=== PATIENT | male | born 1955 | race Caucasian/White ===

== ENCOUNTER → 2017-01-25 | Day surgery (SDC) | payer OTHER ==
[2017-01-12 10:09] VITALS: Ht 170.2 cm; Wt 113.6 kg
[~2017-01-25] VITALS: Ht 170.2 cm; Wt 113.6 kg
[~2017-01-25] MED LIST: ADVIN25050 INH; ALBUAER INH; ALBUT/IPRATROP 3MG/0.5MG NEB 3 ML VIAL INH ONE; AMLO-114 PO; ASPCH81X PO; ENDOSCOPIC MARKER 5 ML SYR ONE; FRS/40 PO; KETAMINE HCL INJ 50 MG/ML 10 ML VIAL ONE; LIDOCAINE HCL 2% 2 ML VIAL (20MG/ML) ONE; METFTAB PO; METO50TA7 PO; MULT-506 PO; OXGN; POTA10TA PO; PROPOFOL IV EMULSION 10 MG/ML 20 ML VIAL IV ONE; SODIUM CHLORIDE 0.9% 500ML 500 ML IV ONE; SPR25 PO; SPRIN/30 INH; SULF800T23 PO
[2017-01-25 12:32] VITALS: PULSE 68; O2SAT 85
--- NOTE | 2017-01-25 12:39 | Endo History and Physical ---
History & Physical Date of Service: Jan 25, 2017. Chief Complaint: Hx of polyps Referring Physician: Anu Adams History of Present Illness 61 yo CM who presents for colonoscopy secondary to history of colon polyps. Past Medical History Arthritis, Hypertension, COPD, Liver Disease Past Surgical History Hx Cardiac Surgery: No Hx Internal Defibrillator: No Hx Pacemaker: No Hx Abdominal Surgery: No Hx of Implantable Prosthesis: No Hx Post-Op Nausea and Vomiting: No Hx Cancer Surgery: No Hx Thoracic Surgery: Yes (BRONCHOSCOPY) Hx Orthopedic: Yes (LEFT/RT SHANNON) Hx Urinary Tract Surgery: No Family History None Social History Smoking Status: Current Every Day Smoker Hx Substance Use: No Hx Alcohol Use: Yes (6 BEERS WEEKLY) Allergies Coded Allergies: No Known Allergies (Unverified , 01/25/17) Current Medications Reported Home Medications Medications Dose Route/Sig Max Daily Dose Days Date Category Bactrim Ds 800MG/160MG (Trimethoprim/Sulfamethoxazole) Tab 1 Tab PO BID 01/15/17 Reported Toprol-Xl (Metoprolol Succinate) 50 Mg Tabcr 50 Mg PO QAM 01/12/17 Reported Spiriva Handihaler (Tiotropium [place]) 30 Puff/540 Mcg Aerp 1 Cap INH QAM 01/12/17 Reported Proventil Hfa (Albuterol Sulfate) 108 Mcg/Act Aer 2 Puff INH Q4H PRN 01/12/17 Reported Multivitamin (Multivitamins) Tab 1 Tab PO QAM 01/12/17 Reported Oxygen Gas 4 Liters NA CONTINOUS 01/12/17 Reported Glucophage Ext Rel (Metformin HCl) 500 Mg Tab 500 Mg PO QAM 01/12/17 Reported K-Tabs (Potassium Chloride) 10 Meq Tab 1 Tab PO QAM 01/12/17 Reported Lasix (Furosemide) 40 Mg Tab 20 Mg PO QPM 01/12/17 Reported Lasix (Furosemide) 40 Mg Tab 40 Mg PO QAM 01/12/17 Reported Aspirin Chewable (Aspirin) 81 Mg Chew 81 Mg PO QAM 01/12/17 Reported Spironolactone 25 Mg Tab 25 Mg PO QAM 04/08/14 Reported Advair Diskus 250-50 Mcg/Dose (Fluticasone Prop/Salmeterol) 14 Puff/1 Inhaler Aerp 1 Puff INH BID 10/02/13 Reported Norvasc (Amlodipine Besylate) 10 Mg Tab 10 Mg PO QAM 01/31/13 Reported Vital Signs Weight (Kilograms): 113.64 Height (Feet): 5 Height (Inches): 7 Date Time Temp Pulse Resp B/P (MAP) Pulse Ox O2 Delivery O2 Flow Rate FiO2 01/25/17 12:32 68 18 85 Mask 3.0 01/25/17 12:28 36.6 73 18 126/72 (90) 92 Mask 6 Physical Exam General Appearance: WD/WN, no apparent distress Respiratory/Chest: Auscultation: breath sounds normal Cardiovascular: Heart Auscultation: RRR Abdomen: Bowel Sounds: normal Inspection & Palpation: soft, non-distended, no tenderness, guarding & rebound Assessment and Plan Assessment: 61 yo CM who presents for colonoscopy secondary to history of colon polyps. Plan: Proceed with colonoscopy.
--- NOTE | 2017-01-25 13:27 | GI REPORT ---
Procedure Date: 01/25/2017 12:23 PM Procedure: Colonoscopy Indications: High risk colon cancer surveillance: Personal history of colonic polyps Medicines: Monitored Anesthesia Care Complications: No immediate complications. Estimated Blood Loss: Estimated blood loss: none. Procedure: Pre-Anesthesia Assessment: - Prior to the procedure, a History and Physical was performed, and patient medications and allergies were reviewed. The patient's tolerance of previous anesthesia was also reviewed. The risks and benefits of the procedure and the sedation options and risks were discussed with the patient. All questions were answered, and informed consent was obtained. Prior Anticoagulants: The patient has taken aspirin, last dose was 1 day prior to procedure. ASA Grade Assessment: IV - A patient with severe systemic disease that is a constant threat to life. After reviewing the risks and benefits, the patient was deemed in satisfactory condition to undergo the procedure. After I obtained informed consent, the scope was passed under direct vision. Throughout the procedure, the patient's blood pressure, pulse, and oxygen saturations were monitored continuously. The scope was introduced through the anus and advanced to the cecum, identified by appendiceal orifice and ileocecal valve. The colonoscopy was performed without difficulty. The patient tolerated the procedure well. The quality of the bowel preparation was good. The terminal ileum, ileocecal valve, appendiceal orifice, and rectum were photographed. Findings: A 30 mm polypoid lesion was found in the ascending colon. The lesion was multi-lobulated. No bleeding was present. This was biopsied with a cold forceps for histology. Area was tattooed with an injection of 4 mL of Becca ink. A 4 mm polyp was found in the rectum. The polyp was sessile. The polyp was removed with a hot snare. Resection and retrieval were complete. Non-bleeding internal hemorrhoids were found during retroflexion. The hemorrhoids were small. Impression: - Rule out malignancy, polypoid lesion in the ascending colon. Biopsied. Tattooed. - One 4 mm polyp in the rectum, removed with a hot snare. Resected and retrieved. - Non-bleeding internal hemorrhoids. Recommendation: - Resume previous diet. - Continue present medications. - Repeat colonoscopy for surveillance based on pathology results. - Return to primary care physician as previously scheduled. Earnest Andersen DO 01/25/2017 1:27:34 PM This report has been signed electronically. Note Initiated On: 01/25/2017 12:23 PM I attest to the content of the Intraoperative Record and orders documented therein, exceptions below
--- NOTE | 2017-01-25 13:28 | Discharge Instructions ---
Endoscopy Patient Instructions Date / Procedure(s) Performed Jan 25, 2017. Colonoscopy Allergy Information Coded Allergies: No Known Allergies (Unverified , 01/25/17) Discharge Date / Findings Jan 25, 2017. Polypoid mass in Ascending colon s/p biopsies with Becca Ink tattoo Rectal polyp Internal hemorrhoids Medication Instructions Stopped Medication(s): Aspirin last taken on 01/24/17 Metformin last taken on OK to resume all medications today as prescribed Reported Home Medications Medications Dose Route/Sig Max Daily Dose Days Date Category Bactrim Ds 800MG/160MG (Trimethoprim/Sulfamethoxazole) Tab 1 Tab PO BID 01/15/17 Reported Toprol-Xl (Metoprolol Succinate) 50 Mg Tabcr 50 Mg PO QAM 01/12/17 Reported Spiriva Handihaler (Tiotropium [place]) 30 Puff/540 Mcg Aerp 1 Cap INH QAM 01/12/17 Reported Proventil Hfa (Albuterol Sulfate) 108 Mcg/Act Aer 2 Puff INH Q4H PRN 01/12/17 Reported Multivitamin (Multivitamins) Tab 1 Tab PO QAM 01/12/17 Reported Oxygen Gas 4 Liters NA CONTINOUS 01/12/17 Reported Glucophage Ext Rel (Metformin HCl) 500 Mg Tab 500 Mg PO QAM 01/12/17 Reported K-Tabs (Potassium Chloride) 10 Meq Tab 1 Tab PO QAM 01/12/17 Reported Lasix (Furosemide) 40 Mg Tab 20 Mg PO QPM 01/12/17 Reported Lasix (Furosemide) 40 Mg Tab 40 Mg PO QAM 01/12/17 Reported Aspirin Chewable (Aspirin) 81 Mg Chew 81 Mg PO QAM 01/12/17 Reported Spironolactone 25 Mg Tab 25 Mg PO QAM 04/08/14 Reported Advair Diskus 250-50 Mcg/Dose (Fluticasone Prop/Salmeterol) 14 Puff/1 Inhaler Aerp 1 Puff INH BID 10/02/13 Reported Norvasc (Amlodipine Besylate) 10 Mg Tab 10 Mg PO QAM 01/31/13 Reported Provider Instructions Activity Restrictions - No exercising or heavy lifting for 24 hours. - Do not drink alcohol the day of the procedure. - Do not drive a car or operate machinery until the day after the procedure. - Do not make any important decisions or sign important papers in 24 hours after the procedure. Following Day: - Return to full activity which may include returning to work/school. Diet Start your diet with liquids and light foods (jello, soup, juice, toast). Then eat your usual diet if not nauseated. Treatment For Common After Affects For mild abdominal pain, bloating, or excessive gas: - Rest - Eat lightly - Lie on right side Follow-Up Information Follow-up with Anu Adams as scheduled Anesthesia Information What You Should Know You have had a procedure that required some medicine to reduce anxiety and discomfort. This treatment is called moderate sedation. After receiving the treatment, you may be sleepy, but you will be able to breathe on your own. The effects of the treatment may last for several hours. Follow these instructions along with Activity/Diet recommendations noted above: * Do NOT do anything where dizziness or clumsiness would be dangerous. * Rest quietly at home today, then you can be up and about tomorrow. * Have a responsible person stay with you the rest of today. * You may have had an I.V. today. If so, you may take the dressing off later today. Recommendations Call your doctor if: * Trouble breathing * Continuous vomiting for more than 24 hours * Temperature above 101 degrees * Severe abdominal pain or bloating * Pain not relieved by pain medicine ordered * There is increased drainage or redness from any incision * A large amount of rectal bleeding greater than 2-3 tablespoons. (If you had a polyp/s removed or have hemorrhoids, a small amount of blood - from the rectum is to be expected.) * You have any unanswered questions or concerns. IN THE EVENT OF A SERIOUS EMERGENCY, GO TO THE NEAREST EMERGENCY ROOM Your discharge instructions were prepared by provider Earnest Andersen. Patient Instructions Signature Page Michael Berry Patient (or Guardian) Signature/Date: I have read and understand the instructions given to me by my caregivers. Caregiver/RN/Doctor Signature/Date: The above-named patient and/or guardian has received patient instructions on this date. + Original Patient Signature Page (only) stays with chart. Please make copy for patient.
--- NOTE | 2017-01-25 13:42 | Anesthesiology Progress Note ---
Anesthesia Post Op Note Date & Time Jan 25, 2017 at 13:42 Vital Signs Pain Intensity: 0 Vital Signs Past 12 Hours Date Time Temp Pulse Resp B/P (MAP) Pulse Ox O2 Delivery O2 Flow Rate FiO2 01/25/17 13:32 69 18 121/68 (85) 90 Mask 5 01/25/17 13:20 87 5 01/25/17 13:17 74 18 112/71 (85) 83 Mask 5 01/25/17 12:32 68 18 85 Mask 3.0 01/25/17 12:28 36.6 73 18 126/72 (90) 92 Mask 6 Notes Mental Status: alert / awake / arousable, participated in evaluation Pt Amnestic to Procedure: Yes Nausea / Vomiting: adequately controlled Pain: adequately controlled Airway Patency, RR, SpO2: stable & adequate BP & HR: stable & adequate Hydration State: stable & adequate Anesthetic Complications: no major complications apparent
[2017-01-25 13:47] VITALS: BP 134/73; PULSE 68; O2SAT 85
== END | disposition home or self-care (01) ==
LOC: C.GI 11:37
PROVIDERS: ATTEND Internal Medicine
DX: Z12.11 Encounter for screening for malignant neoplasm of colon (principal); D12.2 Benign neoplasm of ascending colon; K62.1 Rectal polyp; K64.8 Other hemorrhoids; Z86.010 Personal history of colon polyps; Z86.19 Personal history of other infectious and parasitic diseases; E11.9 Type 2 diabetes mellitus without complications; J44.9 Chronic obstructive pulmonary disease, unspecified; F17.200 Nicotine dependence, unspecified, uncomplicated; Z96.643 Presence of artificial hip joint, bilateral; Z98.42 Cataract extraction status, left eye

== ENCOUNTER 2017-03-07 17:00 | Inpatient (IN) | payer OTHER ==
[~2017-03-07] VITALS: Ht 170.2 cm; Wt 106.0 kg
[~2017-03-07 17:00] MED LIST changes: -ALBUT/IPRATROP 3MG/0.5MG NEB 3 ML VIAL INH ONE; -AMLO-114 PO; +AMLO10TA3 PO; +CEPH500C2 PO; -ENDOSCOPIC MARKER 5 ML SYR ONE; +FURO-85 PO; -KETAMINE HCL INJ 50 MG/ML 10 ML VIAL ONE; -LIDOCAINE HCL 2% 2 ML VIAL (20MG/ML) ONE; -METO50TA7 PO; +METO50TA8 PO; -PROPOFOL IV EMULSION 10 MG/ML 20 ML VIAL IV ONE; -SODIUM CHLORIDE 0.9% 500ML 500 ML IV ONE; +SPIR25TA6 PO; -SPR25 PO; -SULF800T23 PO
[2017-03-07] MEDS ORDERED: ALBUT/IPRATROP 3MG/0.5MG NEB 3 ML VIAL INH ONE (17:15)
--- NOTE | 2017-03-07 17:21 | EMERGENCY ROOM VISIT NOTE ---
History Report prepared by Marina: Armida Moran Under the Supervision of: Dr. Tiburcio Romo M.D. First contact with patient: 16:59 Stated Complaint: RESP. DISTRESS History of Present Illness The patient is a 61 year old male who presents to the Emergency Room with complaints of persistent SOB starting several days ago. The patient has a history of severe COPD and is normally on 4L of oxygen. 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 He was found to be excessively hypoxic. He has been unable to sleep lying down for the past several days because it worsens his SOB. He also reports increased fluid in the legs and abdomen. His Lasix was doubled 5 days ago. The patient was seen at the wound care clinic 5 days ago. He is currently on Keflex. He is not on any blood thinners besides aspirin. He is not on CPAP or BiPAP at home. Source of History: patient Onset: several days ago Position: other (global) Quality: other (SOB) Timing: other (persistent) Modifying Factors (Worsening): other (lying down) Note: Pt reports increased leg swelling and fluid in abdomen. Review of Systems See HPI for pertinent positives & negatives. A total of 10 systems reviewed and were otherwise negative. Past Medical & Surgical Medical Problems: (1) Chronic respiratory failure (2) COPD (chronic obstructive pulmonary disease) (3) History of hepatitis C (4) Hypertension (5) Rigth Hip DJD Social History Problems: (1) Alcohol use (2) Tobacco use Family History No pertinent family history stated. Social History Smoking Status: Current Every Day Smoker Drug Use: none Marital Status: single Occupation Status: employed, disabled Current/Historical Medications Scheduled Amlodipine (Norvasc), 10 MG PO QAM Aspirin (Aspirin Ec), 81 MG PO DAILY Cephalexin Monohydrate (Keflex), 500 MG PO TID Fluticasone Prop/Salmeterol (Advair Diskus 250-50 Mcg/Dose), 1 PUFF INH BID Furosemide (Lasix), 40 MG PO BID Furosemide (Lasix), 20 MG PO BID Home O2 Therapy (Oxygen), 4 LITERS NA CONTINOUS Metformin Ext Rel (Glucophage Ext Rel), 500 MG PO QAM Metoprolol Succ (Toprol Xl) (Toprol-Xl), 50 MG PO QAM Multivitamin (Multivitamin), 1 TAB PO QAM Potassium Chloride (K-Tabs), 10 MEQ PO QAM Spironolactone (Spironolactone), 25 MG PO QAM Tiotropium [place] (Spiriva Handihaler), 1 CAP INH QAM Scheduled PRN Albuterol Sulfate (Proventil Hfa), 2 PUFF INH Q4H PRN for Shortness of Breath Allergies Coded Allergies: No Known Allergies (Unverified , 03/07/17) Physical Exam Vital Signs Date Time Temp Pulse Resp B/P (MAP) Pulse Ox O2 Delivery O2 Flow Rate FiO2 03/07/17 19:25 77 14 94 03/07/17 19:21 77 17 90 03/07/17 19:16 75 18 92 03/07/17 19:11 78 14 94 03/07/17 19:06 73 17 94 03/07/17 19:01 75 16 125/81 95 03/07/17 18:56 74 15 96 03/07/17 18:51 76 23 93 03/07/17 18:46 73 16 94 03/07/17 18:41 74 19 93 03/07/17 18:36 74 19 93 03/07/17 18:31 67 15 120/71 92 03/07/17 18:26 66 13 93 03/07/17 18:21 67 13 94 03/07/17 18:16 68 15 94 03/07/17 18:11 66 17 92 03/07/17 18:06 67 22 94 03/07/17 18:01 66 127/72 94 BiPAP 03/07/17 18:00 65 14 93 03/07/17 17:46 100 BiPAP 03/07/17 17:34 57 100 60 03/07/17 17:33 53 13 100 BiPAP/CPAP 60 03/07/17 17:31 120/72 03/07/17 17:30 87 Nasal Cannula 7.0 03/07/17 17:30 62 14 97 BiPAP 03/07/17 17:20 36.6 65 20 127/78 86 Nasal Cannula 6.0 03/07/17 17:20 86 Nasal Cannula 03/07/17 17:13 68 03/07/17 17:06 127/79 Physical Exam GENERAL: Patient is a healthy-appearing well-nourished male HEAD: Normocephalic atraumatic EYES: Ocular movements intact pupils equal and react to light OROPHARYNX mucous membranes are moist no exudates present no erythema or edema present NECK: Supple no nuchal rigidity CHEST: Good equal expansion LUNGS: Distant breath sounds. CARDIAC: Normal S1 and S2 ABDOMEN: Soft nontender no guarding BACK: No CVA tenderness EXTREMITIES: Chronic venous stasis changes bilaterally to the legs. NEURO: Patient is following commands and answering questions appropriately. Alert and oriented x3 Cranial Nerves 2-12 grossly intact Medical Decision & Procedures ER Provider Diagnostic Interpretation: X-ray results as stated below per interpretation by me and the radiologist: CHEST ONE VIEW PORTABLE CLINICAL HISTORY: 61 years-old Male presenting with Pt c/o hypoxia. TECHNIQUE: Portable upright AP view of the chest was obtained. COMPARISON: 08/26/2015. FINDINGS: Atherosclerosis of aortic arch. Cardiac silhouette remains enlarged. Prominence of pulmonary vasculature unchanged. Interval increase in patchy diffuse bilateral opacities with a mid to basilar predominance. No large pleural effusion or pneumothorax. Osseous structures normal. Upper abdomen normal. IMPRESSION: 1. Cardiomegaly in the setting of pulmonary vascular prominence and mid to basilar bilateral patchy opacities concerning for pulmonary edema. Differential considerations include multifocal pneumonia or less likely aspiration. Electronically signed by: Milton Johnson M.D. 03/07/2017 6:28 PM Dictated Date/Time: 03/07/2017 6:26 PM Laboratory Results 03/07/17 17:30 Red Blood Count 5.09, Mean Corpuscular Volume 85.1, Mean Corpuscular Hemoglobin 26.3, Mean Corpuscular Hemoglobin Concent 30.9, Mean Platelet Volume 9.2, Neutrophils (%) (Auto) 77.8, Lymphocytes (%) (Auto) 13.6, Monocytes (%) (Auto) 6.4, Eosinophils (%) (Auto) 1.0, Basophils (%) (Auto) 1.0, Neutrophils # (Auto) 6.52, Lymphocytes # (Auto) 1.14, Monocytes # (Auto) 0.54, Eosinophils # (Auto) 0.08, Basophils # (Auto) 0.08 03/07/17 17:30 Test 03/07/17 17:30 03/07/17 17:31 03/07/17 17:36 03/07/17 17:45 White Blood Count 8.38 K/uL (4.8-10.8) Red Blood Count 5.09 M/uL (4.7-6.1) Hemoglobin 13.4 g/dL (14.0-18.0) Hematocrit 43.3 % (42-52) Mean Corpuscular Volume 85.1 fL (80-100) Mean Corpuscular Hemoglobin 26.3 pg (25-34) Mean Corpuscular Hemoglobin Concent 30.9 g/dl (32-36) Platelet Count 218 K/uL (130-400) Mean Platelet Volume 9.2 fL (7.4-10.4) Neutrophils (%) (Auto) 77.8 % Lymphocytes (%) (Auto) 13.6 % Monocytes (%) (Auto) 6.4 % Eosinophils (%) (Auto) 1.0 % Basophils (%) (Auto) 1.0 % Neutrophils # (Auto) 6.52 K/uL (1.4-6.5) Lymphocytes # (Auto) 1.14 K/uL (1.2-3.4) Monocytes # (Auto) 0.54 K/uL (0.11-0.59) Eosinophils # (Auto) 0.08 K/uL (0-0.5) Basophils # (Auto) 0.08 K/uL (0-0.2) RDW Standard Deviation 62.2 fL (36.4-46.3) RDW Coefficient of Variation 20.1 % (11.5-14.5) Immature Granulocyte % (Auto) 0.2 % Immature Granulocyte # (Auto) 0.02 K/uL (0.00-0.02) Polychromasia 1+ Anisocytosis PRESENT Macrocytosis PRESENT Prothrombin Time 11.9 SECONDS (9.0-12.0) Prothromb Time International Ratio 1.1 (0.9-1.1) Estimated GFR () 84.5 Estimated GFR (Non- 72.9 BUN/Creatinine Ratio 10.0 (10-20) Calcium Level 8.6 mg/dl (8.5-10.1) Magnesium Level 2.0 mg/dl (1.8-2.4) Total Bilirubin 1.0 mg/dl (0.2-1) Aspartate Amino Transf (AST/SGOT) 12 U/L (15-37) Alanine Aminotransferase (ALT/SGPT) 15 U/L (12-78) Alkaline Phosphatase 98 U/L (45-117) Total Creatine Kinase 22 U/L (39-308) Creatine Kinase MB 0.7 ng/ml (0.5-3.6) Creatine Kinase MB Ratio 3.2 (0-3.0) Troponin I < 0.015 ng/ml (0-0.045) Pro-B-Type Natriuretic Peptide 4726 pg/ml (0-900) Total Protein 7.8 gm/dl (6.4-8.2) Albumin 3.1 gm/dl (3.4-5.0) Globulin 4.7 gm/dl (2.5-4.0) Albumin/Globulin Ratio 0.7 (0.9-2) Bedside Lactic Acid Venous 1.88 mmol/L (0.90-1.70) Bedside Hemoglobin 15.0 g/dl (14.0-18.0) Bedside Hematocrit 44 % (42-52) Bedside Sodium 138 mEq/L (135-144) Bedside Potassium 3.9 mEq/L (3.3-5.0) Bedside Chloride 98 mEq/L (101-112) Bedside Total CO2 30 mEq/l (24-31) Anion Gap 16.0 mmol/L (16-25) Bedside Blood Urea Nitrogen 10 mg/dl (7-18) Bedside Creatinine 1.1 mg/dl (0.6-1.3) Bedside Glucose (other) 92 mg/dl (70-99) Bedside Ionized Calcium (Edgar) 1.09 mmol/l (1.12-1.32) Influenza Type A (RT-PCR) Neg for Influ A (NEG) Influenza Type A Antigen Neg for Influ A (NEG) Influenza Type B Antigen Neg for Influ B (NEG) Influenza Type B (RT-PCR) Neg for Influ B (NEG) Test 03/07/17 18:07 Arterial Blood pH 7.46 (7.35-7.45) Arterial Blood Partial Pressure CO2 38 mmHg (35-46) Arterial Blood Partial Pressure O2 70 mm/Hg (80-95) Arterial Blood HCO3 27 mmol/L (19-24) Arterial Blood Oxygen Saturation 93.9 % (90-95) Arterial Blood Base Excess 2.9 mEq/L (-9-1.8) Arterial Blood Gas Delivery 40% Brian Test POS (POS) Labs reviewed by ED physician. Medications Administered Medications (Trade) Dose Ordered Sig/González Route Start Time Stop Time Status Last Admin Dose Admin Albuterol/ Ipratropium (Duoneb) 12 ml ONE ONCE INH 03/07/17 17:15 03/07/17 17:18 DC 03/07/17 17:32 12 ML Magnesium Sulfate (Magnesium Sulfate) 1 gm NOW STAT IV 03/07/17 18:15 03/07/17 18:16 DC 03/07/17 18:43 1 GM Furosemide (Lasix Inj) 40 mg NOW STAT IV 03/07/17 18:28 03/07/17 18:29 DC 03/07/17 18:43 40 MG Cefepime HCl 2000 mg/Dextrose 122 ml @ 200 mls/hr NOW STAT IV 03/07/17 18:31 03/07/17 19:07 DC 03/07/17 20:10 200 MLS/HR Levofloxacin (Levaquin / D5W) 750 mg NOW STAT IV 03/07/17 18:31 03/07/17 18:33 DC 03/07/17 20:29 750 MG Vancomycin HCl 1000 mg/Sodium Chloride 270 ml @ 125 mls/hr NOW STAT IV 03/07/17 18:31 03/07/17 20:40 DC 03/07/17 19:34 125 MLS/HR ECG Indication: SOB/dyspnea Rate (beats per minute): 64 Rhythm: normal sinus Findings: T-wave inversion (Anterior), no acute ischemic change, no ectopy ED Course 1711: Past medical records reviewed. The patient was evaluated in room B7. A complete history and physical examination was performed. 1715: Duoneb 12 ml INH. 1806: Upon reexamination the patient is feeling much better. I discussed results and treatment plan with the patient. He verbalizes agreement and understanding. The patient will be evaluated for further management. 1815: Magnesium Sulfate 1 gm IV. 1828: Lasix Inj 40 mg IV. 1831: Vancomycin HCl 1000 mg/Sodium Chloride 270 ml @ 125 mls/hr IV, Levofloxacin 750 mg IV, Cefepime HCl 2000 mg/Dextrose 122 ml @ 200 mls/hr IV. 1840: I discussed the patient's case with Dr. Bojorquez, [facility] hospitalist, she has agreed to evaluate the patient for further management and care. Medical Decision Differential diagnosis: Etiologies such as infections, reactive airway disease, pneumonia, pneumothorax , COPD, CHF, cardiac ischemia, pulmonary embolism, musculoskeletal, gastrointestinal, as well as others were entertained. This is a 61-year-old male who presents emergency department with shortness of breath. The patient was sent to the emergency department because he is hypoxic. He was placed on BiPAP and given an hour-long breathing treatment. He was also given Lasix based on the patient's chest x-ray. In addition the patient was pancultured up and started on antibiotics including cefepime Levaquin and vancomycin. Repeat examination revealed improvement patient's symptoms. The patient was discussed with the hospitalist service who agreed to admit the patient. Patient and family were in agreement with the treatment plan. Medication Reconcilliation Current Medication List: was personally reviewed by me Blood Pressure Screening Patient's blood pressure: Normal blood pressure Blood pressure disposition: Did not require urgent referral Consults Time Called: 1832 Consulting Physician: Dr. Bojorquez [facility] hospitalist Returned Call: 1840 I discussed the patient's case with her, she has agreed to evaluate the patient for further management and care. Impression Primary Impression: Hypoxia Additional Impression: CHF exacerbation Critical Care I have personally spent greater than 30 minutes of critical care time in the direct management of this patient. This includes bedside care, interpretation of diagnostic studies, and testing, discussion with consultants, patient, and family members, and other required patient management activities. This 30 minutes is in excess of all separately billable procedures. Scribe Attestation The scribe's documentation has been prepared under my direction and personally reviewed by me in its entirety. I confirm that the note above accurately reflects all work, treatment, procedures, and medical decision making performed by me. Departure Information Dispostion Being Evaluated By Hospitalist Referrals Anu Adams M.D. (PCP) Problem Qualifiers Additional Impression: CHF exacerbation Congestive heart failure type: systolic Qualified Codes: I50.23 - Acute on chronic systolic (congestive) heart failure
[2017-03-07 17:33] VITALS: PULSE 53; O2SAT 100
[2017-03-07 17:34] VITALS: PULSE 57; O2SAT 100
[2017-03-07 17:47] LABS: BASO ABS # 0.08 K/uL (0-0.2); EOS ABS # 0.08 K/uL (0-0.5); HEMATOCRIT 43.3 % (42-52); HEMOGLOBIN 13.4 g/dL (14.0-18.0); IG# 0.02 K/uL (0.00-0.02); LYMPH % 13.6 %; LYMPH ABS # 1.14 K/uL (1.2-3.4); MEAN CELL VOLUME 85.1 fL (80-100); MEAN CORPUSCULAR HEMOGLOBIN 26.3 pg (25-34); MEAN CORPUSCULAR HGB CONC 30.9 g/dl (32-36); MEAN PLATELET VOLUME 9.2 fL (7.4-10.4); MONO % 6.4 %; MONO ABS # 0.54 K/uL (0.11-0.59); NEUT % 77.8 %; NEUT ABS # 6.52 K/uL (1.4-6.5); PLATELET COUNT 218 K/uL (130-400); RED CELL DISTRIBUTION WIDTH CV 20.1 % (11.5-14.5); RED CELL DISTRIBUTION WIDTH SD 62.2 fL (36.4-46.3); WHITE BLOOD COUNT 8.38 K/uL (4.8-10.8)
[2017-03-07 18:03] LABS: INR 1.1 (0.9-1.1)
[2017-03-07 18:11] LABS: ALBUMIN 3.1 gm/dl (3.4-5.0); ALT/SGPT 15 U/L (12-78); AST/SGOT 12 U/L (15-37); BLOOD UREA NITROGEN 11 mg/dl (7-18); CALCIUM 8.6 mg/dl (8.5-10.1); CARBON DIOXIDE 28 mmol/L (21-32); CREATININE 1.09 mg/dl (0.60-1.40); GLUCOSE 84 mg/dl (70-99); POTASSIUM 3.8 mmol/L (3.5-5.1); SODIUM 134 mmol/L (136-145)
[2017-03-07 18:12] LABS: INFLUENZA B ANTIGEN Neg for Influ B (NEG)
[2017-03-07 18:15] LABS: ALKALINE PHOSPHATASE 98 U/L (45-117); CKMB 0.7 ng/ml (0.5-3.6); TOTAL PROTEIN 7.8 gm/dl (6.4-8.2)
[2017-03-07] MEDS ORDERED: MAGNESIUM SULFATE 1GM / D5W 1 GM BAG IV STA (18:15)
[2017-03-07] MEDS ORDERED: ASPI81TA28 PO (18:23)
[2017-03-07] MEDS ORDERED: FUROSEMIDE 40 MG/4 ML VIAL IV STA (18:28)
--- NOTE | 2017-03-07 18:29 | DIAGNOSTIC IMAGING REPORT ---
CHEST ONE VIEW PORTABLE CLINICAL HISTORY: 61 years-old Male presenting with Pt c/o hypoxia. TECHNIQUE: Portable upright AP view of the chest was obtained. COMPARISON: 08/26/2015. FINDINGS: Atherosclerosis of aortic arch. Cardiac silhouette remains enlarged. Prominence of pulmonary vasculature unchanged. Interval increase in patchy diffuse bilateral opacities with a mid to basilar predominance. No large pleural effusion or pneumothorax. Osseous structures normal. Upper abdomen normal. IMPRESSION: 1. Cardiomegaly in the setting of pulmonary vascular prominence and mid to basilar bilateral patchy opacities concerning for pulmonary edema. Differential considerations include multifocal pneumonia or less likely aspiration. Electronically signed by: Milton Johnson M.D. 03/07/2017 6:28 PM Dictated Date/Time: 03/07/2017 6:26 PM
[2017-03-07] MEDS ORDERED: VANCOMYCIN IV 1,000 MG in SODIUM CHLORIDE 0.9% 250ML 250 ML IV STA (18:31)
[2017-03-07] MEDS ORDERED: CEFEPIME IV 2,000 MG in DEXTROSE 5% 100ML 100 ML IV STA (18:31)
[2017-03-07] MEDS ORDERED: LEVAQUIN 750MG / 150ML D5W IV STA (18:31)
[2017-03-07 18:58] LABS: INFLUENZA A PCR Neg for Influ A (NEG); INFLUENZA B PCR Neg for Influ B (NEG)
[2017-03-07] MEDS ORDERED: ONDANSETRON INJ 2 MG/ML 2 ML VIAL IV PRN (19:30)
[2017-03-07] MEDS ORDERED: POLYETHYLENE (MIRALAX) 17 GM PACK PO PRN (19:30)
[2017-03-07] MEDS ORDERED: ACETAMINOPHEN 325 MG TAB PO PRN (19:30)
[2017-03-07 19:36] LABS: ISTAT CREATININE 1.1 mg/dl (0.6-1.3); ISTAT IONIZED CALCIUM 1.09 mmol/l (1.12-1.32); ISTAT POTASSIUM 3.9 mEq/L (3.3-5.0)
[2017-03-07] MEDS ORDERED: LEVOFLOXACIN / D5W 750 MG in PREMIXED IN D5W 150 ML IV SCH (19:45)
--- NOTE | 2017-03-07 20:08 | History and Physical ---
History & Physical Date & Time of Service: Mar 07, 2017 at 19:01 Chief Complaint: Resp. Distress Primary Care Physician: Anu Adams M.D. History of Present Illness Source: patient, family arrived to the ED after seeing his climate change risk assessor in the office today and he recommended he be evaluated here. He has had increasing lower extremity edema and sob for the past couple of weeks and increased his lasix on Sunday. He has had a mild cough with yellow sputum. No fever, but he has had chills. No decrease in appetite, no nausea or vomiting, no diarrhea. He has had a decrease in urination. No cp or palpitations. He wears 4 liters of oxygen at home. He reports quitting smoking a week ago. He has a history of MSSA in his lower extremity wounds for which he takes Keflex tid and sees wound clinic. ROS Constitutional: no aches, sweats or fever Respiratory: see HPI, no wheezing Cardiac: no chest pain, palpitations, edema, lightheadedness, baseline orthopnea GI: no abdominal pain, nausea, vomiting, diarrhea or constipation : no dysuria or hesitancy Extremities: no joint pain or weakness Skin: no rash, wounds right and left lower extremities Other systems reviewed an negative Past Medical/Surgical History Medical Problems: (1) Chronic respiratory failure Status: Chronic (2) COPD (chronic obstructive pulmonary disease) Status: Chronic (3) History of hepatitis C Permanent Comment: received interferon Status: Chronic (4) Hypertension Status: Chronic (5) Rigth Hip DJD Status: Chronic Social History Problems: (1) Alcohol use Status: Chronic (2) Tobacco use Status: Chronic Family History Mother from CVA, DM Father from lung CA Social History Smoking Status: Former Smoker (quit a week ago) Smokeless Tobacco Use: No Alcohol Use: none (no alcohol in over a month) Drug Use: none Marital Status: single Housing status: lives alone Occupational Status: unemployed (disability), disabled Immunizations History of Influenza Vaccine: Yes Influenza Vaccine Date: Dec 31, 2012 History of Tetanus Vaccine?: unsure History of Pneumococcal: No History of Hepatitis B Vaccine: Yes Hepatitis Immunization Date: Jan 28, 2003 Allergies Coded Allergies: No Known Allergies (Unverified , 03/07/17) Home Medications Scheduled Amlodipine (Norvasc), 10 MG PO QAM Aspirin (Aspirin Ec), 81 MG PO DAILY Cephalexin Monohydrate (Keflex), 500 MG PO TID Fluticasone Prop/Salmeterol (Advair Diskus 250-50 Mcg/Dose), 1 PUFF INH BID Furosemide (Lasix), 40 MG PO BID Furosemide (Lasix), 20 MG PO BID Home O2 Therapy (Oxygen), 4 LITERS NA CONTINOUS Metformin Ext Rel (Glucophage Ext Rel), 500 MG PO QAM Metoprolol Succ (Toprol Xl) (Toprol-Xl), 50 MG PO QAM Multivitamin (Multivitamin), 1 TAB PO QAM Potassium Chloride (K-Tabs), 10 MEQ PO QAM Spironolactone (Spironolactone), 25 MG PO QAM Tiotropium [place] (Spiriva Handihaler), 1 CAP INH QAM Scheduled PRN Albuterol Sulfate (Proventil Hfa), 2 PUFF INH Q4H PRN for Shortness of Breath Physical Exam Vital Signs Date Time Temp Pulse Resp B/P (MAP) Pulse Ox O2 Delivery O2 Flow Rate FiO2 03/07/17 18:01 66 127/72 94 BiPAP 03/07/17 18:00 65 14 93 03/07/17 17:46 100 BiPAP 03/07/17 17:34 57 100 60 03/07/17 17:33 53 13 100 BiPAP/CPAP 60 03/07/17 17:31 120/72 03/07/17 17:30 87 Nasal Cannula 7.0 03/07/17 17:30 62 14 97 BiPAP 03/07/17 17:20 36.6 65 20 127/78 86 Nasal Cannula 6.0 03/07/17 17:20 86 Nasal Cannula 03/07/17 17:13 68 03/07/17 17:06 127/79 General: no distress Eyes: normal inspection, PERLL Respiratory: chest non tender, clear to auscultation, normal breath sounds, no respiratory distress, no accessory muscle use Cardiac: regular rate and rhythm, no rub or gallop, no murmur, +1 pitting edema lower extremities (skin very taught) GI/: active bowel sounds, no abd pain or tenderness, firm, distended Extremities: normal range of motion, normal strength, non tender Neuro/Psych: alert and oriented x 3, normal mood and affect Skin: dusky lower extremities with multiple surface sloughy wounds Diagnostics Laboratory Results Results Past 24 Hours Test 03/07/17 17:30 03/07/17 17:45 03/07/17 18:07 Range/Units White Blood Count 8.38 4.8-10.8 K/uL Red Blood Count 5.09 4.7-6.1 M/uL Hemoglobin 13.4 14.0-18.0 g/dL Hematocrit 43.3 42-52 % Mean Corpuscular Volume 85.1 80-100 fL Mean Corpuscular Hemoglobin 26.3 25-34 pg Mean Corpuscular Hemoglobin Concent 30.9 32-36 g/dl Platelet Count 218 130-400 K/uL Mean Platelet Volume 9.2 7.4-10.4 fL Neutrophils (%) (Auto) 77.8 % Lymphocytes (%) (Auto) 13.6 % Monocytes (%) (Auto) 6.4 % Eosinophils (%) (Auto) 1.0 % Basophils (%) (Auto) 1.0 % Neutrophils # (Auto) 6.52 1.4-6.5 K/uL Lymphocytes # (Auto) 1.14 1.2-3.4 K/uL Monocytes # (Auto) 0.54 0.11-0.59 K/uL Eosinophils # (Auto) 0.08 0-0.5 K/uL Basophils # (Auto) 0.08 0-0.2 K/uL RDW Standard Deviation 62.2 36.4-46.3 fL RDW Coefficient of Variation 20.1 11.5-14.5 % Immature Granulocyte % (Auto) 0.2 % Immature Granulocyte # (Auto) 0.02 0.00-0.02 K/uL Prothrombin Time 11.9 9.0-12.0 SECONDS Prothromb Time International Ratio 1.1 0.9-1.1 Sodium Level 134 136-145 mmol/L Potassium Level 3.8 3.5-5.1 mmol/L Chloride Level 99 98-107 mmol/L Carbon Dioxide Level 28 21-32 mmol/L Anion Gap 7.0 3-11 mmol/L Blood Urea Nitrogen 11 7-18 mg/dl Creatinine 1.09 0.60-1.40 mg/dl Estimated GFR () 84.5 Estimated GFR (Non- 72.9 BUN/Creatinine Ratio 10.0 10-20 Random Glucose 84 70-99 mg/dl Calcium Level 8.6 8.5-10.1 mg/dl Total Bilirubin 1.0 0.2-1 mg/dl Aspartate Amino Transf (AST/SGOT) 12 15-37 U/L Alanine Aminotransferase (ALT/SGPT) 15 12-78 U/L Alkaline Phosphatase 98 45-117 U/L Total Creatine Kinase 22 39-308 U/L Creatine Kinase MB 0.7 0.5-3.6 ng/ml Creatine Kinase MB Ratio 3.2 0-3.0 Troponin I < 0.015 0-0.045 ng/ml Total Protein 7.8 6.4-8.2 gm/dl Albumin 3.1 3.4-5.0 gm/dl Globulin 4.7 2.5-4.0 gm/dl Albumin/Globulin Ratio 0.7 0.9-2 Influenza Type A (RT-PCR) Neg for Influ A NEG Influenza Type A Antigen Neg for Influ A NEG Influenza Type B Antigen Neg for Influ B NEG Influenza Type B (RT-PCR) Neg for Influ B NEG Arterial Blood pH 7.46 7.35-7.45 Arterial Blood Partial Pressure CO2 38 35-46 mmHg Arterial Blood Partial Pressure O2 70 80-95 mm/Hg Arterial Blood HCO3 27 19-24 mmol/L Arterial Blood Oxygen Saturation 93.9 90-95 % Arterial Blood Base Excess 2.9 -9-1.8 mEq/L Arterial Blood Gas Delivery 40% Brian Test POS POS Microbiology Results 03/07/17 Blood Culture, Received Pending 03/07/17 Blood Culture, Received Pending Diagnostic Radiology CHEST ONE VIEW PORTABLE CLINICAL HISTORY: 61 years-old Male presenting with Pt c/o hypoxia. TECHNIQUE: Portable upright AP view of the chest was obtained. COMPARISON: 08/26/2015. FINDINGS: Atherosclerosis of aortic arch. Cardiac silhouette remains enlarged. Prominence of pulmonary vasculature unchanged. Interval increase in patchy diffuse bilateral opacities with a mid to basilar predominance. No large pleural effusion or pneumothorax. Osseous structures normal. Upper abdomen normal. IMPRESSION: 1. Cardiomegaly in the setting of pulmonary vascular prominence and mid to basilar bilateral patchy opacities concerning for pulmonary edema. Differential considerations include multifocal pneumonia or less likely aspiration. EKG Normal sinus rhythm Low voltage QRS ST & T wave abnormality, consider anterior ischemia Abnormal ECG When compared with ECG of 31-JAN-2013 11:37, Questionable change in QRS axis ST now depressed in Anterior leads T wave inversion now evident in Anterior leads Impression Assessment and Plan Mr. Berry is a 61 year old man here for increasing sob and edema over the past couple of weeks. Hypoxic respiratory failure secondary to unknown type of CHF (last Echo was 2012 ) vs possible pna - admit tele - ABG pO2 70, no CO2 retention, BNP 4700 - 40 mg IV lasix bid - strict Is&Os and daily weights - IV levaquin q24h - continue bipap and keep NPO for now, will evaluate - Echo - BC, sputum culture - consult cardiology EKG changes - anterior lead T wave inversion - trend trops - EKG am DM - hold metformin, ss COPD - QID duonebs - continue Spiriva, Advair LE wounds - hold Keflex while receiving IV Levaquin - wound culture shows susceptibility to Levaquin - continue daily dressing change with Aquacel - consult wound care HTN - continue metoprolol, amlodipine Advanced Directives Existing Advance Directive: No Existing Living Will: No Existing Power of Pewter Fabricator: No Existing Health Care Proxy: No Resuscitation Status FULL RESUSCITATION VTE Prophylaxis VTE Risk Assessment Done? Y/N: Yes Risk Level: Moderate Given or contraindicated: Enoxaparin (Lovenox)SQ Social Service Consult None Apply Reviewed: Pt Seen/Exam by Me History LULU Supervision Note: I interviewed and examined the patient. Discussed with LULU Rojo and agree with findings and plan as documented in the note. Any exceptions or clarifications are listed here: Patient is a 61-year-old male with a history of COPD, chronic hypoxemic respiratory failure, hepatitis C which has been treated, cirrhosis, suspected severe pulmonary hypertension, gout, peripheral arterial disease, colon polyp, peripheral edema, and diabetes mellitus type 2, who presents from his climate change risk assessor's office with severe hypoxia. He was found to be satting at 70% on 5 L in the climate change risk assessor's office. In the ER, he was placed on BiPAP, given one dose of IV Lasix 40 mg, and noted to have significant peripheral edema. His chest x-ray was significant for evidence of pulmonary edema versus aspiration pneumonia. The patient denies any fevers and has not been febrile here. His sputum production is about the same as it always is, he has a chronic cough which has not worsened. He was noted to be wheezing on exam though. He does not have an elevated white blood cell count, and he is not septic on arrival. He denies chest pain. He has never been diagnosed with congestive heart failure in the past. His last echocardiogram was in 2012 and showed no evidence of CHF. Vitals reviewed No acute distress, obese, sitting up in bed with BiPAP in place Anicteric sclerae Regular rate and rhythm, no murmurs gallops or rubs Lungs with diminished breath sounds throughout, some faint expiratory wheezes, he has significantly prolonged expiratory phase Abdomen positive bowel sounds, soft, positive tenderness palpation on the left flank, positive pitting edema of the abdominal wall is noted Extremities 3+ pitting woody edema in the legs to the thighs bilaterally, unable to palpate dorsalis pedis pulses through the edema Skin with dressings in place over the anterior tibia bilaterally that are clean dry and intact, chronic venous stasis changes present in the legs bilaterally Chest x-ray images personally reviewed by me that appear consistent with pulmonary edema ECG reviewed and shows new anterior T-wave inversions changed since 2012 Laboratories reviewed ABG with pH 7.46/38/70 Patient is a 61-year-old male with a history of COPD, chronic hypoxemic respiratory failure, hepatitis C which has been treated, cirrhosis, suspected severe pulmonary hypertension, gout, peripheral arterial disease, colon polyp, peripheral edema, and diabetes mellitus type 2, who presents from his climate change risk assessor's office with severe hypoxia, acute on chronic hypoxemic respiratory failure, and suspected acute CHF. -Wean off BiPAP to nasal cannula when able to, he is having trouble tolerating the BiPAP-could put him on high flow nasal cannula if needed as he is not retaining CO2 and is purely hypoxic -IV steroids and Levaquin for COPD exacerbation -Diurese with IV Lasix twice a day, continue daily spironolactone -Consider decreasing dose of amlodipine which may be contributing to his lower extremity edema -Check echocardiogram for LV function and for diastolic dysfunction, but suspect pulmonary hypertension as noted in outpatient record -Consult cardiology and pulmonology for further input/expertise -Check ultrasound of the abdomen for ascites to see if he needs paracentesis given his history of cirrhosis and increasing abdominal girth and pain -Trend the troponins and ECG in the morning given anterior T-wave inversions that are new since 2012-he denies chest pain -Consult wound care for his lower extremity wounds -Lovenox for DVT prophylaxis Documented By: Malina Bojorquez
[2017-03-07] MEDS ORDERED: CEPHALEXIN MONOHYDRATE 500 MG CAP PO SCH (21:00)
[2017-03-07] MEDS ORDERED: GLUCOSE 40% GEL 15 GM TUBE PO PRN (21:15)
[2017-03-07] MEDS ORDERED: DEXTROSE 50% 50 ML SYR IV PRN (21:15)
[2017-03-07] MEDS ORDERED: GLUCOSE 10 TABS/TUBE PO PRN (21:15)
[2017-03-07] MEDS ORDERED: GLUCAGON FOR INJ 1 MG VIAL SQ PRN (21:15)
--- NOTE | 2017-03-07 21:15 | NUR ---
arrived from the ED via liter for admission to room 234, awake and alert, denies discomfort at this time, color dusky, O2 saturation on 7L oxymask 86%, patient wants to eat and drink, explained right now he needs to wear his Bi-pap, stull hewer applied, admission nursing assessment complete, code word established, fall safety paper signed
[2017-03-07 21:25] VITALS: BP 119/66; PULSE 72; TEMP 36.6; Ht 170.2 cm; Wt 106.0 kg
[2017-03-07 21:31] VITALS: O2SAT 86
[2017-03-07] MEDS ORDERED: METHYLPREDNISOLONE IV 125 MG in SYRINGE 0 ML IV ONE (21:45)
[2017-03-07] MEDS: INSULIN ASPART 100 UNITS/ML 3 ML PEN SC SCH (21:50)
[2017-03-07] MEDS: FLUTICASONE/SALMETEROL 250/50 (ADVAIR) 14 PUFF/1 INHALER INH SCH (21:52)
[2017-03-07 23:38] VITALS: BP 127/70; PULSE 67; TEMP 36.6; O2SAT 93
[2017-03-08] VITALS (14 sets, daily range): BP systolic 113–150; BP diastolic 66–79; PULSE 71–90; TEMP 36.4–36.8; O2SAT 85–94
[2017-03-08] MEDS ORDERED: PIPERACILL/TAZOBAC IV 3.375 GM in DEXTROSE 5% 100ML 100 ML IV SCH ×2
--- NOTE | 2017-03-08 00:09 | NUR ---
A: Assessment completed- see EMR for full detail; VSS, - see EMR; AA&Ox4, Appropriate; NSR-SA, noted on monitor; Denies CP/SOB, Currently on BIPAP; pt. denies pain at this time; Pt. currently resting at edge of bed; Bilateral leg dressing CDI; no needs apparent or verbalized at this time; IV site intact; labs reviewed; safety reviewed; call-green & items of necessity in reach, encouraged to ring for assistance; will continue to monitor & assess; Pt for ABD ultrasound
--- NOTE | 2017-03-08 04:11 | NUR ---
A: Assessment completed- see EMR for full detail; VSS, - see EMR; AA&Ox4, Appropriate; NSR-SA, noted on monitor; Denies CP/SOB, Currently on BIPAP - removed to 4 LPM Oxymax, pt marinating SPO2 > 90%; pt. denies pain at this time; Pt. currently resting at edge of bed -pt repositions self ; encouraged to ring for assistance; will continue to monitor & assess;
[2017-03-08 04:39] LABS: BASO % 0.1 %; BASO ABS # 0.01 K/uL (0-0.2); HEMATOCRIT 43.6 % (42-52); HEMOGLOBIN 13.8 g/dL (14.0-18.0); IG# 0.02 K/uL (0.00-0.02); LYMPH % 4.3 %; LYMPH ABS # 0.32 K/uL (1.2-3.4); MEAN CELL VOLUME 84.7 fL (80-100); MEAN CORPUSCULAR HEMOGLOBIN 26.8 pg (25-34); MEAN CORPUSCULAR HGB CONC 31.7 g/dl (32-36); MEAN PLATELET VOLUME 9.2 fL (7.4-10.4); MONO % 0.4 %; MONO ABS # 0.03 K/uL (0.11-0.59); NEUT % 94.9 %; NEUT ABS # 7.11 K/uL (1.4-6.5); PLATELET COUNT 209 K/uL (130-400); RED CELL DISTRIBUTION WIDTH CV 19.8 % (11.5-14.5); WHITE BLOOD COUNT 7.49 K/uL (4.8-10.8)
[2017-03-08 04:57] LABS: BLOOD UREA NITROGEN 11 mg/dl (7-18); CALCIUM 8.6 mg/dl (8.5-10.1); CARBON DIOXIDE 27 mmol/L (21-32); CREATININE 1.04 mg/dl (0.60-1.40); GLUCOSE 133 mg/dl (70-99); POTASSIUM 3.7 mmol/L (3.5-5.1); SODIUM 134 mmol/L (136-145)
--- NOTE | 2017-03-08 06:49 | DIAGNOSTIC IMAGING REPORT ---
LIMITED ABDOMINAL ULTRASOUND FOR ASCITES DETERMINATION CLINICAL HISTORY: Ascites. History of cirrhosis. COMPARISON STUDY: No previous studies for comparison. FINDINGS: There is relatively low volume 4 quadrant ascites. IMPRESSION: Relatively low volume 4 quadrant ascites. Electronically signed by: Jakub Palacios M.D. 03/08/2017 6:48 AM Dictated Date/Time: 03/08/2017 6:46 AM
[2017-03-08] MEDS: ALBUT/IPRATROP 3MG/0.5MG NEB 3 ML VIAL INH SCH ×4 (07:11→19:08)
[2017-03-08] MEDS: INSULIN ASPART 100 UNITS/ML 3 ML PEN SC SCH ×4 (07:34→20:47)
--- NOTE | 2017-03-08 08:00 | NUR ---
A: Assessment completed. Refer to EMR for assessment details. NSR on tele. Patient denies any cp or sob at this time. Sitting up at bedside chair. Denies any needs or complaints at this time. Call green within reach. Will continue to monitor.
[2017-03-08] MEDS: POTASSIUM CHLORIDE 10 MEQ TABCR PO SCH (08:17)
[2017-03-08] MEDS: ASPIRIN 81 MG ECTAB PO SCH (08:17)
[2017-03-08] MEDS: AMLODIPINE BESYLATE 5 MG TAB PO SCH (08:18)
[2017-03-08] MEDS: METOPROLOL SUCC 50MG EXT REL TAB PO SCH (08:18)
[2017-03-08] MEDS: MULTIVITAMIN TAB PO SCH (08:18)
[2017-03-08] MEDS: SPIRONOLACTONE 25 MG TAB PO SCH (08:19)
[2017-03-08] MEDS: FLUTICASONE/SALMETEROL 250/50 (ADVAIR) 14 PUFF/1 INHALER INH SCH ×2 (08:19→20:43)
[2017-03-08] MEDS: ENOXAPARIN 40 MG/0.4 ML SYR SQ SCH (08:20)
[2017-03-08] MEDS: TIOTROPIUM BROMIDE 5 PUFF/90 MCG INH INH SCH (08:21)
[2017-03-08] MEDS: FUROSEMIDE INJ 40 MG in SYRINGE 0 ML IV SCH ×2 (08:27→20:43)
[2017-03-08] MEDS ORDERED: METHYLPREDNISOLONE IV 40 MG in SYRINGE 0 ML IV SCH (09:00)
--- NOTE | 2017-03-08 09:59 | CARDIOLOGY CONSULTATION ---
DATE OF CONSULTATION: 03/08/2017 DATE OF CONSULTATION: 03/08/2017 PERTINENT HISTORY: Mr. Berry is a 61-year-old male admitted yesterday in decompensated congestive heart failure. This consultation was ordered to assist in his management. Over the last weeks to months, the patient has noticed increasing lower extremity edema, abdominal girth, and exertional dyspnea. He was seen by his environmental permitting specialist yesterday and was sent directly to the Emergency Room for hospital admission for significant volume overload. Of note, the patient was seen in the wound clinic on Sunday by Dr. Mendoza. His furosemide was doubled at that time. The patient explains that there has been no change in his diuresis. The patient has severe pulmonary hypertension likely related to severe pulmonary disease. He had an echocardiogram performed in April 2016 at [facility]. The report notes normal left ventricular systolic function with ejection fraction of 60-65%. The right ventricle is dilated with decreased systolic function. The interventricular septum suggests both pressure and volume overload of the right ventricle. The patient does not typically follow with a roughener. He does have an upcoming appointment with Dr. Mendoza and Mr. Candelaria. PAST MEDICAL HISTORY: 1. Hypertension. 2. Presumed cor pulmonale. 3. COPD/emphysema -- home oxygen. 4. Chronic respiratory failure. 5. Pulmonary hypertension. 6. Cirrhosis. 7. Diabetes mellitus. 8. Peripheral vascular disease. 9. Gout. 10. Villous adenoma - January 2017 -- surgery planned. 11. Obesity. 12. DJD. 13. 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 MEDICATIONS: 1. Metoprolol succinate 50 mg daily. 2. Amlodipine 10 mg daily. 3. Spironolactone 25 mg per day. 4. Furosemide 40 mg IV twice daily. 5. Lovenox 40 mg IV q.a.m. 6. Aspirin 81 mg per day. 7. Potassium 10 mEq daily. 8. Spiriva 1 puff q. a.m. 9. Methylprednisolone 40 mg IV b.i.d. 10. Levofloxacin 500 mg IV daily. 11. Multivitamin 1 per day. 12. Advair Diskus 1 puff b.i.d. 13. Sliding scale insulin. 14. DuoNeb q.i.d. ALLERGIES: None. SOCIAL HISTORY: The patient is single. Currently on disability due to lung disease. Previously worked at [employer]. Has not smoked a cigarette in 1 week. Was smoking one-half pack cigarettes daily. Has not had a drink in over 1 month. Was a moderate to social drinker previously. FAMILY HISTORY: Mother in her 50s from a stroke. Father in his 50s from lung cancer. His siblings have diabetes. No early coronary artery disease. REVIEW OF SYSTEMS: A 10-point review of systems was negative except for that described above. PHYSICAL EXAMINATION: GENERAL: This is an obese white male lying at 45 degrees in bed without complaints. VITAL SIGNS: Blood pressure is 130/70 with a regular pulse of 76. Respiratory rate is 20. The patient is afebrile at 36.5 degrees Celsius. Saturations 90% on 2 liters nasal cannula. HEAD, EYES, EARS, NOSE, AND THROAT: Negative. NECK: Supple with full carotid upstrokes. No obvious bruits. Jugular venous pressure is elevated to the angle of the jaw at 90 degrees. CARDIOVASCULAR EXAMINATION: Reveals a regular rhythm with distant heart sounds. No obvious murmurs or S3. LUNGS: Note a few crackles at the bases but no rhonchi or wheezes. ABDOMEN: Obese with trace pitting edema up to the umbilicus. Positive sacral edema. EXTREMITIES: Reveal pitting edema to the thighs bilaterally. Chronic venous stasis changes seen distally. Several wounds are dressed. LABORATORY DATA: CBC notes hemoglobin 13.8, hematocrit 43.6, white count 7.5, platelet count 209,000. Electrolytes note a sodium of 134, potassium 3.7, chloride 98, bicarb 27, BUN 11, creatinine 1.04, glucose 133. Two troponins are undetectable at less than 0.015. CK is 22 with an MB fraction is 0.7. BNP is elevated at 4726. Influenza A and B are negative. EKG notes sinus rhythm with a right axis deviation, anterolateral T-wave inversions. There is inferior ST depression. Chest x-ray notes cardiomegaly and congestive changes. IMPRESSION: Mr. Berry was admitted in decompensated congestive failure. It appears to be mainly right sided with a small component of left-sided failure. I suspect his echocardiogram will be similar to that which was performed back in April showing normal left ventricular systolic function, but dilated and hypokinetic right ventricle suggesting cor pulmonale. PLAN: 1. Agree with intravenous diuresis. 2. Agree with continuation of metoprolol succinate. Would adjust his calcium channel vannesa if he shows left ventricular dysfunction. 3. Await echocardiogram. 4. Further recommendations depending on his clinical course.
--- NOTE | 2017-03-08 10:45 | NUR ---
Call to dr. bautista; patient requesting to advance from clear liquid; ok to advance diet per
[2017-03-08] MEDS ORDERED: SODIUM CHLORIDE 0.65% NA SOLN 45 ML (OCEAN) PRN (11:45)
--- NOTE | 2017-03-08 12:00 | NUR ---
Reassessment completed. Refer to EMR for assessment details. NSR on tele. Patient denies any cp or sob at this time. Denies any needs or complaints at this time. Diet advanced and tolerated well. Call green within reach. Will continue to monitor.
--- NOTE | 2017-03-08 12:51 | ECHOCARDIOGRAM REPORT ---
*NOTICE TO RECEIVING CONSTITUTION PARTY AGENCY This information is strictly Confidential and protected under [place] law. [place] law prohibits you from making any further disclosure of this information unless further disclosure is expressly permitted by the written consent of the person to whom it pertains or is authorized by law. A general authorization for the release of medical or other information is not sufficient for this purpose. Hospital accepts no responsibility if the information is made available to any other person, INCLUDING THE PATIENT. Interpretation Summary * Name: DANIELLE LOYD Study Date: 03/08/2017 10:22 AM BP: 130/77 mmHg * Patient Location: C.2T\S\S234\S\1 HR: 76 * : 1955 (M/d/yyyy) Gender: Male Height: 67 in * Age: 61 yrs Ethnicity: CA Weight: 269 lb * Ordering Physician: Marti Rojo * Referring Physician: Self, Referred * Performed By: Eleonora Rosenberg RDCS * * Reason For Study: CHF * BSA: 2.3 m2 * GAVE DEFINITY CONTRAST, HOWEVER I COULD NOT VISUALIZE IT * -- Conclusions -- * The study was technically limited. * Left ventricular systolic function is normal. * Diastolic dysfunction, Grade II, consistent with elevated left atrial pressure. * The right ventricle is moderate to severely dilated. * The right ventricular systolic function is normal as assessed by tricuspid annular plane systolic excursion (TAPSE) (normal >1.5 cm). * Borderline left atrial enlargement. * The right atrium is moderately dilated. * There is mild mitral annular calcification. * Right ventricular systolic pressure is elevated at >60mmHg. * Compared to study performed in 01/2013, the right ventricle appears more dilated. Procedure Details * A contrast injection of Definity was performed to improve assessment of LV function. * Contrast was injected into an intravenous site in the left arm. * One vial of Definity ultrasound contrast was diluted in normal saline to a total volume of 10 ml. A total of '3' ml of solution was administered during imaging. * Lot # [id number] of Definity utilized for procedure. * Expiration date 1 MAY 07. * The attending nurse who injected the contrast agent was ELIEZER JUAREZ RN. * The study was technically limited. Left Ventricle * The left ventricle is grossly normal size. * Left ventricular systolic function is normal. * Ejection Fraction = 55-60%. * Diastolic dysfunction, Grade II, consistent with elevated left atrial pressure. * Regional wall motion abnormalities cannot be excluded due to limited visualization. Right Ventricle * The right ventricle is moderate to severely dilated. * The right ventricular systolic function is normal as assessed by tricuspid annular plane systolic excursion (TAPSE) (normal >1.5 cm). Atria * Borderline left atrial enlargement. * The right atrium is moderately dilated. Mitral Valve * The mitral valve is not well visualized. * There is mild mitral annular calcification. Tricuspid Valve * The tricuspid valve is not well visualized. * There is mild tricuspid regurgitation. * Right ventricular systolic pressure is elevated at >60mmHg. Aortic Valve * The aortic valve is not well visualized. * No hemodynamically significant valvular aortic stenosis. Pericardium/Pleural * There is no pericardial effusion. MMode 2D Measurements and Calculations Ao root diam 3.1 cm Ao root area 7.7 cm\S\2 LA dimension 4.0 cm LA/Ao 1.3 Doppler Measurements and Calculations MV E max pillo 85.8 cm/sec MV A max pillo 76.4 cm/sec MV E/A 1.1 MV dec time 0.22 sec Ao V2 max 160.1 cm/sec Ao max PG 10.3 mmHg Ao max PG (full) 6.2 mmHg LV V1 max PG 4.0 mmHg LV V1 max 100.3 cm/sec TR max pillo 354.8 cm/sec
--- NOTE | 2017-03-08 13:34 | Hospitalist Progress Note ---
Hospitalist Progress Note Date of Service Mar 08, 2017. (Gauri Rivero PA-C) Subjective Pt evaluation today including: conversation w/ patient, physical exam, chart review, lab review, review of studies, conversation w/ real estate consultant (Dr. Coats - Pulmonary), review of inpatient medication list Patient seen and evaluated. No acute events overnight. Has been NSR with PACs/ PVC with some bigeminy with 5 beat run of PVCs overnight. Has been weaning for BiPAP/CPAP and currently on oxymask at 4 L which is baseline for him. Reports a poor diet mostly of pre-made microwaveable dinners and hasn't been compliant with neb treatments. Also states when he is out on errands he is only using his portable at 3 L. Reporting improvement in abdominal swelling and legs. Still has pitting edema into thighs. Respirations are not baseline but nearing this. Has a dry non-productive cough and poor airflow diffusely. Also complaining of nasal congestion and post-nasal drip. Constitutional: No fever, No chills Respiratory: + cough, + shortness of breath, No sputum, No wheezing Cardiovascular: No chest pain Abdomen: No pain, No nausea, No vomiting, No diarrhea, No constipation, No GI bleeding Musculoskeletal: + swelling (b/l lower extremities and abdomen), No calf pain Male : No dysuria Heme: No abnormal bleeding/bruising Skin: No rash (Gauri Rivero, JUICE-C) Medications Current Inpatient Medications Medications (Trade) Dose Ordered Sig/González Route Start Time Stop Time Status Last Admin Dose Admin Acetaminophen (Tylenol Tab) 650 mg Q4H PRN PO 03/07/17 19:30 04/06/17 19:29 Ondansetron HCl (Zofran Inj) 4 mg Q6H PRN IV 03/07/17 19:30 04/06/17 19:29 Polyethylene (Miralax Powder Packet) 17 gm DAILY PRN PO 03/07/17 19:30 04/06/17 19:29 Amlodipine Besylate (Norvasc Tab) 10 mg QAM PO 03/08/17 09:00 04/07/17 08:59 03/08/17 08:18 10 MG Aspirin (Ecotrin Tab) 81 mg DAILY PO 03/08/17 09:00 1/20/18 08:59 03/08/17 08:17 81 MG Cephalexin Monohydrate (Keflex Cap) 500 mg TID PO 03/07/17 21:00 03/17/17 20:59 Future Hold Salmeterol Xinafoate/ Fluticasone (Advair Diskus 250/50 Inh) 1 puff BID INH 03/07/17 21:00 04/06/17 20:59 03/08/17 08:19 1 PUFF Metoprolol Succinate (Toprol Xl Tab) 50 mg QAM PO 03/08/17 09:00 04/07/17 08:59 03/08/17 08:18 50 MG Multivitamins (Multivitamin Tab) 1 tab QAM PO 03/08/17 09:00 04/07/17 08:59 03/08/17 08:18 1 TAB Spironolactone (Aldactone Tab) 25 mg QAM PO 03/08/17 09:00 04/07/17 08:59 03/08/17 08:19 25 MG Tiotropium [place] (Spiriva Handihaler Inhaler) 1 puff QAM INH 03/08/17 09:00 04/07/17 08:59 03/08/17 08:21 1 PUFF Potassium Chloride (Klor-Con M10) 10 meq QAM PO 03/08/17 09:00 04/07/17 08:59 03/08/17 08:17 10 MEQ Furosemide 40 mg/ Syringe 4 ml @ 4 mls/min Q12H IV 03/08/17 08:00 04/07/17 07:59 03/08/17 08:27 4 MLS/MIN Albuterol/ Ipratropium (Duoneb) 3 ml QIDR INH 03/07/17 20:00 04/06/17 19:59 03/08/17 11:22 3 ML Insulin Aspart (novoLOG ASPART) SLIDING SCALE If C... ACHS SC 03/07/17 21:00 04/06/17 20:59 Enoxaparin Sodium (Lovenox Inj) 40 mg QAM SQ 03/08/17 09:00 04/07/17 08:59 03/08/17 08:20 40 MG Methylprednisolone Sodium Succinate 40 mg/Syringe 0.64 ml @ 1.5 mls/min BID IV 03/08/17 09:00 04/07/17 08:59 03/08/17 08:27 1.5 MLS/MIN Levofloxacin 500 mg/Prmx 100 ml @ 100 mls/hr Q24H IV 03/08/17 18:00 03/15/17 17:59 Glucose (Glucose 40% Gel) 15-30 GRAMS 15 GRAMS... UD PRN PO 03/07/17 21:15 04/06/17 21:14 Glucose (Glucose Chew Tab) 4-8 Tablets 4 Tabl... UD PRN PO 03/07/17 21:15 04/06/17 21:14 Dextrose (Dextrose 50% 50ML Syringe) 25-50ML OF 50% DW IV FOR... UD PRN IV 03/07/17 21:15 04/06/17 21:14 Glucagon (Glucagon Inj) 1 mg UD PRN SQ 03/07/17 21:15 04/06/17 21:14 Sodium Chloride ([place] Nasal [place]) 2 sprays Q1H PRN NA 03/08/17 11:45 04/07/17 11:44 UNV (Gauir Rivero, SUHA) Objective Vital Signs Date Time Temp Pulse Resp B/P (MAP) Pulse Ox O2 Delivery O2 Flow Rate FiO2 03/08/17 12:00 Oxymask 4.0 03/08/17 12:00 36.6 77 134/79 (97) 94 Oxymask 4.0 03/08/17 11:22 74 20 87 Mask 4.0 03/08/17 08:00 Oxymask 4.0 03/08/17 07:45 36.5 76 130/77 (94) 89 Oxymask 2.0 03/08/17 07:15 83 20 86 Mask 3.0 03/08/17 04:05 36.8 71 22 150/75 (100) 93 CPAP 50 03/08/17 04:00 93 Oxymask 4.0 03/08/17 00:01 93 BiPAP 50 03/07/17 23:38 36.6 67 21 127/70 (89) 93 CPAP 50 03/07/17 21:31 86 Mask 7.0 03/07/17 21:25 36.6 72 24 119/66 03/07/17 20:00 75 18 122/78 98 Room Air 03/07/17 19:26 36.6 73 16 125/81 94 03/07/17 19:25 77 14 94 03/07/17 19:21 77 17 90 03/07/17 19:16 75 18 92 03/07/17 19:11 78 14 94 03/07/17 19:06 73 17 94 03/07/17 19:01 75 16 125/81 95 03/07/17 18:56 74 15 96 03/07/17 18:51 76 23 93 03/07/17 18:46 73 16 94 03/07/17 18:41 74 19 93 03/07/17 18:36 74 19 93 03/07/17 18:31 67 15 120/71 92 03/07/17 18:26 66 13 93 03/07/17 18:21 67 13 94 03/07/17 18:16 68 15 94 03/07/17 18:11 66 17 92 03/07/17 18:06 67 22 94 03/07/17 18:01 66 127/72 94 BiPAP 03/07/17 18:00 65 14 93 03/07/17 17:46 100 BiPAP 03/07/17 17:34 57 100 60 03/07/17 17:33 53 13 100 BiPAP/CPAP 60 03/07/17 17:31 120/72 03/07/17 17:30 87 Nasal Cannula 7.0 03/07/17 17:30 62 14 97 BiPAP 03/07/17 17:20 36.6 65 20 127/78 86 Nasal Cannula 6.0 03/07/17 17:20 86 Nasal Cannula 03/07/17 17:13 68 03/07/17 17:06 127/79 (Gauri Rivero, PA-C) Physical Exam General Appearance: WD/WN, no apparent distress, + obese Eyes: sclerae normal ENT: hearing grossly normal Neck: supple, no JVD, trachea midline Respiratory/Chest: no respiratory distress, no accessory muscle use, + pertinent finding (poor airflow diffusely) Cardiovascular: regular rate, rhythm, no gallop, no murmur, + pertinent finding (distant heart tones) Abdomen: normal bowel sounds, non tender, soft Extremities: + pertinent finding (1+ pitting edema of thighs with 2+ of b/l lower extremities) Neurologic/Psychiatric: alert, oriented x 3 Skin: normal color (Gauri Rivero PA-C) Laboratory Results Last 24 Hours Test 03/07/17 17:30 03/07/17 17:31 03/07/17 17:36 03/07/17 17:45 White Blood Count 8.38 K/uL Red Blood Count 5.09 M/uL Hemoglobin 13.4 g/dL Hematocrit 43.3 % Mean Corpuscular Volume 85.1 fL Mean Corpuscular Hemoglobin 26.3 pg Mean Corpuscular Hemoglobin Concent 30.9 g/dl Platelet Count 218 K/uL Mean Platelet Volume 9.2 fL Neutrophils (%) (Auto) 77.8 % Lymphocytes (%) (Auto) 13.6 % Monocytes (%) (Auto) 6.4 % Eosinophils (%) (Auto) 1.0 % Basophils (%) (Auto) 1.0 % Neutrophils # (Auto) 6.52 K/uL Lymphocytes # (Auto) 1.14 K/uL Monocytes # (Auto) 0.54 K/uL Eosinophils # (Auto) 0.08 K/uL Basophils # (Auto) 0.08 K/uL RDW Standard Deviation 62.2 fL RDW Coefficient of Variation 20.1 % Immature Granulocyte % (Auto) 0.2 % Immature Granulocyte # (Auto) 0.02 K/uL Polychromasia 1+ Anisocytosis PRESENT Macrocytosis PRESENT Prothrombin Time 11.9 SECONDS Prothromb Time International Ratio 1.1 Sodium Level 134 mmol/L Potassium Level 3.8 mmol/L Chloride Level 99 mmol/L Carbon Dioxide Level 28 mmol/L Anion Gap 7.0 mmol/L 16.0 mmol/L Blood Urea Nitrogen 11 mg/dl Creatinine 1.09 mg/dl Estimated GFR () 84.5 Estimated GFR (Non- 72.9 BUN/Creatinine Ratio 10.0 Random Glucose 84 mg/dl Calcium Level 8.6 mg/dl Magnesium Level 2.0 mg/dl Total Bilirubin 1.0 mg/dl Aspartate Amino Transf (AST/SGOT) 12 U/L Alanine Aminotransferase (ALT/SGPT) 15 U/L Alkaline Phosphatase 98 U/L Total Creatine Kinase 22 U/L Creatine Kinase MB 0.7 ng/ml Creatine Kinase MB Ratio 3.2 Troponin I < 0.015 ng/ml Pro-B-Type Natriuretic Peptide 4726 pg/ml Total Protein 7.8 gm/dl Albumin 3.1 gm/dl Globulin 4.7 gm/dl Albumin/Globulin Ratio 0.7 Bedside Lactic Acid Venous 1.88 mmol/L Bedside Hemoglobin 15.0 g/dl Bedside Hematocrit 44 % Bedside Sodium 138 mEq/L Bedside Potassium 3.9 mEq/L Bedside Chloride 98 mEq/L Bedside Total CO2 30 mEq/l Bedside Blood Urea Nitrogen 10 mg/dl Bedside Creatinine 1.1 mg/dl Bedside Glucose (other) 92 mg/dl Bedside Ionized Calcium ([place]) 1.09 mmol/l Influenza Type A (RT-PCR) Neg for Influ A Influenza Type A Antigen Neg for Influ A Influenza Type B Antigen Neg for Influ B Influenza Type B (RT-PCR) Neg for Influ B Test 03/07/17 18:07 03/07/17 19:40 03/07/17 21:49 03/08/17 04:05 Arterial Blood pH 7.46 Arterial Blood Partial Pressure CO2 38 mmHg Arterial Blood Partial Pressure O2 70 mm/Hg Arterial Blood HCO3 27 mmol/L Arterial Blood Oxygen Saturation 93.9 % Arterial Blood Base Excess 2.9 mEq/L Arterial Blood Gas Delivery 40% Brian Test POS Urine Color YELLOW Urine Appearance CLEAR Urine pH 5.0 Urine Specific [place] 1.014 Urine Protein NEG Urine Glucose (UA) NEG Urine Ketones NEG Urine Occult Blood NEG Urine Nitrite NEG Urine Bilirubin NEG Urine Urobilinogen NEG Urine Leukocyte Esterase NEG Bedside Glucose 87 mg/dl White Blood Count 7.49 K/uL Red Blood Count 5.15 M/uL Hemoglobin 13.8 g/dL Hematocrit 43.6 % Mean Corpuscular Volume 84.7 fL Mean Corpuscular Hemoglobin 26.8 pg Mean Corpuscular Hemoglobin Concent 31.7 g/dl Platelet Count 209 K/uL Mean Platelet Volume 9.2 fL Neutrophils (%) (Auto) 94.9 % Lymphocytes (%) (Auto) 4.3 % Monocytes (%) (Auto) 0.4 % Eosinophils (%) (Auto) 0.0 % Basophils (%) (Auto) 0.1 % Neutrophils # (Auto) 7.11 K/uL Lymphocytes # (Auto) 0.32 K/uL Monocytes # (Auto) 0.03 K/uL Eosinophils # (Auto) 0.00 K/uL Basophils # (Auto) 0.01 K/uL RDW Standard Deviation 61.0 fL RDW Coefficient of Variation 19.8 % Immature Granulocyte % (Auto) 0.3 % Immature Granulocyte # (Auto) 0.02 K/uL Sodium Level 134 mmol/L Potassium Level 3.7 mmol/L Chloride Level 98 mmol/L Carbon Dioxide Level 27 mmol/L Anion Gap 9.0 mmol/L Blood Urea Nitrogen 11 mg/dl Creatinine 1.04 mg/dl Est Creatinine Clear Calc Drug Dose 93.5 ml/min Estimated GFR () 89.4 Estimated GFR (Non- 77.1 BUN/Creatinine Ratio 10.8 Random Glucose 133 mg/dl Calcium Level 8.6 mg/dl Magnesium Level 2.1 mg/dl Troponin I < 0.015 ng/ml (Gauri Rivero PA-C) Assessment and Plan Mr. Berry is a 61 year old male here for increasing sob and edema over the past couple of weeks. Acute on Chronic Respiratory Failure 2/2 Diastolic CHF/Cor Pulmonale and COPD Exacerbation: - Currently on 4 L which is baseline; qualifies for home CPAP/BiPAP and will see if we can get this arranged if patient willing to use - Will need sleep study as O/P for CPAP or an overnight pulse oximetry and ABG for BiPAP - Levaquin 500 mg daily - Methylprednisolone 40 mg IV BID and Duonebs - Pulmonology following - appreciate recommendations - discussed with Dr. Coats - continue to optimize chronic conditions and recommending home CPAP/BiPAP Acute on Chronic Diastolic CHF and Pulm HTN: - Echo with grade II diastolic dysfunction; EF 55-60% and elevated R systolic pressures - Lasix 40 mg IV BID - Cardiology following - appreciate recommendations - more recommendations pending echo and to continue current plan HTN: - Norvasc 10 mg daily (consideration for reduction due to edema) Lower Extremity Wounds: - Hold Keflex with Levaquin - continue dressing changes and consult wound DVT Prophylaxis: Lovenox Disposition: Hopeful discharge in 1-2 days Continued [facility] stay due to: multiple IV medications needed Discharge planning: home (Gauri Rivero PA-C) I performed a history and physical examination on the patient. I reviewed above note and agree with what is written. During my face to face interaction with the patient, I updated the patient on the plan and answered all of the patient's questions. My exam is below: General Appearance: obese, no apparent distress Neck: supple, no JVD, trachea midline Respiratory/Chest: rales in bilateral bases, accessory muscle use Cardiovascular: regular rate, rhythm, Abdomen: normal bowel sounds, non tender, edema on lower abdomen Extremities: pedal edema +2, no calf tenderness Neurologic/Psychiatric: alert, oriented x 3 Skin: normal color, warm/dry (Kel Vizcaino M.D.)
--- NOTE | 2017-03-08 13:51 | Pulmonary Consultation ---
History General Date of Service: Mar 08, 2017. Stated Complaint: Chf Exacerbation HPI The patient is a 61 year old male who presents to [facility] [address] with complaints of Chf Exacerbation. The patient's primary care provider is Anu Adams M.D.. Mr. Berry is a 61-year-old male who presents with several day history of progressive worsening shortness of breath and dyspnea on exertion. He has past medical history of hypertension, COPD, chronic hypoxic respiratory failure on long-term oxygen therapy at 3-4 L/m nasal cannula. He was visiting with Dr. Darden, financial controller and was found to have increased hypoxia despite oxygenation associated with bilateral lower extremity edema and anasarca. He was subsequently transferred to the hospital for further evaluation. Over the last several weeks, he has noticed increased lower extremity edema as well as abdominal swelling. He does admit to increased weight gain over the last several days. He was seen by a computer scientist however despite this had no increased diuresis. Per patient, states that he has not been able to comply with the healthy heart diet. Relatively sedentary lifestyle. His diet consists of mostly high sodium foods that come prepackaged for convenience. Patient states that his exercise tolerance is a few feet around his home, however yesterday he could only walk a few feet without significant dyspnea. He denies any fevers, chills, chest pain. He does have occasional chronic cough with some yellowish productive sputum. He denies any paroxysmal nocturnal dyspnea or orthopnea. He is compliant with his respiratory medications of Advair 250/50 1 puff twice a day, Spiriva 1-2 puffs every morning, albuterol 2 puffs every 4 hours. Of note, patient recently found have villous adenoma of colon and is being worked up by GI. He denies any nausea, vomiting, diarrhea or constipation. Most recent sound culture 03/02/2017 grew pansensitive staph aureus. Vital signs upon arrival to the ER showed a temperature 36.6, pulse 65, respiratory rate 20, blood pressure 127/78, saturating 86% on 6 L nasal cannula. On initial evaluation he was found to be wheezing throughout. He was subsequently placed on BiPAP. Initial ABG was 7.46/38/70/27/93.9% on BiPAP 10/ 5 and 60% FiO2. Laboratory data was significant for sodium of 134, BUN 11, and creatinine 1.09. LFTs were within normal limits. Troponin was less than 0.015 and BNP 4726. Influenza a and B PCR was negative and Bordetella pertussis PCR still pending. Blood cultures were sent and are pending. Chest x-ray showed cardiomegaly with pulmonary vascular congestion and bilateral patchy opacities consistent with pulmonary edema. An abdominal ultrasound was also done which showed minimal ascites. In the ER, he received albuterol 12 mL , Solu-Medrol 125 mg, mag sulfate 1 g, Lasix 40 mg, vancomycin 1 g, Levaquin 750 mg, and cefepime 2 g. At the time of my evaluation this morning, patient on oxygen mask. States that he tolerated BiPAP overnight, but states that he is feeling much better since receiving Lasix. He states abdominal edema has decreased significantly and he feels less short of breath at rest. His most recent TTE performed on 04/24/2016,showed significant RV enlargement with moderately reduced RV systolic function. The septal motion was consistent with increased RV pressure and overload. The estimated PASP was 65 mmHg. The qualitative LV ejection fraction was 60-65%. His last PFT one 08/29/2106 was consistent with mild obstructive lung disease with restriction and decreased DLCO. Polysomnography from 04/09/2016, shows mild apnea with an AHI of 5 with nocturnal hypoxemia. Historian: patient, other (EMR) Onset: yesterday, last week Severity: moderate Complaint Status: worsened, persistent Review of Systems Constitutional: reports: malaise, weakness, weight gain Eyes: reports: as stated in HPI ENT: reports: as stated in HPI, epistaxis, sore throat Cardiovascular: reports: as stated in HPI Respiratory: reports: cough, shortness of breath, LEY Gastrointestinal: reports: as stated in HPI Genitourinary - Male: reports: as stated in HPI Musculoskeletal: reports: as stated in HPI Integumentary: reports: as stated in HPI Neurologic: reports: as stated in HPI Psychiatric: reports: as stated in HPI Endocrine: as stated in HPI Hematologic / Lymphatic: as stated in HPI Allergic / Immunologic: as stated in HPI All Other Symptoms All Other Systems: Reviewed and Negative Past Medical History Past Medical History: Active Problems 1. Cardiac failure (I50.9) 2. Cellulitis (L03.90) 3. Chronic nasopharyngitis (J31.1) 4. Chronic obstructive pulmonary disease (J44.9) 5. Chronic respiratory failure (J96.10) 6. Essential hypertension (I10) 7. Gout (M10.9) 8. Hypoxemia (R09.02) 9. Leg pain (M79.606) 10. Mass of colon (K63.9) 11. Mediastinal lymphadenopathy (R59.0) 12. Metabolic disorder (E88.9) 13. Nicotine dependence 14. Obesity (E66.9) 15. PAD (peripheral artery disease) (I73.9) 16. Personal history of colonic polyps (Z86.010) 17. Primary localized osteoarthrosis of the hip (M16.10) 18. Pulmonary infiltrates (R91.8) 19. Secondary polycythemia (D75.1) 20. Sleep disturbances (G47.9) 21. Water retention (R60.9) Past Medical History 1. History of Hepatitis C virus (B19.20) 2. History of Mediastinal lymphadenopathy (R59.0) 3. History of Obstructive chronic bronchitis with exacerbation (J44.1) Past Surgical History: Surgical History 1. History of Total Hip Replacement 2. History of Total Hip Replacement Right Family History Family History 1. Family history of Cerebral Artery Occlusion With Cerebral Infarction 2. Family history of Diabetes Mellitus 3. Family history of hypertension (Z82.49) 4. Family history of myocardial infarction (Z82.49) Father 5. Family history of Alcohol abuse 6. Family history of Lung Cancer Sister 7. Family history of Asthma 8. Family history of Cancer 9. Family history of Chronic Obstructive Pulmonary Disease 10. Family history of diabetes mellitus (Z83.3) 11. Family history of hypertension (Z82.49) Brother 12. Family history of diabetes mellitus (Z83.3) 13. Family history of hypertension (Z82.49) Family History 14. Denied: Family history of malignant neoplasm of breast 15. Denied: Family history of malignant neoplasm of prostate 16. Denied: Family history of Ovarian cancer Social History Social History Problems Consumes alcohol weekly (Z78.9) Current smoker (F17.200) Dental care, regularly Drug Use Exercise limited by physical condition History of drug use (Z87.898) Living situation Never used moist powdered tobacco (Z78.9) Occupation Retired Single Smokes 1/2 pack per day (F17.210) Denied: History of Special needs due to hearing impairment Denied: History of Special needs due to visual impairment Hx Tobacco Use In Past Year?: Yes Smoking Status: Former Smoker Marital status: single Housing status: lives alone Occupational Status: unemployed (disability), disabled Immunizations History of Influenza Vaccine: Yes Influenza Vaccine Date: Dec 31, 2012 History of Tetanus Vaccine?: unsure History of Pneumococcal: No History of Hepatitis B Vaccine: Yes Hepatitis Immunization Date: Jan 28, 2003 Allergies Coded Allergies: No Known Allergies (Unverified , 03/07/17) Current Medications Reported Home Medications Medications Dose Route/Sig Max Daily Dose Days Date Category Dose Instructions Aspirin Ec (Aspirin) 81 Mg Tab 81 Mg PO DAILY 03/07/17 Reported Keflex (Cephalexin Monohydrate) 500 Mg Cap 500 Mg PO TID 03/05/17 Reported Lasix (Furosemide) 20 Mg Tab 20 Mg PO BID 03/02/17 Reported TAKE 20MG TABLET WITH 40MG TABLET FOR A TOTAL DOSE OF 60MG TWICE A DAY Toprol-Xl (Metoprolol Succinate) 50 Mg Tabcr 50 Mg PO QAM 01/12/17 Reported Spiriva [place] (Tiotropium [place]) 30 Puff/540 Mcg Aerp 1 Cap INH QAM 01/12/17 Reported Proventil Hfa (Albuterol Sulfate) 108 Mcg/Act Aer 2 Puff INH Q4H PRN 01/12/17 Reported Multivitamin (Multivitamins) Tab 1 Tab PO QAM 01/12/17 Reported Oxygen Gas 4 Liters NA CONTINOUS 01/12/17 Reported Glucophage Ext Rel (Metformin HCl) 500 Mg Tab 500 Mg PO QAM 01/12/17 Reported K-Tabs (Potassium Chloride) 10 Meq Tab 10 Meq PO QAM 01/12/17 Reported Lasix (Furosemide) 40 Mg Tab 40 Mg PO BID 01/12/17 Reported TAKE 40MG TABLET WITH A 20MG TABLET FOR A TOTAL DOSE OF 60MG TWICE A DAY Spironolactone 25 Mg Tab 25 Mg PO QAM 04/08/14 Reported Advair Diskus 250-50 Mcg/Dose (Fluticasone Prop/Salmeterol) 14 Puff/1 Inhaler Aerp 1 Puff INH BID 10/02/13 Reported Norvasc (Amlodipine Besylate) 10 Mg Tab 10 Mg PO QAM 01/31/13 Reported Physical Physical Exam Vital Signs: Date Time Temp Pulse Resp B/P (MAP) Pulse Ox O2 Delivery O2 Flow Rate FiO2 03/08/17 07:45 36.5 76 130/77 (94) 89 Oxymask 2.0 03/08/17 07:15 83 20 86 Mask 3.0 03/08/17 04:05 36.8 71 22 150/75 (100) 93 CPAP 50 03/08/17 04:00 93 Oxymask 4.0 03/08/17 00:01 93 BiPAP 50 03/07/17 23:38 36.6 67 21 127/70 (89) 93 CPAP 50 03/07/17 21:31 86 Mask 7.0 03/07/17 21:25 36.6 72 24 119/66 03/07/17 20:00 75 18 122/78 98 Room Air 03/07/17 19:26 36.6 73 16 125/81 94 03/07/17 19:25 77 14 94 03/07/17 19:21 77 17 90 03/07/17 19:16 75 18 92 03/07/17 19:11 78 14 94 03/07/17 19:06 73 17 94 03/07/17 19:01 75 16 125/81 95 03/07/17 18:56 74 15 96 03/07/17 18:51 76 23 93 03/07/17 18:46 73 16 94 03/07/17 18:41 74 19 93 03/07/17 18:36 74 19 93 03/07/17 18:31 67 15 120/71 92 03/07/17 18:26 66 13 93 03/07/17 18:21 67 13 94 03/07/17 18:16 68 15 94 03/07/17 18:11 66 17 92 03/07/17 18:06 67 22 94 03/07/17 18:01 66 127/72 94 BiPAP 03/07/17 18:00 65 14 93 03/07/17 17:46 100 BiPAP 03/07/17 17:34 57 100 60 03/07/17 17:33 53 13 100 BiPAP/CPAP 60 03/07/17 17:31 120/72 03/07/17 17:30 87 Nasal Cannula 7.0 03/07/17 17:30 62 14 97 BiPAP 03/07/17 17:20 36.6 65 20 127/78 86 Nasal Cannula 6.0 03/07/17 17:20 86 Nasal Cannula 03/07/17 17:13 68 03/07/17 17:06 127/79 General Appearance: NO APPARENT DISTRESS, uncomfortable, obese Head: NORMOCEPHALIC, ATRAUMATIC Eyes: PERRLA, NO DISCHARGE, EOMI ENT: NORMAL MOUTH EXAM, NORMAL THROAT EXAM Neck: NORMAL RANGE OF MOTION, NO TENDERNESS, TRACHEA MIDLINE, NO STRIDOR, SUPPLE Respiratory: other (decreased breath sounds bilaterally) Cardiovasular: REGULAR RATE/RHYTHM, NORMAL S1S2 Abdomen: NON TENDER, NORMAL BOWEL SOUNDS, other (obese, distended abdomen) Back: NORMAL INSPECTION, NO MIDLINE TENDERNESS, NO CVA TENDERNESS, NO MUSCLE SPASM Upper Extremities: NO EDEMA, NO DEFORMITY, NORMAL ROM Lower Extremities: other (bilateral lower +3-4 extremity pitting edema with dermatitis consistent with chronic venous changes. +bilateral wound dressings in place.) Edema: Bilateral LE (3+) Neuro: ALERT, ORIENTED x 3, NORMAL MOTOR EXAM, NORMAL MEMORY Psychiatric: NORMAL AFFECT, NO SUICIDAL IDEATION, CONTRACTS FOR SAFETY Diagnostics Labs Results Past 24 Hours Test 03/07/17 17:30 03/07/17 17:31 03/07/17 17:36 03/07/17 17:45 Range/Units White Blood Count 8.38 4.8-10.8 K/uL Red Blood Count 5.09 4.7-6.1 M/uL Hemoglobin 13.4 14.0-18.0 g/dL Hematocrit 43.3 42-52 % Mean Corpuscular Volume 85.1 80-100 fL Mean Corpuscular Hemoglobin 26.3 25-34 pg Mean Corpuscular Hemoglobin Concent 30.9 32-36 g/dl Platelet Count 218 130-400 K/uL Mean Platelet Volume 9.2 7.4-10.4 fL Neutrophils (%) (Auto) 77.8 % Lymphocytes (%) (Auto) 13.6 % Monocytes (%) (Auto) 6.4 % Eosinophils (%) (Auto) 1.0 % Basophils (%) (Auto) 1.0 % Neutrophils # (Auto) 6.52 1.4-6.5 K/uL Lymphocytes # (Auto) 1.14 1.2-3.4 K/uL Monocytes # (Auto) 0.54 0.11-0.59 K/uL Eosinophils # (Auto) 0.08 0-0.5 K/uL Basophils # (Auto) 0.08 0-0.2 K/uL RDW Standard Deviation 62.2 36.4-46.3 fL RDW Coefficient of Variation 20.1 11.5-14.5 % Immature Granulocyte % (Auto) 0.2 % Immature Granulocyte # (Auto) 0.02 0.00-0.02 K/uL Polychromasia 1+ Anisocytosis PRESENT Macrocytosis PRESENT Prothrombin Time 11.9 9.0-12.0 SECONDS Prothromb Time International Ratio 1.1 0.9-1.1 Sodium Level 134 136-145 mmol/L Potassium Level 3.8 3.5-5.1 mmol/L Chloride Level 99 98-107 mmol/L Carbon Dioxide Level 28 21-32 mmol/L Anion Gap 7.0 16.0 16-25 mmol/L Blood Urea Nitrogen 11 7-18 mg/dl Creatinine 1.09 0.60-1.40 mg/dl Estimated GFR () 84.5 Estimated GFR (Non- 72.9 BUN/Creatinine Ratio 10.0 10-20 Random Glucose 84 70-99 mg/dl Calcium Level 8.6 8.5-10.1 mg/dl Magnesium Level 2.0 1.8-2.4 mg/dl Total Bilirubin 1.0 0.2-1 mg/dl Aspartate Amino Transf (AST/SGOT) 12 15-37 U/L Alanine Aminotransferase (ALT/SGPT) 15 12-78 U/L Alkaline Phosphatase 98 45-117 U/L Total Creatine Kinase 22 39-308 U/L Creatine Kinase MB 0.7 0.5-3.6 ng/ml Creatine Kinase MB Ratio 3.2 0-3.0 Troponin I < 0.015 0-0.045 ng/ml Pro-B-Type Natriuretic Peptide 4726 0-900 pg/ml Total Protein 7.8 6.4-8.2 gm/dl Albumin 3.1 3.4-5.0 gm/dl Globulin 4.7 2.5-4.0 gm/dl Albumin/Globulin Ratio 0.7 0.9-2 Bedside Lactic Acid Venous 1.88 0.90-1.70 mmol/L Bedside Hemoglobin 15.0 14.0-18.0 g/dl Bedside Hematocrit 44 42-52 % Bedside Sodium 138 135-144 mEq/L Bedside Potassium 3.9 3.3-5.0 mEq/L Bedside Chloride 98 101-112 mEq/L Bedside Total CO2 30 24-31 mEq/l Bedside Blood Urea Nitrogen 10 7-18 mg/dl Bedside Creatinine 1.1 0.6-1.3 mg/dl Bedside Glucose (other) 92 70-99 mg/dl Bedside Ionized Calcium ([place]gar) 1.09 1.12-1.32 mmol/l Influenza Type A (RT-PCR) Neg for Influ A NEG Influenza Type A Antigen Neg for Influ A NEG Influenza Type B Antigen Neg for Influ B NEG Influenza Type B (RT-PCR) Neg for Influ B NEG Test 03/07/17 18:07 03/07/17 19:40 03/07/17 21:49 03/08/17 04:05 Range/Units Arterial Blood pH 7.46 7.35-7.45 Arterial Blood Partial Pressure CO2 38 35-46 mmHg Arterial Blood Partial Pressure O2 70 80-95 mm/Hg Arterial Blood HCO3 27 19-24 mmol/L Arterial Blood Oxygen Saturation 93.9 90-95 % Arterial Blood Base Excess 2.9 -9-1.8 mEq/L Arterial Blood Gas Delivery 40% Brian Test POS POS Urine Color YELLOW Urine Appearance CLEAR CLEAR Urine pH 5.0 4.5-7.5 Urine Specific [place] 1.014 1.000-1.030 Urine Protein NEG NEG Urine Glucose (UA) NEG NEG Urine Ketones NEG NEG Urine Occult Blood NEG NEG Urine Nitrite NEG NEG Urine Bilirubin NEG NEG Urine Urobilinogen NEG NEG Urine Leukocyte Esterase NEG NEG Bedside Glucose 87 70-99 mg/dl White Blood Count 7.49 4.8-10.8 K/uL Red Blood Count 5.15 4.7-6.1 M/uL Hemoglobin 13.8 14.0-18.0 g/dL Hematocrit 43.6 42-52 % Mean Corpuscular Volume 84.7 80-100 fL Mean Corpuscular Hemoglobin 26.8 25-34 pg Mean Corpuscular Hemoglobin Concent 31.7 32-36 g/dl Platelet Count 209 130-400 K/uL Mean Platelet Volume 9.2 7.4-10.4 fL Neutrophils (%) (Auto) 94.9 % Lymphocytes (%) (Auto) 4.3 % Monocytes (%) (Auto) 0.4 % Eosinophils (%) (Auto) 0.0 % Basophils (%) (Auto) 0.1 % Neutrophils # (Auto) 7.11 1.4-6.5 K/uL Lymphocytes # (Auto) 0.32 1.2-3.4 K/uL Monocytes # (Auto) 0.03 0.11-0.59 K/uL Eosinophils # (Auto) 0.00 0-0.5 K/uL Basophils # (Auto) 0.01 0-0.2 K/uL RDW Standard Deviation 61.0 36.4-46.3 fL RDW Coefficient of Variation 19.8 11.5-14.5 % Immature Granulocyte % (Auto) 0.3 % Immature Granulocyte # (Auto) 0.02 0.00-0.02 K/uL Sodium Level 134 136-145 mmol/L Potassium Level 3.7 3.5-5.1 mmol/L Chloride Level 98 98-107 mmol/L Carbon Dioxide Level 27 21-32 mmol/L Anion Gap 9.0 3-11 mmol/L Blood Urea Nitrogen 11 7-18 mg/dl Creatinine 1.04 0.60-1.40 mg/dl Est Creatinine Clear Calc Drug Dose 93.5 ml/min Estimated GFR () 89.4 Estimated GFR (Non- 77.1 BUN/Creatinine Ratio 10.8 10-20 Random Glucose 133 70-99 mg/dl Calcium Level 8.6 8.5-10.1 mg/dl Magnesium Level 2.1 1.8-2.4 mg/dl Troponin I < 0.015 0-0.045 ng/ml Microbiology Results 03/07/17 Blood Culture, Received Pending 03/07/17 Blood Culture, Received Pending Diagnostic Radiology CHEST ONE VIEW PORTABLE 03/07/2017 CLINICAL HISTORY: 61 years-old Male presenting with Pt c/o hypoxia. TECHNIQUE: Portable upright AP view of the chest was obtained. COMPARISON: 08/26/2015. FINDINGS: Atherosclerosis of aortic arch. Cardiac silhouette remains enlarged. Prominence of pulmonary vasculature unchanged. Interval increase in patchy diffuse bilateral opacities with a mid to basilar predominance. No large pleural effusion or pneumothorax. Osseous structures normal. Upper abdomen normal. IMPRESSION: 1. Cardiomegaly in the setting of pulmonary vascular prominence and mid to basilar bilateral patchy opacities concerning for pulmonary edema. Differential considerations include multifocal pneumonia or less likely aspiration. LIMITED ABDOMINAL ULTRASOUND FOR ASCITES DETERMINATION 03/07/2017 CLINICAL HISTORY: Ascites. History of cirrhosis. COMPARISON STUDY: No previous studies for comparison. FINDINGS: There is relatively low volume 4 quadrant ascites. IMPRESSION: Relatively low volume 4 quadrant ascites. Impression Assessment and Plan Morbid obesity Acute on chronic hypoxic respiratory failure Cor pulmonale Mild COPD with bronchitis Elevated right heart pressures with cor pulmonale Possible obesity hyperventilation syndrome Obstructive sleep apnea Cirrhosis Epitaxsis Mr. Berry presents with progressive dyspnea on exertion and lower extremity edema likely secondary to cor pulmonale, now in acute on chronic hypoxic respiratory failure. He has mild/moderate COPD with airtrapping as well as components of restrictive lung disease secondary to obesity. He likely has underlying obesity hypoventilation syndrome and has a previous diagnosis of TERRELL. His last outpatient in April 2016,shows elevated right heart pressures with sign of right heart failure. Recommendations Continue with supplemental oxygenation to maintain SaO2 between 88-92%. Be careful not over oxygenate him. This may decrease his respiratory drive. Be judicious with sedatives and narcotics as well as this can precipitate hypercapnia. He will likely qualify for BIPAP upon hospital discharge. He has chronic cough. I think he is less likely infectious at this point. The wheezing that he initially presented with was likely a "cardiac" wheeze and has improved. I do not feel he is in COPD exacerbation. Continue with Albuterol/ipratropium nebs, Spiriva, and Advair. Continue with nasal saline for nose bleeds. Consider discontinuing antibiotics and steroids as this can worsen fluid retention. Send procalcitonin and sputum culture. Continue to diurese as his kidney functions tolerates I do agree with repeat TTE to assess EF and right function. Continue the DVT ppx. I appreciate the consult. Please contact me if you have further questions or concerns.
--- NOTE | 2017-03-08 16:26 | NUR ---
CWOCN: RECEIVED REQUEST FOR CONSULT, RE: LOWER EXTREMITY WOUNDS. PATIENT IS FOLLOWED BY [facility]. PATIENT STATES DRESSINGS NOT CHANGED SINCE ADMISSION. DRESSINGS WET FROM DRAINAGE. LEGS WASHED. AQUACEL AG, GAUZE AND KERLIX APPLIED.
--- NOTE | 2017-03-08 16:48 | NUR ---
Case Management: Consulted for discharge planning. Met with pt who reports living alone in a 3rd floor apartment with elevator access. Pt states he uses a cane for ambulation. Pt is independent with ADLs and driving. Pt is considering hiring a clock assembler because he gets short of breath completing house work. Pt wears 4L O2 continuous supplied by [facility]. Pt has a shower chair. Pt had a sleep study this year to evaluate for sleep apnea and states it showed he did not have sleep apnea and he did not qualify for CPAP. Spoke with Gauri BORDEN, regarding recommendation for BiPAP. We discuss needs for qualification such as desat for 5 minutes during overnight pulse ox on home oxygen requirement and ABG pCO2 of 52 or greater. Pt's pCO2 on admission was 38. Pt states he can't sleep with things on his face like the BiPAP but if they say he needs it then he will wear it. Pt denies additional needs at this time. Case Management to follow.
--- NOTE | 2017-03-08 17:26 | NUR ---
RD At Risk screen completed, see linked note. Level of care III. Addendum: 03/08/17 at [address] Amended: Links added.
[2017-03-08] MEDS ORDERED: LEVOFLOXACIN / D5W 500 MG in PREMIXED IN D5W 100 ML IV SCH (18:00)
--- NOTE | 2017-03-08 20:00 | NUR ---
A: Patient resting in bed. Denies any pain or SOB. NSR on the monitor. Call green is in reach.
[2017-03-09] VITALS (14 sets, daily range): BP systolic 109–124; BP diastolic 67–72; PULSE 71–87; TEMP 36.4–36.6; O2SAT 79–94
--- NOTE | 2017-03-09 01:04 | NUR ---
Noc pulse ox canceled per verbal order from hospitalist. SpO2 82% on 4L nasal canula. Placed back on bipap 10/5 50% FiO2, SpO2 up to 94%.
--- NOTE | 2017-03-09 04:21 | NUR ---
A: Assessment completed- see EMR for full detail; VS SPO2 remains 88 % on pt. tolerated bi pap for most of night, currently 4 LPM NC, pt Jose D SOB, Resp regular Luis nonlabored- see EMR; AA&Ox4, Appropriate; NSR, noted on monitor; Denies CP; pt. denies pain at this time; Pt. currently resting in bed; no needs apparent or verbalized at this time; IV site intact ; call-green & items of necessity in reach, will continue to monitor.
[2017-03-09 05:49] LABS: HEMATOCRIT 42.4 % (42-52); HEMOGLOBIN 13.3 g/dL (14.0-18.0); IG# 0.02 K/uL (0.00-0.02); LYMPH ABS # 0.52 K/uL (1.2-3.4); MEAN CELL VOLUME 84.1 fL (80-100); MEAN CORPUSCULAR HEMOGLOBIN 26.4 pg (25-34); MEAN CORPUSCULAR HGB CONC 31.4 g/dl (32-36); MEAN PLATELET VOLUME 9.5 fL (7.4-10.4); MONO % 5.6 %; MONO ABS # 0.48 K/uL (0.11-0.59); NEUT % 88.2 %; NEUT ABS # 7.61 K/uL (1.4-6.5); PLATELET COUNT 211 K/uL (130-400); WHITE BLOOD COUNT 8.63 K/uL (4.8-10.8)
[2017-03-09 06:21] LABS: CALCIUM 8.8 mg/dl (8.5-10.1); CREATININE 1.35 mg/dl (0.60-1.40); POTASSIUM 4.4 mmol/L (3.5-5.1)
[2017-03-09] MEDS: ALBUT/IPRATROP 3MG/0.5MG NEB 3 ML VIAL INH SCH ×4 (07:04→19:06)
--- NOTE | 2017-03-09 08:00 | NUR ---
Patient assessed see EMR for more details. call green in reach safety reviewed needs addressed. SR on monitor. Patient had significant coughing spell, during coughing spell pt checked own pulse ox and was 81%. Encouraged patient to recheck once he had settled down. Patient stated "I'll do it, later could you please leave I have to pee!"
[2017-03-09] MEDS: INSULIN ASPART 100 UNITS/ML 3 ML PEN SC SCH ×4 (09:12→21:38)
[2017-03-09] MEDS: AMLODIPINE BESYLATE 5 MG TAB PO SCH (09:13)
[2017-03-09] MEDS: POTASSIUM CHLORIDE 10 MEQ TABCR PO SCH (09:13)
[2017-03-09] MEDS: FLUTICASONE/SALMETEROL 250/50 (ADVAIR) 14 PUFF/1 INHALER INH SCH ×2 (09:13→21:38)
[2017-03-09] MEDS: FUROSEMIDE INJ 40 MG in SYRINGE 0 ML IV SCH ×2 (09:13→20:02)
[2017-03-09] MEDS: METOPROLOL SUCC 50MG EXT REL TAB PO SCH (09:13)
[2017-03-09] MEDS: ASPIRIN 81 MG ECTAB PO SCH (09:13)
[2017-03-09] MEDS: MULTIVITAMIN TAB PO SCH (09:13)
[2017-03-09] MEDS: SPIRONOLACTONE 25 MG TAB PO SCH (09:14)
[2017-03-09] MEDS: TIOTROPIUM BROMIDE 5 PUFF/90 MCG INH INH SCH (09:14)
[2017-03-09] MEDS: ENOXAPARIN 40 MG/0.4 ML SYR SQ SCH (09:14)
--- NOTE | 2017-03-09 09:24 | CARDIOLOGY PROGRESS NOTE ---
DATE: 03/09/2017 SUBJECTIVE: Mr. Berry is resting comfortably in bed without complaints of chest pain. Dyspnea has improved. OBJECTIVE: VITAL SIGNS: Blood pressure is 117/70 with a regular pulse of 70. Respiratory rate is 20. The patient is afebrile at 36.4 degrees Celsius. Saturation is 87% on 4 liters nasal cannula. NECK: Supple with full carotid upstrokes. Jugular venous pressure is elevated to the angle of the jaw at 90 degrees. CARDIOVASCULAR: Reveals a regular rhythm with distant heart sounds. No obvious murmur or S3. LUNGS: Note a few rales at the base but no rhonchi or wheezes. ABDOMEN: Obese. EXTREMITIES: Note pitting edema to the upper thigh bilaterally. Chronic venous stasis changes seen distally. Dressings are dry. DATA: CBC notes hemoglobin 13.3, hematocrit 42.4, white count 8.6, platelet count 211,000. Electrolytes note sodium of 134, potassium 4.4, chloride 97, bicarbonate 30, BUN 23, creatinine 1.35, glucose 122. case monitor notes sinus rhythm with an occasional PAC. Echocardiogram performed yesterday notes normal left ventricular systolic function with evidence of diastolic dysfunction. The right ventricle is dilated. Right ventricular systolic pressure is estimated at greater than 60 mmHg. There is mild tricuspid regurgitation. IMPRESSION AND PLAN: 1. Decompensated congestive heart failure -- mainly right sided. Has improved with aggressive intravenous diuresis. Weight is down 3.0 kilograms from admission. BUN and creatinine slightly increased over baseline. 2. Presumed cor pulmonale -- secondary to chronic respiratory failure from his severe chronic obstructive pulmonary disease/emphysema. 3. Chronic respiratory failure -- on continuous flow oxygen at home. 4. Pulmonary hypertension -- echocardiogram suggests an elevated right ventricular systolic pressure of greater than 60 mmHg. 5. Peripheral vascular disease. 6. Cirrhosis. 7. Diabetes mellitus. 8. Villous adenoma -- discovered at the time of colonoscopy in 01/2017. Surgery has been planned but not yet scheduled.
--- NOTE | 2017-03-09 11:53 | Pulmonology Progress Note ---
Pulmonary Progress Note Date of Service Mar 09, 2017. Attending Dr. Coats Subjective Patient seen and examined. Nocturnal oximetry was attempted overnight, but discontinued due to profound hypoxia. He was placed on BIPAP overnight and tolerated it well. He still has intermittent cough with mild phlegm. He denies any chest pain or shortness of breath. Objective VS reviewed. Gen: AAOx3, NAD, respiratory distress. Speaking in full sentences, no respiratory distress. CVS: S1, S2, RRR Lungs: Decreased breath sound bilaterally, no crackles, no wheezing Abd: soft/NT/ND/BS+ Ext: trace edema, no cyanosis, no clubbing Labs reviewed. Imaging reviewed. Medications reviewed. Sputum cultures--normal sugey Assessment & Plan Morbid obesity Acute on chronic hypoxic respiratory failure Mild COPD with bronchitis Elevated right heart pressures with cor pulmonale Diastolic dysfunction Possible obesity hyperventilation syndrome Obstructive sleep apnea Cirrhosis Epistasis Patient has persistent hypoxia despite oxygenation. He had episode of profound hypoxemia during sleep.He likely has underlying obesity hypoventilation syndrome and has a previous diagnosis of TERRELL. TTE done yesterday is consistent with grade II diastolic dysfunction and pulmonary hypertension with estimated pressures > 60 mmHg. LV systolic function is normal with EF 55-60%. He did not diurese well over the last 24 hours. Compliance with intake remains a problem. Recommendations Continue with supplemental oxygenation to maintain SaO2 between 88-92%. Be careful not over oxygenate him. This may decrease his respiratory drive. Be judicious with sedatives and narcotics as well as this can precipitate hypercapnia. He will likely qualify for BIPAP upon hospital discharge due to pulmonary hypertension. Continue with Albuterol/ipratropium nebs, Spiriva, and Advair. Continue with nasal saline for nose bleeds. Continue to diurese as his kidney functions tolerates Continue the DVT ppx. Data Medications: Current Inpatient Medications Medications (Trade) Dose Ordered Sig/González Route Start Time Stop Time Status Last Admin Dose Admin Acetaminophen (Tylenol Tab) 650 mg Q4H PRN PO 03/07/17 19:30 04/06/17 19:29 Ondansetron HCl (Zofran Inj) 4 mg Q6H PRN IV 03/07/17 19:30 04/06/17 19:29 Polyethylene (Miralax Powder Packet) 17 gm DAILY PRN PO 03/07/17 19:30 04/06/17 19:29 Amlodipine Besylate (Norvasc Tab) 10 mg QAM PO 03/08/17 09:00 04/07/17 08:59 03/09/17 09:13 10 MG Aspirin (Ecotrin Tab) 81 mg DAILY PO 03/08/17 09:00 04/07/17 08:59 03/09/17 09:13 81 MG Cephalexin Monohydrate (Keflex Cap) 500 mg TID PO 03/07/17 21:00 03/17/17 20:59 Future Hold Salmeterol Xinafoate/ Fluticasone (Advair Diskus 250/50 Inh) 1 puff BID INH 03/07/17 21:00 04/06/17 20:59 03/09/17 09:13 1 PUFF Metoprolol Succinate (Toprol Xl Tab) 50 mg QAM PO 03/08/17 09:00 04/07/17 08:59 03/09/17 09:13 50 MG Multivitamins (Multivitamin Tab) 1 tab QAM PO 03/08/17 09:00 04/07/17 08:59 03/09/17 09:13 1 TAB Spironolactone (Aldactone Tab) 25 mg QAM PO 03/08/17 09:00 04/07/17 08:59 03/09/17 09:14 25 MG Tiotropium [place] (Spiriva Handihaler Inhaler) 1 puff QAM INH 03/08/17 09:00 04/07/17 08:59 03/09/17 09:14 1 PUFF Potassium Chloride (Klor-Con M10) 10 meq QAM PO 03/08/17 09:00 04/07/17 08:59 03/09/17 09:13 10 MEQ Furosemide 40 mg/ Syringe 4 ml @ 4 mls/min Q12H IV 03/08/17 08:00 04/07/17 07:59 03/09/17 09:13 4 MLS/MIN Albuterol/ Ipratropium (Duoneb) 3 ml QIDR INH 03/07/17 20:00 04/06/17 19:59 03/09/17 11:12 3 ML Insulin Aspart (novoLOG ASPART) SLIDING SCALE If C... ACHS SC 03/07/17 21:00 04/06/17 20:59 12/21/17 20:47 1 UNITS Enoxaparin Sodium (Lovenox Inj) 40 mg QAM SQ 03/08/17 09:00 04/07/17 08:59 03/09/17 09:14 40 MG Methylprednisolone Sodium Succinate 40 mg/Syringe 0.64 ml @ 1.5 mls/min BID IV 03/08/17 09:00 04/07/17 08:59 Future Hold 03/08/17 08:27 1.5 MLS/MIN Levofloxacin 500 mg/Prmx 100 ml @ 100 mls/hr Q24H IV 03/08/17 18:00 03/15/17 17:59 03/08/17 17:00 100 MLS/HR Glucose (Glucose 40% Gel) 15-30 GRAMS 15 GRAMS... UD PRN PO 03/07/17 21:15 04/06/17 21:14 Glucose (Glucose Chew Tab) 4-8 Tablets 4 Tabl... UD PRN PO 03/07/17 21:15 04/06/17 21:14 Dextrose (Dextrose 50% 50ML Syringe) 25-50ML OF 50% DW IV FOR... UD PRN IV 03/07/17 21:15 04/06/17 21:14 Glucagon (Glucagon Inj) 1 mg UD PRN SQ 03/07/17 21:15 04/06/17 21:14 Sodium Chloride ([place] Nasal [place]) 2 sprays Q1H PRN NA 03/08/17 11:45 04/07/17 11:44 Vital Signs: Date Time Temp Pulse Resp B/P (MAP) Pulse Ox O2 Delivery O2 Flow Rate FiO2 03/09/17 11:12 71 18 91 Nasal Cannula 4.0 03/09/17 08:00 Nasal Cannula 4.0 03/09/17 07:54 36.4 71 20 117/70 (86) 87 Nasal Cannula 4.0 03/09/17 07:06 72 18 90 Nasal Cannula 4.0 03/09/17 04:00 88 Oxymask 4.0 03/09/17 03:43 36.4 83 23 114/68 (83) 88 Nasal Cannula 4.0 03/09/17 01:06 82 94 50 03/09/17 00:01 85 Oxymask 4.0 03/08/17 23:38 36.4 86 17 113/66 (82) 85 Nasal Cannula 4.0 03/08/17 20:00 91 Oxymask 4.0 03/08/17 19:53 36.4 90 22 132/68 (89) 86 Oxymask 4.0 03/08/17 19:09 81 18 92 Mask 4.0 03/08/17 16:04 36.6 82 22 132/79 (96) 87 Oxymask 4.0 03/08/17 16:00 87 Oxymask 4.0 03/08/17 15:28 84 20 86 Mask 4.0 03/08/17 12:00 Oxymask 4.0 03/08/17 12:00 36.6 77 134/79 (97) 94 Oxymask 4.0 Laboratory Results: Last 24 Hours Test 03/08/17 16:07 03/08/17 20:45 03/09/17 05:21 03/09/17 06:43 Bedside Glucose 165 mg/dl 167 mg/dl 135 mg/dl White Blood Count 8.63 K/uL Red Blood Count 5.04 M/uL Hemoglobin 13.3 g/dL Hematocrit 42.4 % Mean Corpuscular Volume 84.1 fL Mean Corpuscular Hemoglobin 26.4 pg Mean Corpuscular Hemoglobin Concent 31.4 g/dl Platelet Count 211 K/uL Mean Platelet Volume 9.5 fL Neutrophils (%) (Auto) 88.2 % Lymphocytes (%) (Auto) 6.0 % Monocytes (%) (Auto) 5.6 % Eosinophils (%) (Auto) 0.0 % Basophils (%) (Auto) 0.0 % Neutrophils # (Auto) 7.61 K/uL Lymphocytes # (Auto) 0.52 K/uL Monocytes # (Auto) 0.48 K/uL Eosinophils # (Auto) 0.00 K/uL Basophils # (Auto) 0.00 K/uL RDW Standard Deviation 61.0 fL RDW Coefficient of Variation 20.0 % Immature Granulocyte % (Auto) 0.2 % Immature Granulocyte # (Auto) 0.02 K/uL Anisocytosis PRESENT Sodium Level 134 mmol/L Potassium Level 4.4 mmol/L Chloride Level 97 mmol/L Carbon Dioxide Level 30 mmol/L Anion Gap 6.0 mmol/L Blood Urea Nitrogen 23 mg/dl Creatinine 1.35 mg/dl Est Creatinine Clear Calc Drug Dose 71.0 ml/min Estimated GFR () 65.2 Estimated GFR (Non- 56.3 BUN/Creatinine Ratio 16.8 Random Glucose 122 mg/dl Calcium Level 8.8 mg/dl
--- NOTE | 2017-03-09 12:00 | NUR ---
no changes in assessment see EMR for more details. vss. no c/o pain nausea sob. call green in reach safety reviewed needs addressed.
--- NOTE | 2017-03-09 13:08 | NUR ---
Case Management: Followed up with patient regarding bipap machine. Pt. 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 Pt. agreeable to using [facility] if they are covered by his insurance. Spoke with Justine at [facility] who was also in the office. Marti [facility] navigator was able to pull records from previous PFT's to qualify pt. for bipap. Justine states he would qualify for trilogy machine and requests us to fax over information to verify pt. insurance. Information faxed, case management to follow. Dr. Vizcaino also aware. Addendum: 03/09/17 at 1612 by Vonnie Albert SERV Zoe, from [facility], called to say that they ran pt. insurance. He has a $700/deductible, 50% coinsurance ($350.~)/monthly until $1999./deductible. She asked that MD order overnight pulse ox and morning ABG's to help qualify for bipap. Updated MD on new issue.
--- NOTE | 2017-03-09 16:00 | NUR ---
no changes in assessment at this time, see EMR for more details. vss. no c/o pain nausea sob. call green in reach safety reviewed needs addressed.
--- NOTE | 2017-03-09 16:24 | Hospitalist Progress Note ---
Hospitalist Progress Note Date of Service Mar 09, 2017. (Gauri Rivero PA-C) Subjective Pt evaluation today including: conversation w/ patient, physical exam, chart review, lab review, review of studies, conversation w/ product consultant (Dr. Coats), review of inpatient medication list Patient seen and evaluated. Patient with significant hypoxia when attempting to do overnight oximetry which needed to be canceled. Given patient's pulmonary hypertension and previous PFTs he will qualify for BiPAP. Patient reports that when he lays down for sleep is 02 saturation goes to the 70s. During my exam today, patient is sitting on the edge of the bed and oxygenation at 85% on 4 L. He continues to have a productive cough of yellow to dark colored sputum. He feels that his sputum production is becoming looser. Patient was noncompliant with fluid restriction and had poor diuresis with currently only a negative balance of 400 mL. However, patient states that he continues to feel improvement in the edema of his legs and his abdomen. States he initially cannot wear his underwear due to suprapubic edema which is improving. Bilateral thigh edema is still present, yesterday was about 1+ in today trace in the thighs. Constitutional: No fever, No chills Respiratory: + cough, + sputum, + dyspnea on exertion, No dyspnea at rest Cardiovascular: No chest pain Abdomen: No pain, No nausea, No vomiting, No diarrhea, No constipation Musculoskeletal: + swelling (bilateral lower extremities-improving; improving bilateral thigh edema; improving abdominal edema) Male : No dysuria (Gauri Rivero PA-C) Medications Current Inpatient Medications Medications (Trade) Dose Ordered Sig/González Route Start Time Stop Time Status Last Admin Dose Admin Acetaminophen (Tylenol Tab) 650 mg Q4H PRN PO 03/07/17 19:30 04/06/17 19:29 Ondansetron HCl (Zofran Inj) 4 mg Q6H PRN IV 03/07/17 19:30 04/06/17 19:29 Polyethylene (Miralax Powder Packet) 17 gm DAILY PRN PO 03/07/17 19:30 04/06/17 19:29 Amlodipine Besylate (Norvasc Tab) 10 mg QAM PO 03/08/17 09:00 04/07/17 08:59 03/09/17 09:13 10 MG Aspirin (Ecotrin Tab) 81 mg DAILY PO 03/08/17 09:00 04/07/17 08:59 03/09/17 09:13 81 MG Cephalexin Monohydrate (Keflex Cap) 500 mg TID PO 03/07/17 21:00 03/17/17 20:59 Future Hold Salmeterol Xinafoate/ Fluticasone (Advair Diskus 250/50 Inh) 1 puff BID INH 03/07/17 21:00 04/06/17 20:59 03/09/17 09:13 1 PUFF Metoprolol Succinate (Toprol Xl Tab) 50 mg QAM PO 03/08/17 09:00 04/07/17 08:59 03/09/17 09:13 50 MG Multivitamins (Multivitamin Tab) 1 tab QAM PO 03/08/17 09:00 04/07/17 08:59 03/09/17 09:13 1 TAB Spironolactone (Aldactone Tab) 25 mg QAM PO 03/08/17 09:00 04/07/17 08:59 03/09/17 09:14 25 MG Tiotropium [place] (Spiriva Handihaler Inhaler) 1 puff QAM INH 03/08/17 09:00 04/07/17 08:59 03/09/17 09:14 1 PUFF Potassium Chloride (Klor-Con M10) 10 meq QAM PO 03/08/17 09:00 04/07/17 08:59 03/09/17 09:13 10 MEQ Furosemide 40 mg/ Syringe 4 ml @ 4 mls/min Q12H IV 03/08/17 08:00 04/07/17 07:59 03/09/17 09:13 4 MLS/MIN Albuterol/ Ipratropium (Duoneb) 3 ml QIDR INH 03/07/17 20:00 04/06/17 19:59 03/09/17 15:02 3 ML Insulin Aspart (novoLOG ASPART) SLIDING SCALE If C... ACHS SC 03/07/17 21:00 04/06/17 20:59 03/08/17 20:47 1 UNITS Enoxaparin Sodium (Lovenox Inj) 40 mg QAM SQ 03/08/17 09:00 04/07/17 08:59 03/09/17 09:14 40 MG Methylprednisolone Sodium Succinate 40 mg/Syringe 0.64 ml @ 1.5 mls/min BID IV 03/08/17 09:00 04/07/17 08:59 Future Hold 03/08/17 08:27 1.5 MLS/MIN Glucose (Glucose 40% Gel) 15-30 GRAMS 15 GRAMS... UD PRN PO 03/07/17 21:15 04/06/17 21:14 Glucose (Glucose Chew Tab) 4-8 Tablets 4 Tabl... UD PRN PO 03/07/17 21:15 04/06/17 21:14 Dextrose (Dextrose 50% 50ML Syringe) 25-50ML OF 50% DW IV FOR... UD PRN IV 03/07/17 21:15 04/06/17 21:14 Glucagon (Glucagon Inj) 1 mg UD PRN SQ 03/07/17 21:15 04/06/17 21:14 Sodium Chloride ([place] Nasal [place]) 2 sprays Q1H PRN NA 03/08/17 11:45 04/07/17 11:44 Levofloxacin (Levaquin Tab) 500 mg DAILY@11 PO 03/09/17 17:00 03/15/17 16:59 (Gauri Rivero, SUHA) Objective Vital Signs Date Time Temp Pulse Resp B/P (MAP) Pulse Ox O2 Delivery O2 Flow Rate FiO2 03/09/17 15:04 76 18 90 Nasal Cannula 4.0 03/09/17 12:03 36.4 73 20 111/70 (84) 91 Nasal Cannula 4.0 03/09/17 12:00 Nasal Cannula 4.0 03/09/17 11:12 71 18 91 Nasal Cannula 4.0 03/09/17 08:00 Nasal Cannula 4.0 03/09/17 07:54 36.4 71 20 117/70 (86) 87 Nasal Cannula 4.0 03/09/17 07:06 72 18 90 Nasal Cannula 4.0 03/09/17 04:00 88 Oxymask 4.0 03/09/17 03:43 36.4 83 23 114/68 (83) 88 Nasal Cannula 4.0 03/09/17 01:06 82 94 50 03/09/17 00:01 85 Oxymask 4.0 03/08/17 23:38 36.4 86 17 113/66 (82) 85 Nasal Cannula 4.0 03/08/17 20:00 91 Oxymask 4.0 03/08/17 19:53 36.4 90 22 132/68 (89) 86 Oxymask 4.0 03/08/17 19:09 81 18 92 Mask 4.0 (Gauri Rivero PA-C) Physical Exam General Appearance: no apparent distress, + obese Eyes: sclerae normal ENT: hearing grossly normal Neck: supple, no JVD, trachea midline Respiratory/Chest: lungs clear, no respiratory distress, no accessory muscle use Cardiovascular: regular rate, rhythm, no gallop, no murmur Abdomen: normal bowel sounds, non tender, soft Extremities: + swelling (bilateral lower extremities; chronic stasis changes bilaterally; trace pitting edema of bilateral thighs) Neurologic/Psychiatric: alert, oriented x 3 Skin: normal color, warm/dry (Gauri Rivero, JUICE-C) Laboratory Results Last 24 Hours Test 03/08/17 16:07 03/08/17 20:45 03/09/17 05:21 03/09/17 06:43 Bedside Glucose 165 mg/dl 167 mg/dl 135 mg/dl White Blood Count 8.63 K/uL Red Blood Count 5.04 M/uL Hemoglobin 13.3 g/dL Hematocrit 42.4 % Mean Corpuscular Volume 84.1 fL Mean Corpuscular Hemoglobin 26.4 pg Mean Corpuscular Hemoglobin Concent 31.4 g/dl Platelet Count 211 K/uL Mean Platelet Volume 9.5 fL Neutrophils (%) (Auto) 88.2 % Lymphocytes (%) (Auto) 6.0 % Monocytes (%) (Auto) 5.6 % Eosinophils (%) (Auto) 0.0 % Basophils (%) (Auto) 0.0 % Neutrophils # (Auto) 7.61 K/uL Lymphocytes # (Auto) 0.52 K/uL Monocytes # (Auto) 0.48 K/uL Eosinophils # (Auto) 0.00 K/uL Basophils # (Auto) 0.00 K/uL RDW Standard Deviation 61.0 fL RDW Coefficient of Variation 20.0 % Immature Granulocyte % (Auto) 0.2 % Immature Granulocyte # (Auto) 0.02 K/uL Anisocytosis PRESENT Sodium Level 134 mmol/L Potassium Level 4.4 mmol/L Chloride Level 97 mmol/L Carbon Dioxide Level 30 mmol/L Anion Gap 6.0 mmol/L Blood Urea Nitrogen 23 mg/dl Creatinine 1.35 mg/dl Est Creatinine Clear Calc Drug Dose 71.0 ml/min Estimated GFR () 65.2 Estimated GFR (Non- 56.3 BUN/Creatinine Ratio 16.8 Random Glucose 122 mg/dl Calcium Level 8.8 mg/dl Test 03/09/17 11:12 Bedside Glucose 121 mg/dl (Gauri Rivero PA-C) Assessment and Plan Mr. Berry is a 61 year old male here for increasing sob and edema over the past couple of weeks. Acute on Chronic Respiratory Failure 2/2 Diastolic CHF/Cor Pulmonale and Possible Mild COPD Exacerbation: - Currently on 4 L which is baseline; continue to get patient qualified for home BiPAP - patient dropping SaO2 in 70s at night - Levaquin 500 mg po daily - Surprisingly, patient's lung exam was largely benign and is moving good air today without wheezing but O2 at rest still around 85% during my exam - will continue to monitor off steroids - Pulmonology following - appreciate recommendations - discussed with Dr. Coats - continue to optimize chronic conditions and recommending home CPAP/BiPAP -- Recommending SaO2 between 88-92% and to avoid over oxygenation Acute on Chronic Diastolic CHF and Pulm HTN: - Echo with grade II diastolic dysfunction; EF 55-60% and elevated R systolic pressures - Lasix 40 mg IV BID - Cardiology following - appreciate recommendations - continue diuresis and monitoring of kidney function HTN: - Norvasc 10 mg daily (consideration for reduction due to edema) Lower Extremity Wounds: - Hold Keflex while utilizing Levaquin - continue dressing changes and consult wound DVT Prophylaxis: Lovenox Disposition: Appreciate case management assistance with obtaining BiPAP - will reattempt overnight oximetry and ABG -- Trilogy with significant co-pays and will continue to try and obtain BiPAP for him as concern given pulmonary HTN that this patient will continue to deteriorate from a respiratory standpoint without this intervention. Continued [facility] stay due to: multiple IV medications needed Discharge planning: home (Gauri Rivero PA-C) Attending Note. I examined patient and performed a history on the patient. I agree with above note after reviewing and discussing case with patient and APC. Due to chronic respiratory failure consequent to COPD, patient now requires a non-invasive home ventilator, Bi level therapy with and without a rate would be ineffective as patient requires a volume targeted mode. Ventilation is required to decrease the work of breathing and improve pulmonary status. Interruption of ventilatory support would lead to decline of health status. Patient is complicated as well given his multiple comorbidities including Obesity, CHF, and COPD. (Kel Vizcaino M.D.)
[2017-03-09] MEDS ORDERED: LEVOFLOXACIN 750 MG TAB PO SCH (17:00)
[2017-03-09] MEDS: LEVOFLOXACIN 500 MG TAB PO SCH (17:00)
--- NOTE | 2017-03-09 20:05 | NUR ---
A: Full assessment complete. See EMR. Pt is A&O x 4, sitting up on the edge of the bed. SR 80s with PVCs on the monitor. Pt is currently on 4L via N/C. Encouraged IS use 10x/hr WA. Pt able to reach to 2250. Saline locked x 1. Denies having any pain/discomfort. No needs verbalized or apparent at this time. Will continue to monitor. Call green in reach.
--- NOTE | 2017-03-09 23:30 | NUR ---
A: Assessment complete. See EMR. VS obtained. Sats noted to be in the high 70s on 6L via N/C. Pt participating in overnight pulse ox study. Respiratory notified, pt placed on Bipap. Pt unhappy and angry with Bipap use. Received education from Erasmo RT about use. Pt agreeing to wear it. Saline locked x 1. Denies having any pain/discomfort. No needs verbalized or apparent at this time. Will continue to monitor. Call green in reach.
[2017-03-10] VITALS (12 sets, daily range): BP systolic 107–135; BP diastolic 60–75; PULSE 62–90; TEMP 36.4–36.8; O2SAT 79–92
--- NOTE | 2017-03-10 04:00 | NUR ---
A: Assessment complete. See EMR. VSS. Pt remains on Bipap 10/5, 50%. Saline locked x 1. Denies having any pain/discomfort. No needs verbalized or apparent at this time. Will continue to monitor. Call green in reach.
[2017-03-10 05:21] LABS: BASO % 0.1 %; BASO ABS # 0.01 K/uL (0-0.2); EOS % 0.3 %; EOS ABS # 0.03 K/uL (0-0.5); HEMATOCRIT 42.7 % (42-52); HEMOGLOBIN 13.3 g/dL (14.0-18.0); IG# 0.02 K/uL (0.00-0.02); LYMPH ABS # 1.36 K/uL (1.2-3.4); MEAN CELL VOLUME 84.6 fL (80-100); MEAN CORPUSCULAR HEMOGLOBIN 26.3 pg (25-34); MEAN CORPUSCULAR HGB CONC 31.1 g/dl (32-36); MEAN PLATELET VOLUME 9.3 fL (7.4-10.4); MONO % 6.1 %; MONO ABS # 0.55 K/uL (0.11-0.59); NEUT % 78.3 %; PLATELET COUNT 198 K/uL (130-400); RED CELL DISTRIBUTION WIDTH CV 20.1 % (11.5-14.5); RED CELL DISTRIBUTION WIDTH SD 61.5 fL (36.4-46.3); WHITE BLOOD COUNT 9.07 K/uL (4.8-10.8)
--- NOTE | 2017-03-10 05:23 | NUR ---
PULSE OX OVERNIGHT STUDY NOTES 213 test done on RA patient desaturated to 79% 2139 6L nasal cannula applied 2324 bipap 10/5 50% applied per Dr. West
[2017-03-10 06:10] LABS: CALCIUM 8.7 mg/dl (8.5-10.1); CREATININE 1.13 mg/dl (0.60-1.40); POTASSIUM 3.9 mmol/L (3.5-5.1)
[2017-03-10] MEDS: ALBUT/IPRATROP 3MG/0.5MG NEB 3 ML VIAL INH SCH ×4 (06:55→19:18)
[2017-03-10] MEDS: INSULIN ASPART 100 UNITS/ML 3 ML PEN SC SCH ×4 (07:00→21:00)
[2017-03-10] MEDS: FLUTICASONE/SALMETEROL 250/50 (ADVAIR) 14 PUFF/1 INHALER INH SCH ×2 (07:35→20:01)
[2017-03-10] MEDS: POTASSIUM CHLORIDE 10 MEQ TABCR PO SCH (07:36)
[2017-03-10] MEDS: FUROSEMIDE INJ 40 MG in SYRINGE 0 ML IV SCH ×2 (07:36→20:01)
[2017-03-10] MEDS: SPIRONOLACTONE 25 MG TAB PO SCH (07:37)
[2017-03-10] MEDS: MULTIVITAMIN TAB PO SCH (07:37)
[2017-03-10] MEDS: TIOTROPIUM BROMIDE 5 PUFF/90 MCG INH INH SCH (07:37)
[2017-03-10] MEDS: ASPIRIN 81 MG ECTAB PO SCH (07:39)
[2017-03-10] MEDS: AMLODIPINE BESYLATE 5 MG TAB PO SCH (07:39)
[2017-03-10] MEDS: ENOXAPARIN 40 MG/0.4 ML SYR SQ SCH (07:40)
[2017-03-10] MEDS: METOPROLOL SUCC 50MG EXT REL TAB PO SCH (07:40)
--- NOTE | 2017-03-10 08:00 | NUR ---
A-PATIENT OOB INTO CHAIR...VSS. O2 VIA OXYMASK LIZA....ABGS TODAY EARLIER P02 [id number]....MD WAS MADE AWARE,BREATHSOUNDS DIMINISHED....
--- NOTE | 2017-03-10 12:14 | NUR ---
A- NO CHANGE IN PHYSICAL ASSESSMENT SINCE 0800.
--- NOTE | 2017-03-10 12:30 | Pulmonology Progress Note ---
Pulmonary Progress Note Date of Service Mar 10, 2017. Attending Dr. Coats Subjective Patient seen and examined at bedside. He states that he slept okay overnight. He denies any shortness of breath, chest pain or cough. He would like to be discharged today if possible. Objective VS reviewed. MAXIMUM TEMPERATURE 36.6, blood pressure 107/60 to 129/74, pulse 62-90, respiratory rate 16-22, pulse oximetry 79-92% on 6 L nasal cannula. He was also intermittently on BiPAP 50%. Gen: AAOx3, NAD, Speaking in full sentences, no respiratory distress. CVS: S1, S2, RRR Lungs: Decreased breath sound bilaterally, no crackles, no wheezing Abd: soft/NT/ND/BS+ Ext: trace edema, chronic venous changes, with bilateral dressings in place. No cyanosis, no clubbing Labs reviewed. Imaging reviewed. Medications reviewed. ABG 7.41/46/54/29/84.5% on 6 L. Sputum cultures--normal sugey Assessment & Plan Morbid obesity Acute on chronic hypoxic respiratory failure Mild COPD with bronchitis Elevated right heart pressures with cor pulmonale Diastolic dysfunction Possible obesity hyperventilation syndrome Obstructive sleep apnea Cirrhosis Epistasis Patient has persistent hypoxia despite oxygenation. He had episode of profound hypoxemia during sleep. He likely has underlying obesity hypoventilation syndrome and has a previous diagnosis of TERRELL. TTE done 03/08/2017 is consistent with grade II diastolic dysfunction and pulmonary hypertension with estimated pressures > 60 mmHg. LV systolic function is normal with EF 55-60%. Nocturnal oximetry still shows desaturation despite being on BiPAP 10/5, FiO2 50%. Recommendations Continue with supplemental oxygenation to maintain SaO2 between 88-92%. Be careful not over oxygenate him. This may decrease his respiratory drive. Be judicious with sedatives and narcotics as well as this can precipitate hypercapnia. He will likely qualify for BIPAP upon hospital discharge due to pulmonary hypertension. He continues have nocturnal hypoxemia despite being on on BiPAP machine. He should have outpatient polysomnography to accurately diagnose obstructive/ central sleep apnea. Will obtain CTA to rule out PE today Continue with Albuterol/ipratropium nebs, Spiriva, and Advair. Continue with nasal saline for nose bleeds. Continue to diurese as his kidney functions tolerates Continue the DVT ppx. Data Medications: Current Inpatient Medications Medications (Trade) Dose Ordered Sig/González Route Start Time Stop Time Status Last Admin Dose Admin Acetaminophen (Tylenol Tab) 650 mg Q4H PRN PO 03/07/17 19:30 04/06/17 19:29 Ondansetron HCl (Zofran Inj) 4 mg Q6H PRN IV 03/07/17 19:30 04/06/17 19:29 Polyethylene (Miralax Powder Packet) 17 gm DAILY PRN PO 03/07/17 19:30 04/06/17 19:29 Amlodipine Besylate (Norvasc Tab) 10 mg QAM PO 03/08/17 09:00 04/07/17 08:59 03/10/17 07:39 10 MG Aspirin (Ecotrin Tab) 81 mg DAILY PO 03/08/17 09:00 04/07/17 08:59 03/10/17 07:39 81 MG Cephalexin Monohydrate (Keflex Cap) 500 mg TID PO 03/07/17 21:00 03/17/17 20:59 Future Hold Salmeterol Xinafoate/ Fluticasone (Advair Diskus 250/50 Inh) 1 puff BID INH 03/07/17 21:00 04/06/17 20:59 03/10/17 07:35 1 PUFF Metoprolol Succinate (Toprol Xl Tab) 50 mg QAM PO 03/08/17 09:00 04/07/17 08:59 03/10/17 07:40 50 MG Multivitamins (Multivitamin Tab) 1 tab QAM PO 03/08/17 09:00 04/07/17 08:59 03/10/17 07:37 1 TAB Spironolactone (Aldactone Tab) 25 mg QAM PO 03/08/17 09:00 04/07/17 08:59 03/10/17 07:37 25 MG Tiotropium Clare (Spiriva Handihaler Inhaler) 1 puff QAM INH 03/08/17 09:00 04/07/17 08:59 03/10/17 07:37 1 PUFF Potassium Chloride (Klor-Con M10) 10 meq QAM PO 03/08/17 09:00 04/07/17 08:59 03/10/17 07:36 10 MEQ Furosemide 40 mg/ Syringe 4 ml @ 4 mls/min Q12H IV 03/08/17 08:00 04/07/17 07:59 03/10/17 07:36 4 MLS/MIN Albuterol/ Ipratropium (Duoneb) 3 ml QIDR INH 03/07/17 20:00 18 19:59 03/10/17 11:10 3 ML Insulin Aspart (novoLOG ASPART) SLIDING SCALE If C... ACHS SC 03/07/17 21:00 04/06/17 20:59 03/08/17 20:47 1 UNITS Enoxaparin Sodium (Lovenox Inj) 40 mg QAM SQ 03/08/17 09:00 04/07/17 08:59 03/10/17 07:40 40 MG Methylprednisolone Sodium Succinate 40 mg/Syringe 0.64 ml @ 1.5 mls/min BID IV 03/08/17 09:00 04/07/17 08:59 Future Hold 03/08/17 08:27 1.5 MLS/MIN Glucose (Glucose 40% Gel) 15-30 GRAMS 15 GRAMS... UD PRN PO 03/07/17 21:15 04/06/17 21:14 Glucose (Glucose Chew Tab) 4-8 Tablets 4 Tabl... UD PRN PO 03/07/17 21:15 04/06/17 21:14 Dextrose (Dextrose 50% 50ML Syringe) 25-50ML OF 50% DW IV FOR... UD PRN IV 03/07/17 21:15 04/06/17 21:14 Glucagon (Glucagon Inj) 1 mg UD PRN SQ 03/07/17 21:15 04/06/17 21:14 Sodium Chloride ([place] Nasal [place]) 2 sprays Q1H PRN NA 03/08/17 11:45 04/07/17 11:44 Levofloxacin (Levaquin Tab) 500 mg DAILY@11 PO 03/09/17 17:00 03/15/17 16:59 03/09/17 17:00 500 MG Vital Signs: Date Time Temp Pulse Resp B/P (MAP) Pulse Ox O2 Delivery O2 Flow Rate FiO2 03/10/17 11:41 36.5 71 20 129/74 (92) 90 Diffusion Mask 6.0 71 03/10/17 11:13 70 16 90 Mask 6.0 03/10/17 08:00 Oxymask 6.0 03/10/17 07:42 36.4 72 16 123/75 (91) 90 03/10/17 06:56 62 18 90 Mask 6.0 03/10/17 05:28 82 22 79 Room Air 03/10/17 04:00 BiPAP 03/10/17 03:45 36.6 71 20 107/60 (76) 90 CPAP 50 90 03/10/17 02:19 65 92 50 03/10/17 00:01 BiPAP 03/09/17 23:34 87 92 50 03/09/17 23:21 36.6 82 20 109/67 (81) 79 Nasal Cannula 6.0 03/09/17 20:06 36.4 79 22 124/69 (87) 86 Nasal Cannula 4.0 03/09/17 20:00 Nasal Cannula 4.0 03/09/17 19:07 79 16 88 Nasal Cannula 4.0 03/09/17 16:11 36.5 73 20 121/72 (88) 86 Nasal Cannula 4.0 03/09/17 16:00 Nasal Cannula 4.0 03/09/17 15:04 76 18 90 Nasal Cannula 4.0 03/09/17 12:03 36.4 73 20 111/70 (84) 91 Nasal Cannula 4.0 03/09/17 12:00 Nasal Cannula 4.0 Laboratory Results: Last 24 Hours Test 03/09/17 16:26 03/09/17 20:45 03/10/17 05:05 03/10/17 07:07 Bedside Glucose 124 mg/dl 111 mg/dl 86 mg/dl White Blood Count 9.07 K/uL Red Blood Count 5.05 M/uL Hemoglobin 13.3 g/dL Hematocrit 42.7 % Mean Corpuscular Volume 84.6 fL Mean Corpuscular Hemoglobin 26.3 pg Mean Corpuscular Hemoglobin Concent 31.1 g/dl Platelet Count 198 K/uL Mean Platelet Volume 9.3 fL Neutrophils (%) (Auto) 78.3 % Lymphocytes (%) (Auto) 15.0 % Monocytes (%) (Auto) 6.1 % Eosinophils (%) (Auto) 0.3 % Basophils (%) (Auto) 0.1 % Neutrophils # (Auto) 7.10 K/uL Lymphocytes # (Auto) 1.36 K/uL Monocytes # (Auto) 0.55 K/uL Eosinophils # (Auto) 0.03 K/uL Basophils # (Auto) 0.01 K/uL RDW Standard Deviation 61.5 fL RDW Coefficient of Variation 20.1 % Immature Granulocyte % (Auto) 0.2 % Immature Granulocyte # (Auto) 0.02 K/uL Polychromasia 1+ Hypochromasia PRESENT Anisocytosis PRESENT Arterial Blood pH 7.41 Arterial Blood Partial Pressure CO2 46 mmHg Arterial Blood Partial Pressure O2 54 mm/Hg Arterial Blood HCO3 29 mmol/L Arterial Blood Oxygen Saturation 84.5 % Arterial Blood Base Excess 3.3 mEq/L Arterial Blood Gas Delivery 6L Brian Test POS Sodium Level 134 mmol/L Potassium Level 3.9 mmol/L Chloride Level 99 mmol/L Carbon Dioxide Level 28 mmol/L Anion Gap 7.0 mmol/L Blood Urea Nitrogen 26 mg/dl Creatinine 1.13 mg/dl Est Creatinine Clear Calc Drug Dose 84.9 ml/min Estimated GFR () 80.9 Estimated GFR (Non- 69.8 BUN/Creatinine Ratio 23.0 Random Glucose 80 mg/dl Calcium Level 8.7 mg/dl
[2017-03-10] MEDS: LEVOFLOXACIN 500 MG TAB PO SCH (12:35)
[2017-03-10] MEDS ORDERED: FUROSEMIDE INJ 40 MG in SYRINGE 0 ML IV ONE (13:00)
--- NOTE | 2017-03-10 13:15 | NUR ---
call center trainer case management note. Spoke with md and plan for discharge tomorrow. Spoke with Justine at [facility] oxygen. Pt does not qualify for bipap based on abg's. CO2 needs to be >52. Faxed overnight pulse ox and md note to [facility]. Pt would qualify for trilogy but it's more money. Updated md. He will order abg's tomorrow. Update resp. therapy. Called nursing to update. Either way [facility] can take trilogy or bipap out tomorrow. Case management to follow with pt. Addendum: 03/10/17 at 1320 by Zack Zaman SERV They can take bipap out tomorrow if abg's qualify him.
--- NOTE | 2017-03-10 15:29 | NUR ---
A- PATIENT SCHEDULED FOR CT SCAN TO R/O PE.Usman OVIEDO HERE TO EXPLAIN PLAN OF CARE FOR THIS PATIENT.
[2017-03-10] MEDS ORDERED: OPTIRAY 320 IV PRN (17:00)
--- NOTE | 2017-03-10 17:09 | NUR ---
pt presents to CT with 18 g iv right ac. iv tested. leaking around site under secured iv occlusal film. attempted to remove occlusal film to tighten iv for injection. occlusal film was adhered to skin. skin tear at attempted occlusal film site discussed with Delmy HARGROVE PCU
--- NOTE | 2017-03-10 17:19 | DIAGNOSTIC IMAGING REPORT ---
CHEST CTA for PULMONARY ARTERIES CT DOSE: 756.70 mGy.cm HISTORY: Hypoxia. TECHNIQUE: Multiaxial CT images of the chest were performed following the intravenous administration of contrast to evaluate the pulmonary arteries. Maximal intensity projection images were also obtained. A dose lowering technique was utilized adhering to the principles of ALARA. COMPARISON STUDY: Outside hospital chest CTA 03/21/[address] 03/28/2013. FINDINGS: There is again noted a cirrhotic liver with interval development of a small to moderate ascites. The spleen is mildly enlarged consistent with portal hypertension. Normal adrenal glands. Possible 2 cm hypodense lesion within the right hepatic dome on image 43. Trace pericardial fluid. No pleural effusions. The heart remains borderline enlarged. The thyroid gland enhances normally. Normal caliber thoracic aorta with no evidence for dissection. There are coronary artery calcifications. Periportal lymphadenopathy, unchanged. No significant change in the mediastinal and bilateral hilar lymphadenopathy. Dominant right peritracheal lymph node measures 2.4 x 2.2 cm. No acute fractures within the visualized osseous structures. No pneumothorax. The central airways are patent. Mild emphysema and diffuse interstitial thickening seen within the lungs. Linear density within the superior segment of the left lower lobe favors atelectasis. This is new from the prior study. A few scattered linear densities within the lungs favor subsegmental atelectasis or scarring. Stable right heart enlargement and dilatation of the main pulmonary artery consistent with pulmonary arterial hypertension. The main pulmonary artery measures up to 4.3 cm in diameter. No filling defects within the pulmonary arteries to suggest pulmonary embolus. IMPRESSION: 1. No evidence for pulmonary embolus. 2. Cirrhotic liver with a small to moderate amount of ascites. 3. Possible 2 cm hypodense lesion within the right hepatic dome. Follow-up nonemergent liver MRI is recommended for further evaluation. 4. No significant change in the mediastinal, hilar, periportal lymphadenopathy. 5. Diffuse interstitial thickening remains unchanged. Therefore, this is consistent with a chronic interstitial lung disease. 6. Emphysema. 7. No change in the pulmonary arterial hypertension. Electronically signed by: Uche Miller M.D. 03/10/2017 5:18 PM Dictated Date/Time: 03/10/2017 5:06 PM
--- NOTE | 2017-03-10 20:00 | NUR ---
PT SITTING ON SIDE OF BED COMFORTABLY. PT ASSESSED, SEE EMR. PT DENIES PAIN AND DYSPNEA. NO ACUTE DISTRESS NOTED. PT REPORTS DRY NOSE DUE TO OXYMASK, EDUCATION PROVIDED, NASAL SPRAY AND MOISTURIZER PROVIDED. PT ASSISTED INTO BED, POSITIONED FOR COMFORT. CALL PATINO WITHIN REACH, MONITORING.
[2017-03-10] MEDS ORDERED: NURSING DECISION MEDICATION ORDER SCH (20:15)
--- NOTE | 2017-03-10 22:51 | Progress Note ---
Subjective Date of Service: Mar 10, 2017. Subjective Pt evaluation today including: conversation w/ patient, physical exam 61 yo male continues to have shortness of breath.. He feels mildly better but still not at baseline. He would like to be home for the as he has a big dinner planned. Problem List Medical Problems: (1) CHF exacerbation Status: Acute (2) Hypoxia Status: Acute Review of Systems Constitutional: No fever, No chills Respiratory: + cough, + wheezing, + shortness of breath Cardiac: No chest pain, No orthopnea Abdomen: No pain, No nausea Neurologic: No memory loss, No paralysis Heme: No abnormal bleeding/bruising Endo: No fatigue Skin: No rash, No itch All Other Systems: Reviewed and Negative Objective Vital Signs Date Time Temp Pulse Resp B/P (MAP) Pulse Ox O2 Delivery O2 Flow Rate FiO2 03/10/17 20:00 Oxymask 6.0 03/10/17 19:54 36.7 78 22 135/74 (94) 90 Nasal Cannula 6.0 03/10/17 19:20 82 16 90 Mask 6.0 03/10/17 15:46 36.6 81 20 124/73 (90) 90 Oxymask 6.0 03/10/17 15:28 Oxymask 6.0 03/10/17 15:25 84 16 82 Room Air 03/10/17 12:12 Oxymask 6.0 03/10/17 11:41 36.5 71 20 129/74 (92) 90 Diffusion Mask 6.0 71 03/10/17 11:13 70 16 90 Mask 6.0 03/10/17 08:00 Oxymask 6.0 03/10/17 07:42 36.4 72 16 123/75 (91) 90 03/10/17 06:56 62 18 90 Mask 6.0 03/10/17 05:28 82 22 79 Room Air 03/10/17 04:00 BiPAP 03/10/17 03:45 36.6 71 20 107/60 (76) 90 CPAP 50 90 03/10/17 02:19 65 92 50 03/10/17 00:01 BiPAP 03/09/17 23:34 87 92 50 03/09/17 23:21 36.6 82 20 109/67 (81) 79 Nasal Cannula 6.0 Physical Exam Comments: General Appearance: no apparent distress, + obese Eyes: sclerae normal ENT: hearing grossly normal Neck: supple, no JVD, trachea midline Respiratory/Chest: lungs clear, no respiratory distress, no accessory muscle use Cardiovascular: regular rate, rhythm, no gallop, no murmur Abdomen: normal bowel sounds, non tender, edema noted no lower abdomen as it is hard Extremities: + swelling (bilateral lower extremities; chronic stasis changes bilaterally; trace pitting edema of bilateral thighs) Neurologic/Psychiatric: alert, oriented x 3 Skin: normal color, warm/dry Laboratory Results Last 24 Hours Test 03/10/17 05:05 03/10/17 07:07 03/10/17 16:16 03/10/17 20:57 White Blood Count 9.07 K/uL Red Blood Count 5.05 M/uL Hemoglobin 13.3 g/dL Hematocrit 42.7 % Mean Corpuscular Volume 84.6 fL Mean Corpuscular Hemoglobin 26.3 pg Mean Corpuscular Hemoglobin Concent 31.1 g/dl Platelet Count 198 K/uL Mean Platelet Volume 9.3 fL Neutrophils (%) (Auto) 78.3 % Lymphocytes (%) (Auto) 15.0 % Monocytes (%) (Auto) 6.1 % Eosinophils (%) (Auto) 0.3 % Basophils (%) (Auto) 0.1 % Neutrophils # (Auto) 7.10 K/uL Lymphocytes # (Auto) 1.36 K/uL Monocytes # (Auto) 0.55 K/uL Eosinophils # (Auto) 0.03 K/uL Basophils # (Auto) 0.01 K/uL RDW Standard Deviation 61.5 fL RDW Coefficient of Variation 20.1 % Immature Granulocyte % (Auto) 0.2 % Immature Granulocyte # (Auto) 0.02 K/uL Polychromasia 1+ Hypochromasia PRESENT Anisocytosis PRESENT Arterial Blood pH 7.41 Arterial Blood Partial Pressure CO2 46 mmHg Arterial Blood Partial Pressure O2 54 mm/Hg Arterial Blood HCO3 29 mmol/L Arterial Blood Oxygen Saturation 84.5 % Arterial Blood Base Excess 3.3 mEq/L Arterial Blood Gas Delivery 6L Brian Test POS Sodium Level 134 mmol/L Potassium Level 3.9 mmol/L Chloride Level 99 mmol/L Carbon Dioxide Level 28 mmol/L Anion Gap 7.0 mmol/L Blood Urea Nitrogen 26 mg/dl Creatinine 1.13 mg/dl Est Creatinine Clear Calc Drug Dose 84.9 ml/min Estimated GFR () 80.9 Estimated GFR (Non- 69.8 BUN/Creatinine Ratio 23.0 Random Glucose 80 mg/dl Calcium Level 8.7 mg/dl Bedside Glucose 86 mg/dl 106 mg/dl 99 mg/dl Assessment and Plan Mr. Berry is a 61 year old male here for increasing sob and edema over the past couple of weeks. Acute on Chronic Respiratory Failure 2/2 Diastolic CHF/Cor Pulmonale and Possible Mild COPD Exacerbation: -discussed with patient at length of his chronic condition -patient will like to see director machine as a outpatient. -he will try to improve diet. -In regards to his BIPAP, will need to repeat ABG tomorrow. If his CO2 is elevated, will qualify for BIPAP. - Currently on 6 L, Baseline is 4L, continue to get patient qualified for home BiPAP - patient dropping SaO2 in 70s at night - Levaquin 500 mg po daily - Surprisingly, patient's lung exam was largely benign and is moving good air today without wheezing but O2 at rest still around 85% during my exam - will continue to monitor off steroids -Will aggressively diurese patient - Pulmonology following - appreciate recommendations - discussed with Dr. Coats - continue to optimize chronic conditions and recommending home CPAP/BiPAP -- Recommending SaO2 between 88-92% and to avoid over oxygenation Acute on Chronic Diastolic CHF and Pulm HTN: - Echo with grade II diastolic dysfunction; EF 55-60% and elevated R systolic pressures - Lasix 40 mg IV BID, may give an extra dose of lasix - Cardiology following - appreciate recommendations - continue diuresis and monitoring of kidney function HTN: - Norvasc 10 mg daily (consideration for reduction due to edema) Lower Extremity Wounds: - Hold Keflex while utilizing Levaquin - continue dressing changes and consult wound DVT Prophylaxis: Lovenox Disposition: Appreciate case management assistance with obtaining BiPAP - will reattempt overnight oximetry and ABG -- Trilogy with significant co-pays and will continue to try and obtain BiPAP for him as concern given pulmonary HTN that this patient will continue to deteriorate from a respiratory standpoint without this intervention. Continued [facility] stay due to: multiple IV medications needed Discharge planning: home Continued [facility] stay due to: multiple IV medications needed Discharge planning: home
[2017-03-11] VITALS (9 sets, daily range): BP systolic 117–139; BP diastolic 66–81; PULSE 68–88; TEMP 36.5–36.9; O2SAT 86–91
--- NOTE | 2017-03-11 | NUR ---
PT RESTING IN BED COMFORTABLY. NO ACUTE DISTRESS NOTED, SEE EMR FOR ASSESSMENT. DENIES PAIN AND DYSPNEA. CALL PATINO WITHIN REACH, MONITORING.
--- NOTE | 2017-03-11 04:00 | NUR ---
PT RESTING IN BEDSIDE CHAIR COMFORTABLY. DENIES PAIN AND DYSPNEA. VS OBTAINED. SEE EMR FOR ASSESSMENT. NO ACUTE DISTRESS NOTED. CALL PATINO WITHIN REACH, MONITORING.
[2017-03-11 06:16] LABS: BASO % 0.6 %; BASO ABS # 0.04 K/uL (0-0.2); EOS % 1.1 %; EOS ABS # 0.08 K/uL (0-0.5); HEMATOCRIT 43.2 % (42-52); HEMOGLOBIN 13.5 g/dL (14.0-18.0); IG# 0.01 K/uL (0.00-0.02); LYMPH % 14.7 %; LYMPH ABS # 1.03 K/uL (1.2-3.4); MEAN CELL VOLUME 84.9 fL (80-100); MEAN CORPUSCULAR HEMOGLOBIN 26.5 pg (25-34); MEAN CORPUSCULAR HGB CONC 31.3 g/dl (32-36); MEAN PLATELET VOLUME 9.5 fL (7.4-10.4); MONO % 10.4 %; MONO ABS # 0.73 K/uL (0.11-0.59); NEUT % 73.1 %; NEUT ABS # 5.12 K/uL (1.4-6.5); PLATELET COUNT 190 K/uL (130-400); RED CELL DISTRIBUTION WIDTH SD 62.1 fL (36.4-46.3); WHITE BLOOD COUNT 7.01 K/uL (4.8-10.8)
[2017-03-11 06:46] LABS: CALCIUM 8.6 mg/dl (8.5-10.1); CREATININE 1.05 mg/dl (0.60-1.40); POTASSIUM 3.6 mmol/L (3.5-5.1)
[2017-03-11] MEDS: INSULIN ASPART 100 UNITS/ML 3 ML PEN SC SCH ×2 (07:00→11:00)
[2017-03-11] MEDS: ALBUT/IPRATROP 3MG/0.5MG NEB 3 ML VIAL INH SCH ×4 (07:13→19:05)
--- NOTE | 2017-03-11 08:00 | NUR ---
Patient assessed see EMR for more details. vss. no c/o pain nausea sob. call green in reach safety reviewed needs addressed. IV patent and intact. SR on monitor. 88-90% on 6L oxymask with crackles noted in the bases.
[2017-03-11] MEDS: ENOXAPARIN 40 MG/0.4 ML SYR SQ SCH (08:38)
[2017-03-11] MEDS: FUROSEMIDE INJ 40 MG in SYRINGE 0 ML IV SCH ×2 (08:38→20:00)
[2017-03-11] MEDS: FLUTICASONE/SALMETEROL 250/50 (ADVAIR) 14 PUFF/1 INHALER INH SCH ×2 (08:38→20:01)
[2017-03-11] MEDS: ASPIRIN 81 MG ECTAB PO SCH (08:39)
[2017-03-11] MEDS: SPIRONOLACTONE 25 MG TAB PO SCH (08:39)
[2017-03-11] MEDS: MULTIVITAMIN TAB PO SCH (08:39)
[2017-03-11] MEDS: AMLODIPINE BESYLATE 5 MG TAB PO SCH (08:39)
[2017-03-11] MEDS: METOPROLOL SUCC 50MG EXT REL TAB PO SCH (08:39)
[2017-03-11] MEDS: POTASSIUM CHLORIDE 10 MEQ TABCR PO SCH (08:40)
[2017-03-11] MEDS: TIOTROPIUM BROMIDE 5 PUFF/90 MCG INH INH SCH (08:40)
--- NOTE | 2017-03-11 11:43 | Progress Note ---
Subjective Date of Service: Mar 11, 2017. Subjective Pt evaluation today including: conversation w/ patient, physical exam, chart review Patient reports no significant change from yesterday, except for the fact that his belly is softer. Problem List Medical Problems: (1) CHF exacerbation Status: Acute (2) Hypoxia Status: Acute Review of Systems Constitutional: No fever, No chills Respiratory: No cough, No sputum Abdomen: No pain, No nausea Neurologic: No memory loss, No paralysis Endo: No fatigue Skin: No rash, No itch All Other Systems: Reviewed and Negative Objective Vital Signs Date Time Temp Pulse Resp B/P (MAP) Pulse Ox O2 Delivery O2 Flow Rate FiO2 03/11/17 11:05 72 16 86 Mask 6.0 03/11/17 08:00 Oxymask 6.0 03/11/17 07:50 36.9 88 22 118/68 (85) 90 03/11/17 07:14 68 16 91 Mask 6.0 03/11/17 04:45 36.8 69 20 118/66 (83) 88 Nasal Cannula 6.0 03/11/17 04:00 Oxymask 6.0 03/10/17 23:59 Oxymask 6.0 03/10/17 23:35 36.8 77 20 117/67 (84) 89 Mask 5.0 03/10/17 20:00 Oxymask 6.0 03/10/17 19:54 36.7 78 22 135/74 (94) 90 Nasal Cannula 6.0 03/10/17 19:20 82 16 90 Mask 6.0 03/10/17 15:46 36.6 81 20 124/73 (90) 90 Oxymask 6.0 03/10/17 15:28 Oxymask 6.0 03/10/17 15:25 84 16 82 Room Air 03/10/17 12:12 Oxymask 6.0 Physical Exam Comments: General Appearance: no apparent distress, + obese Eyes: sclerae normal ENT: hearing grossly normal Neck: supple, no JVD, trachea midline Respiratory/Chest: lungs clear, no respiratory distress, no accessory muscle use Cardiovascular: regular rate, rhythm, no gallop, no murmur Abdomen: normal bowel sounds, non tender, softer than yesterday Extremities: + swelling (bilateral lower extremities; chronic stasis changes bilaterally; trace pitting edema of bilateral thighs) Neurologic/Psychiatric: alert, oriented x 3 Skin: normal color, warm/dry Laboratory Results Last 24 Hours Test 03/10/17 16:16 03/10/17 20:57 03/11/17 06:03 Bedside Glucose 106 mg/dl 99 mg/dl White Blood Count 7.01 K/uL Red Blood Count 5.09 M/uL Hemoglobin 13.5 g/dL Hematocrit 43.2 % Mean Corpuscular Volume 84.9 fL Mean Corpuscular Hemoglobin 26.5 pg Mean Corpuscular Hemoglobin Concent 31.3 g/dl Platelet Count 190 K/uL Mean Platelet Volume 9.5 fL Neutrophils (%) (Auto) 73.1 % Lymphocytes (%) (Auto) 14.7 % Monocytes (%) (Auto) 10.4 % Eosinophils (%) (Auto) 1.1 % Basophils (%) (Auto) 0.6 % Neutrophils # (Auto) 5.12 K/uL Lymphocytes # (Auto) 1.03 K/uL Monocytes # (Auto) 0.73 K/uL Eosinophils # (Auto) 0.08 K/uL Basophils # (Auto) 0.04 K/uL RDW Standard Deviation 62.1 fL RDW Coefficient of Variation 20.0 % Immature Granulocyte % (Auto) 0.1 % Immature Granulocyte # (Auto) 0.01 K/uL Anisocytosis PRESENT Arterial Blood pH 7.43 Arterial Blood Partial Pressure CO2 47 mmHg Arterial Blood Partial Pressure O2 57 mm/Hg Arterial Blood HCO3 31 mmol/L Arterial Blood Oxygen Saturation 87.9 % Arterial Blood Base Excess 5.2 mEq/L Arterial Blood Gas Delivery 6L Brian Test POS Sodium Level 138 mmol/L Potassium Level 3.6 mmol/L Chloride Level 101 mmol/L Carbon Dioxide Level 32 mmol/L Anion Gap 5.0 mmol/L Blood Urea Nitrogen 26 mg/dl Creatinine 1.05 mg/dl Est Creatinine Clear Calc Drug Dose 89.6 ml/min Estimated GFR () 88.4 Estimated GFR (Non- 76.2 BUN/Creatinine Ratio 24.5 Random Glucose 82 mg/dl Calcium Level 8.6 mg/dl Assessment and Plan Mr. Berry is a 61 year old male here for increasing sob and edema over the past couple of weeks. Acute on Chronic Respiratory Failure 2/2 Diastolic CHF/Cor Pulmonale and Possible Mild COPD Exacerbation: -Patient not read to go yet as he is not at baseline and continues to be very negative. -despite overly diuresing patient, he is not bumping his creatinine. will continue -yesterday discussed with patient at length of his chronic condition -patient will like to see public health physician as a outpatient. -he will try to improve diet. -In regards to his BIPAP, he did not qualify. - Currently on 6 L, Baseline is 4L, continue to get patient qualified for home BiPAP - patient dropping SaO2 in 70s at night - Levaquin 500 mg po daily - Surprisingly, patient's lung exam was largely benign and is moving good air today without wheezing but O2 at rest still around 85% during my exam - will continue to monitor off steroids - Pulmonology following - appreciate recommendations - discussed with Dr. Coats - continue to optimize chronic conditions and recommending home CPAP/BiPAP -- Recommending SaO2 between 88-92% and to avoid over oxygenation Acute on Chronic Diastolic CHF and Pulm HTN: - Echo with grade II diastolic dysfunction; EF 55-60% and elevated R systolic pressures - Lasix 40 mg IV BID, may give an extra dose of lasix - Cardiology following - appreciate recommendations - continue diuresis and monitoring of kidney function HTN: - Norvasc 10 mg daily (consideration for reduction due to edema) Lower Extremity Wounds: - Hold Keflex while utilizing Levaquin - continue dressing changes and consult wound DVT Prophylaxis: Lovenox Disposition: Appreciate case management assistance with obtaining BiPAP - will reattempt overnight oximetry and ABG -- Trilogy with significant co-pays and will continue to try and obtain BiPAP for him as concern given pulmonary HTN that this patient will continue to deteriorate from a respiratory standpoint without this intervention. Continued [facility] stay due to: multiple IV medications needed Discharge planning: home Continued [facility] stay due to: multiple IV medications needed Discharge planning: home
[2017-03-11] MEDS ORDERED: POTASSIUM CHLORIDE 20 MEQ TABCR PO ONE (11:45)
[2017-03-11] MEDS ORDERED: FUROSEMIDE INJ 40 MG in SYRINGE 0 ML IV ONE (11:45)
[2017-03-11] MEDS: LEVOFLOXACIN 500 MG TAB PO SCH (12:23)
--- NOTE | 2017-03-11 12:46 | NUR ---
called report to receiving RN. all questions answered. Patient to be transferred to room 405, declined for family to be called to notify at this time. Patient transferred with chart, meds and all belongings.
--- NOTE | 2017-03-11 13:07 | NUR ---
A: Pt arrived to room via wheelchair. Alert and oriented x4. Vss. No complaints. Oriented to call green and room. Call green within reach. Encouraged to ring for assistance. Will continue to monitor.
--- NOTE | 2017-03-11 15:04 | Pulmonology Progress Note ---
Pulmonary Progress Note Date of Service Mar 11, 2017. Attending Dr. Coats Subjective Patient seen and examined. No longer on telemetry. Transferred to the 4th floor. He is about of bed to chair. He has no complaints other than mild sore throat. He denies any chest pain, cough, shortness of breath at rest. Objective VS reviewed. MAXIMUM TEMPERATURE 36.5, blood pressure 118/66-139/81, pulse 68- 88, respiratory rate 16-22, pulse oximetry 86-91% on 6 L nasal cannula. He was also intermittently on BiPAP 50%. 5L negative since admission. Gen: AAOx3, NAD, Speaking in full sentences, no respiratory distress. CVS: S1, S2, RRR Lungs: Decreased breath sound bilaterally, no crackles, no wheezing Abd: soft/NT/ND/BS+ Ext: trace edema, chronic venous changes, with bilateral dressings in place. No cyanosis, no clubbing Labs reviewed. Imaging reviewed. Medications reviewed. CT chest 03/10/2017 IMPRESSION: 1. No evidence for pulmonary embolus. 2. Cirrhotic liver with a small to moderate amount of ascites. 3. Possible 2 cm hypodense lesion within the right hepatic dome. Follow-up nonemergent liver MRI is recommended for further evaluation. 4. No significant change in the mediastinal, hilar, periportal lymphadenopathy. 5. Diffuse interstitial thickening remains unchanged. Therefore, this is consistent with a chronic interstitial lung disease. 6. Emphysema. 7. No change in the pulmonary arterial hypertension. ABG 7.41/46/54/29/84.5% on 6 L. Sputum cultures--normal sugey Assessment & Plan Morbid obesity Acute on chronic hypoxic respiratory failure Mild COPD with bronchitis Elevated right heart pressures with cor pulmonale Diastolic dysfunction Possible obesity hyperventilation syndrome Obstructive sleep apnea Cirrhosis Epistasis--resolved Patient has persistent hypoxia despite oxygenation. He had episode of profound hypoxemia during sleep. He likely has underlying obesity hypoventilation syndrome and has a previous diagnosis of TERRELL. TTE done 03/08/2017 is consistent with grade II diastolic dysfunction and pulmonary hypertension with estimated pressures > 60 mmHg. LV systolic function is normal with EF 55-60%. Nocturnal oximetry still shows desaturation, however he does not qualify for BIPAP. Recommendations Continue with supplemental oxygenation to maintain SaO2 between 88-92%. He is currently on 6L/min. Titrate as tolerated Continue with BIPAP at night. He should have outpatient polysomnography to accurately diagnose obstructive/central sleep apnea. Continue with Albuterol/ipratropium nebs, Spiriva, and Advair. Continue with nasal saline for nose bleeds. Continue to diurese as his kidney functions tolerates Continue the DVT ppx. Likely require increased amount of oxygen upon hospital discharge. This may be his new baseline. He should follow with Dr. Darden 1-[address] weeks post [address] discharge[address] Dr. Stark will be following him from the pulmonary service as of tomorrow. Data Medications: Current Inpatient Medications Medications (Trade) Dose Ordered Sig/González Route Start Time Stop Time Status Last Admin Dose Admin Acetaminophen (Tylenol Tab) 650 mg Q4H PRN PO 03/07/17 19:30 04/06/17 19:29 Ondansetron HCl (Zofran Inj) 4 mg Q6H PRN IV 03/07/17 19:30 04/06/17 19:29 Polyethylene (Miralax Powder Packet) 17 gm DAILY PRN PO 03/07/17 19:30 04/06/17 19:29 Amlodipine Besylate (Norvasc Tab) 10 mg QAM PO 03/08/17 09:00 04/07/17 08:59 03/11/17 08:39 10 MG Aspirin (Ecotrin Tab) 81 mg DAILY PO 03/08/17 09:00 04/07/17 08:59 03/11/17 08:39 81 MG Cephalexin Monohydrate (Keflex Cap) 500 mg TID PO 03/07/17 21:00 03/17/17 20:59 Future Hold Salmeterol Xinafoate/ Fluticasone (Advair Diskus 250/50 Inh) 1 puff BID INH 03/07/17 21:00 04/06/17 20:59 03/11/17 08:38 1 PUFF Metoprolol Succinate (Toprol Xl Tab) 50 mg QAM PO 03/08/17 09:00 04/07/17 08:59 03/11/17 08:39 50 MG Multivitamins (Multivitamin Tab) 1 tab QAM PO 03/08/17 09:00 04/07/17 08:59 03/11/17 08:39 1 TAB Spironolactone (Aldactone Tab) 25 mg QAM PO 03/08/17 09:00 04/07/17 08:59 03/11/17 08:39 25 MG Tiotropium [place] (Spiriva Handihaler Inhaler) 1 puff QAM INH 03/08/17 09:00 04/07/17 08:59 03/11/17 08:40 1 PUFF Potassium Chloride (Klor-Con M10) 10 meq QAM PO 03/08/17 09:00 04/07/17 08:59 03/11/17 08:40 10 MEQ Furosemide 40 mg/ Syringe 4 ml @ 4 mls/min Q12H IV 03/08/17 08:00 04/07/17 07:59 03/11/17 08:38 4 MLS/MIN Albuterol/ Ipratropium (Duoneb) 3 ml QIDR INH 03/07/17 20:00 04/06/17 19:59 03/11/17 14:19 3 ML Enoxaparin Sodium (Lovenox Inj) 40 mg QAM SQ 03/08/17 09:00 04/07/17 08:59 03/11/17 08:38 40 MG Methylprednisolone Sodium Succinate 40 mg/Syringe 0.64 ml @ 1.5 mls/min BID IV 03/08/17 09:00 04/07/17 08:59 Future Hold 03/08/17 08:27 1.5 MLS/MIN Dextrose (Dextrose 50% 50ML Syringe) 25-50ML OF 50% DW IV FOR... UD PRN IV 03/07/17 21:15 04/06/17 21:14 Sodium Chloride ([place] Nasal [place]) 2 sprays Q1H PRN NA 03/08/17 11:45 04/07/17 11:44 Levofloxacin (Levaquin Tab) 500 mg DAILY@11 PO 03/09/17 17:00 03/15/17 16:59 03/11/17 12:23 500 MG Ioversol (Optiray 320) 113 ml UD PRN IV 03/10/17 17:00 03/14/17 16:59 I & O: 24-Hour Column 03/12/17 08:00 Intake Total 220 ml Output Total 875 ml Balance -655 ml Vital Signs: Date Time Temp Pulse Resp B/P (MAP) Pulse Ox O2 Delivery O2 Flow Rate FiO2 03/11/17 14:19 76 16 89 Mask 6.0 03/11/17 12:58 36.5 78 20 139/81 (100) 89 Oxymask 6.0 03/11/17 12:00 Oxymask 6.0 03/11/17 11:05 72 16 86 Mask 6.0 03/11/17 08:00 Oxymask 6.0 03/11/17 07:50 36.9 88 22 118/68 (85) 90 03/11/17 07:14 68 16 91 Mask 6.0 03/11/17 04:45 36.8 69 20 118/66 (83) 88 Nasal Cannula 6.0 03/11/17 04:00 Oxymask 6.0 03/10/17 23:59 Oxymask 6.0 03/10/17 23:35 36.8 77 20 117/67 (84) 89 Mask 5.0 03/10/17 20:00 Oxymask 6.0 03/10/17 19:54 36.7 78 22 135/74 (94) 90 Nasal Cannula 6.0 03/10/17 19:20 82 16 90 Mask 6.0 03/10/17 15:46 36.6 81 20 124/73 (90) 90 Oxymask 6.0 03/10/17 15:28 Oxymask 6.0 03/10/17 15:25 84 16 82 Room Air Laboratory Results: Last 24 Hours Test 03/10/17 16:16 03/10/17 20:57 03/11/17 06:03 Bedside Glucose 106 mg/dl 99 mg/dl White Blood Count 7.01 K/uL Red Blood Count 5.09 M/uL Hemoglobin 13.5 g/dL Hematocrit 43.2 % Mean Corpuscular Volume 84.9 fL Mean Corpuscular Hemoglobin 26.5 pg Mean Corpuscular Hemoglobin Concent 31.3 g/dl Platelet Count 190 K/uL Mean Platelet Volume 9.5 fL Neutrophils (%) (Auto) 73.1 % Lymphocytes (%) (Auto) 14.7 % Monocytes (%) (Auto) 10.4 % Eosinophils (%) (Auto) 1.1 % Basophils (%) (Auto) 0.6 % Neutrophils # (Auto) 5.12 K/uL Lymphocytes # (Auto) 1.03 K/uL Monocytes # (Auto) 0.73 K/uL Eosinophils # (Auto) 0.08 K/uL Basophils # (Auto) 0.04 K/uL RDW Standard Deviation 62.1 fL RDW Coefficient of Variation 20.0 % Immature Granulocyte % (Auto) 0.1 % Immature Granulocyte # (Auto) 0.01 K/uL Anisocytosis PRESENT Arterial Blood pH 7.43 Arterial Blood Partial Pressure CO2 47 mmHg Arterial Blood Partial Pressure O2 57 mm/Hg Arterial Blood HCO3 31 mmol/L Arterial Blood Oxygen Saturation 87.9 % Arterial Blood Base Excess 5.2 mEq/L Arterial Blood Gas Delivery 6L Brian Test POS Sodium Level 138 mmol/L Potassium Level 3.6 mmol/L Chloride Level 101 mmol/L Carbon Dioxide Level 32 mmol/L Anion Gap 5.0 mmol/L Blood Urea Nitrogen 26 mg/dl Creatinine 1.05 mg/dl Est Creatinine Clear Calc Drug Dose 89.6 ml/min Estimated GFR () 88.4 Estimated GFR (Non- 76.2 BUN/Creatinine Ratio 24.5 Random Glucose 82 mg/dl Calcium Level 8.6 mg/dl
[2017-03-12] VITALS (7 sets, daily range): BP systolic 118–121; BP diastolic 67–76; PULSE 67–74; TEMP 36.5–36.8; O2SAT 86–90
--- NOTE | 2017-03-12 05:18 | NUR ---
ID: Patient admitted with CHF exacerbation. AAO x4. ON 6L oxymask. O2@ sats 86-92%. Denies pain. Independent with ambulation. Receiving IV Lasix. Dressings changed to BL LE. Discharge plan to home, likely Sunday.
[2017-03-12 06:06] LABS: HEMATOCRIT 44.2 % (42-52); HEMOGLOBIN 13.5 g/dL (14.0-18.0); MEAN CELL VOLUME 85.5 fL (80-100); MEAN CORPUSCULAR HEMOGLOBIN 26.1 pg (25-34); MEAN CORPUSCULAR HGB CONC 30.5 g/dl (32-36); MEAN PLATELET VOLUME 9.6 fL (7.4-10.4); PLATELET COUNT 166 K/uL (130-400); RED CELL DISTRIBUTION WIDTH SD 62.4 fL (36.4-46.3); WHITE BLOOD COUNT 7.24 K/uL (4.8-10.8)
[2017-03-12 06:43] LABS: CALCIUM 8.6 mg/dl (8.5-10.1); CREATININE 1.04 mg/dl (0.60-1.40); POTASSIUM 3.8 mmol/L (3.5-5.1)
[2017-03-12] MEDS: ALBUT/IPRATROP 3MG/0.5MG NEB 3 ML VIAL INH SCH ×4 (07:14→19:15)
[2017-03-12] MEDS: SPIRONOLACTONE 25 MG TAB PO SCH (07:52)
[2017-03-12] MEDS: METOPROLOL SUCC 50MG EXT REL TAB PO SCH (07:52)
[2017-03-12] MEDS: AMLODIPINE BESYLATE 5 MG TAB PO SCH (07:52)
[2017-03-12] MEDS: ASPIRIN 81 MG ECTAB PO SCH (07:52)
[2017-03-12] MEDS: MULTIVITAMIN TAB PO SCH (07:52)
[2017-03-12] MEDS: POTASSIUM CHLORIDE 10 MEQ TABCR PO SCH (07:53)
[2017-03-12] MEDS: TIOTROPIUM BROMIDE 5 PUFF/90 MCG INH INH SCH (07:53)
[2017-03-12] MEDS: FUROSEMIDE INJ 40 MG in SYRINGE 0 ML IV SCH ×2 (07:53→20:15)
[2017-03-12] MEDS: FLUTICASONE/SALMETEROL 250/50 (ADVAIR) 14 PUFF/1 INHALER INH SCH ×2 (07:53→20:15)
[2017-03-12] MEDS: LEVOFLOXACIN 500 MG TAB PO SCH (07:54)
[2017-03-12] MEDS: ENOXAPARIN 40 MG/0.4 ML SYR SQ SCH (08:00)
--- NOTE | 2017-03-12 11:22 | PULMONARY PROGRESS NOTE ---
DATE: 03/12/2017 ATTENDING PHYSICIAN: Dr. Coats. SUBJECTIVE: The patient was seen and examined. No sign of any respiratory distress. He is eager to go home. He is out of bed in a chair. His appetite is good. He states that he was admitted several days ago from Dr. Darden's office, extremely dyspneic with poor coloring and feeling poorly with a tremendous amount of weight gain. He had some congestion. He is able to expectorate some phlegm. No hemoptysis. PHYSICAL EXAMINATION: CURRENT VITAL SIGNS: Temperature 36.8, pulse 68 and regular, respiratory rate 20, blood pressure 118/69, O2 sat 88% on 6 liters OxyMask, switched to nasal cannula while eating. SKIN: Severe stasis changes of both lower extremities with chronic discoloration. The patient is bandaged. HEENT: Atraumatic, normocephalic. PERRLA. LUNGS: Scattered rhonchi, otherwise distant P&A. CARDIAC: Regular rate and rhythm. I do not appreciate a gallop. ABDOMEN: Soft, protuberant, active bowel sounds. EXTREMITIES: 2+ pitting edema bilaterally with chronic stasis changes. NEUROLOGIC: No lateralizing signs. IMAGING DATA: CAT scan on March 10 reviewed, no evidence of pulmonary thromboembolic disease. The patient clearly has a cirrhotic liver with ascites, possible 2 cm lesion in the right hepatic dome that will require additional followup. There is no significant mediastinal or hilar lymphadenopathy, diffuse interstitial thickening is seen that appears to be chronic along with emphysema and a suggestion of pulmonary arterial hypertension. LABORATORY DATA: Blood cultures negative. Sputum culture normal sugey. H&H 13.5 and 44.2 with hypochromic microcytic indices, white count 7200. ABGs on 6 liters on admission, pH 7.43, pCO2 of 47, pO2 of 57. Swab for influenza A and B showed RT-PCR negative. The patient was admitted at 122.3 kilograms, is down to 115.3 kilograms. The patient's renal status, BUN 24, creatinine 1.4, has been stable, currently on levofloxacin oral, spironolactone 25 mg daily, Lovenox injection, furosemide 40 mg IV q. 12 hours along with his inhaler regimen and aerosolized bronchodilator. OVERALL ASSESSMENT AND PLAN: The patient is a 61-year-old morbidly obese white male with [id number] hypoxic and hypercapnic respiratory failure, admitted with a mild chronic obstructive pulmonary disease exacerbation with clear evidence of cor pulmonale and cirrhosis with right heart failure and also diastolic dysfunction and probable obesity hypoventilation syndrome/obstructive sleep apnea. Though, the patient has been studied for obstructive sleep apnea or obesity hypoventilation syndrome, but seems to me would benefit from noninvasive positive pressure ventilation in the form of BiPAP or a Trilogy unit at home given his severe pulmonary hypertension and cor pulmonale in addition to chronic hypercarbia. He has very high O2 requirements at 6 liters and I would continue BiPAP here at night, but consider a unit for home use once patient has been studied and would continue diuresis for at least another 24 hours as patient's renal status appears to be tolerating the q. 12-hour IV Lasix dosage and still appears to be volume overloaded and could tolerate additional diuresis.
[2017-03-12] MEDS ORDERED: FUROSEMIDE INJ 20 MG in SYRINGE 0 ML IV ONE (15:45)
--- NOTE | 2017-03-12 22:11 | Progress Note ---
Subjective Date of Service: Mar 12, 2017. Subjective Patient reports that his swelling has continued to improve since he has been here. Problem List Medical Problems: (1) CHF exacerbation Status: Acute (2) Hypoxia Status: Acute Review of Systems Constitutional: No fever, No chills Respiratory: No cough Cardiac: No chest pain, No orthopnea Abdomen: No pain, No nausea Psychiatric: No depression symptoms, No anhedonism Skin: No rash, No itch All Other Systems: Reviewed and Negative Medications Current Inpatient Medications Medications (Trade) Dose Ordered Sig/González Route Start Time Stop Time Status Last Admin Dose Admin Acetaminophen (Tylenol Tab) 650 mg Q4H PRN PO 03/07/17 19:30 04/06/17 19:29 Ondansetron HCl (Zofran Inj) 4 mg Q6H PRN IV 03/07/17 19:30 04/06/17 19:29 Polyethylene (Miralax Powder Packet) 17 gm DAILY PRN PO 03/07/17 19:30 04/06/17 19:29 Amlodipine Besylate (Norvasc Tab) 10 mg QAM PO 03/08/17 09:00 04/07/17 08:59 03/13/17 07:43 10 MG Aspirin (Ecotrin Tab) 81 mg DAILY PO 03/08/17 09:00 04/07/17 08:59 03/13/17 07:43 81 MG Cephalexin Monohydrate (Keflex Cap) 500 mg TID PO 03/07/17 21:00 03/17/17 20:59 Future Hold Salmeterol Xinafoate/ Fluticasone (Advair Diskus 250/50 Inh) 1 puff BID INH 03/07/17 21:00 04/06/17 20:59 03/13/17 07:42 1 PUFF Metoprolol Succinate (Toprol Xl Tab) 50 mg QAM PO 03/08/17 09:00 04/07/17 08:59 03/13/17 07:43 50 MG Multivitamins (Multivitamin Tab) 1 tab QAM PO 03/08/17 09:00 04/07/17 08:59 03/13/17 07:43 1 TAB Spironolactone (Aldactone Tab) 25 mg QAM PO 03/08/17 09:00 04/07/17 08:59 03/13/17 07:44 25 MG Tiotropium [place] (Spiriva Handihaler Inhaler) 1 puff QAM INH 03/08/17 09:00 04/07/17 08:59 03/13/17 08:29 1 PUFF Potassium Chloride (Klor-Con M10) 10 meq QAM PO 03/08/17 09:00 04/07/17 08:59 03/13/17 07:44 10 MEQ Furosemide 40 mg/ Syringe 4 ml @ 4 mls/min Q12H IV 03/08/17 08:00 04/07/17 07:59 03/13/17 07:44 4 MLS/MIN Albuterol/ Ipratropium (Duoneb) 3 ml QIDR INH 03/07/17 20:00 04/06/17 19:59 03/13/17 07:20 3 ML Enoxaparin Sodium (Lovenox Inj) 40 mg QAM SQ 03/08/17 09:00 04/07/17 08:59 03/13/17 07:42 40 MG Methylprednisolone Sodium Succinate 40 mg/Syringe 0.64 ml @ 1.5 mls/min BID IV 03/08/17 09:00 04/07/17 08:59 Future Hold 03/08/17 08:27 1.5 MLS/MIN Dextrose (Dextrose 50% 50ML Syringe) 25-50ML OF 50% DW IV FOR... UD PRN IV 03/07/17 21:15 04/06/17 21:14 Sodium Chloride ([place] Nasal [place]) 2 sprays Q1H PRN NA 03/08/17 11:45 04/07/17 11:44 Levofloxacin (Levaquin Tab) 500 mg DAILY@11 PO 03/09/17 17:00 03/15/17 16:59 03/12/17 07:54 500 MG Ioversol (Optiray 320) 113 ml UD PRN IV 03/10/17 17:00 03/14/17 16:59 Objective Vital Signs Date Time Temp Pulse Resp B/P (MAP) Pulse Ox O2 Delivery O2 Flow Rate FiO2 03/12/17 19:16 70 16 90 Mask 6.0 03/12/17 16:00 Oxymask 6.0 03/12/17 15:25 36.5 74 18 121/67 (85) 90 Oxymask 3.5 03/12/17 15:13 73 16 90 Mask 6.0 03/12/17 11:13 67 16 87 Mask 6.0 03/12/17 08:00 Oxymask 6.0 03/12/17 07:31 36.8 68 20 118/69 (85) 87 Oxymask 6.0 03/12/17 07:15 70 16 86 Mask 6.0 03/12/17 00:39 36.7 73 20 121/76 (91) 87 Mask 6.0 03/12/17 00:00 Oxymask 6.0 Physical Exam Comments: General Appearance: no apparent distress, + obese Eyes: sclerae normal ENT: hearing grossly normal Neck: supple, no JVD, trachea midline Respiratory/Chest: lungs clear, no respiratory distress, no accessory muscle use Cardiovascular: regular rate, rhythm, no gallop, no murmur Abdomen: normal bowel sounds, non tender, softer than yesterday Extremities: + swelling (bilateral lower extremities; chronic stasis changes bilaterally; trace pitting edema of bilateral thighs) Neurologic/Psychiatric: alert, oriented x 3 Skin: normal color, warm/dry Laboratory Results Last 24 Hours Test 03/12/17 05:50 White Blood Count 7.24 K/uL Red Blood Count 5.17 M/uL Hemoglobin 13.5 g/dL Hematocrit 44.2 % Mean Corpuscular Volume 85.5 fL Mean Corpuscular Hemoglobin 26.1 pg Mean Corpuscular Hemoglobin Concent 30.5 g/dl RDW Standard Deviation 62.4 fL RDW Coefficient of Variation 20.0 % Platelet Count 166 K/uL Mean Platelet Volume 9.6 fL Sodium Level 139 mmol/L Potassium Level 3.8 mmol/L Chloride Level 99 mmol/L Carbon Dioxide Level 33 mmol/L Anion Gap 7.0 mmol/L Blood Urea Nitrogen 24 mg/dl Creatinine 1.04 mg/dl Est Creatinine Clear Calc Drug Dose 90.5 ml/min Estimated GFR () 89.4 Estimated GFR (Non- 77.1 BUN/Creatinine Ratio 22.9 Random Glucose 77 mg/dl Calcium Level 8.6 mg/dl Assessment and Plan Mr. Berry is a 61 year old male here for increasing sob and edema over the past couple of weeks. Acute on Chronic Respiratory Failure 2/2 Diastolic CHF/Cor Pulmonale and Possible Mild COPD Exacerbation: -Still patient not ready to go yet as he is not at baseline and continues to be very negative. -despite overly diuresing patient, he is not bumping his creatinine. will continue to diurese -On Sunday, discussed with patient at length of his chronic condition -patient will like to see deputy prosecuting attorney as a outpatient. -he will try to improve diet. -In regards to his BIPAP, he did not qualify. - Currently on 6 L, Baseline is 4L, - Levaquin 500 mg po daily - Surprisingly, patient's lung exam was largely benign and is moving good air today without wheezing but O2 at rest still around 85% during my exam - will continue to monitor off steroids - Pulmonology following - appreciate recommendations - discussed with Dr. Coats - continue to optimize chronic conditions and recommending home CPAP/BiPAP -- Recommending SaO2 between 88-92% and to avoid over oxygenation Acute on Chronic Diastolic CHF and Pulm HTN: - Echo with grade II diastolic dysfunction; EF 55-60% and elevated R systolic pressures - Lasix 40 mg IV BID, may give an extra dose of lasix -He has received 120mg of lasix over past 2 days. -Will give him a total of 100mg of lasix today. - Cardiology following - appreciate recommendations - continue diuresis and monitoring of kidney function HTN: - Norvasc 10 mg daily (consideration for reduction due to edema) Lower Extremity Wounds: - Hold Keflex while utilizing Levaquin - continue dressing changes and consult wound DVT Prophylaxis: Lovenox Disposition: Patient does not qualify for bipap. Hoping that once patient has been diuresed, that he can go home. Continued [facility] stay due to: multiple IV medications needed Discharge planning: home
[2017-03-13] VITALS (8 sets, daily range): BP systolic 120–127; BP diastolic 71–75; PULSE 68–88; TEMP 36.4–36.8; O2SAT 84–91
--- NOTE | 2017-03-13 02:06 | NUR ---
ID NOTE: Patient is alert and oriented x 4. BLE has +3 pitting edema. 6L on oxymask at this time. SOB with exertion. Tolerating diet. 1500 mL fluid restriction. Voiding in the urinal. SL'd in the R ac. PVD changes to BLE's. OOB independently. Vital signs stable. Discharge plans are uncertain at this time. Will continue to monitor.
[2017-03-13] MEDS: ALBUT/IPRATROP 3MG/0.5MG NEB 3 ML VIAL INH SCH ×4 (07:20→19:10)
[2017-03-13] MEDS: FLUTICASONE/SALMETEROL 250/50 (ADVAIR) 14 PUFF/1 INHALER INH SCH ×2 (07:42→19:57)
[2017-03-13] MEDS: ENOXAPARIN 40 MG/0.4 ML SYR SQ SCH (07:42)
[2017-03-13] MEDS: ASPIRIN 81 MG ECTAB PO SCH (07:43)
[2017-03-13] MEDS: MULTIVITAMIN TAB PO SCH (07:43)
[2017-03-13] MEDS: METOPROLOL SUCC 50MG EXT REL TAB PO SCH (07:43)
[2017-03-13] MEDS: AMLODIPINE BESYLATE 5 MG TAB PO SCH (07:43)
[2017-03-13] MEDS: POTASSIUM CHLORIDE 10 MEQ TABCR PO SCH (07:44)
[2017-03-13] MEDS: SPIRONOLACTONE 25 MG TAB PO SCH (07:44)
[2017-03-13] MEDS: FUROSEMIDE INJ 40 MG in SYRINGE 0 ML IV SCH ×2 (07:44→19:58)
[2017-03-13] MEDS: TIOTROPIUM BROMIDE 5 PUFF/90 MCG INH INH SCH (08:29)
--- NOTE | 2017-03-13 08:58 | NUR ---
Case Management: Transferred to [facility]; handoff with unit Emt Driver. Pt is active with [facility] for 4L O2 continuous. Over the holiday a referral was placed with [facility] to qualify pt for BiPAP or trilogy. Pt's ABG CO2 has yet to qualify him for BiPAP but [facility] has told Case Management pt could qualify for trilogy machine. Pt would have a significant cost for trilogy machine and uncertain if pt is agreeable to this option. Repeat ABGs were ordered for this morning. Pt's overnight oximetry was completed 03/10 which is now over 48hrs prior to discharge and may need to be repeated to qualify for BiPAP if ABGs are within qualification range. Case Management to follow. Addendum: 03/13/17 at 1323 by Vonnie Albert SERV Updated patient on bipap/trilogy machine issue and out of pocket cost.
[2017-03-13] MEDS: LEVOFLOXACIN 500 MG TAB PO SCH (10:25)
--- NOTE | 2017-03-13 10:46 | Hospitalist Progress Note ---
Hospitalist Progress Note Date of Service Mar 13, 2017. Subjective Pt evaluation today including: conversation w/ patient Pt feels his breathing is better than on admission. but RN reports attempts to wean him off Oxymask result in hypoxia into the 80s. Cotninues to naresh. Has c /o right medial ankle pain this AM with no specific injury, feels like it is sprained. Is tired of getting poked and prodded All Other Systems: Reviewed and Negative Objective Vital Signs Date Time Temp Pulse Resp B/P (MAP) Pulse Ox O2 Delivery O2 Flow Rate FiO2 03/13/17 07:45 Oxymask 6.0 03/13/17 07:24 36.6 70 20 120/71 (87) 90 Nasal Cannula 4.0 03/13/17 07:20 88 16 86 Nasal Cannula 4.0 03/13/17 00:54 Oxymask 6.0 03/13/17 00:14 36.5 68 18 125/75 (92) 91 Oxymask 6.0 03/12/17 19:16 70 16 90 Mask 6.0 03/12/17 16:00 Oxymask 6.0 03/12/17 15:25 36.5 74 18 121/67 (85) 90 Oxymask 3.5 03/12/17 15:13 73 16 90 Mask 6.0 03/12/17 11:13 67 16 87 Mask 6.0 Physical Exam General Appearance: no apparent distress, + obese (lying in flat in bed without distress) Eyes: normal inspection, sclerae normal ENT: hearing grossly normal, pharynx normal Neck: trachea midline Respiratory/Chest: no respiratory distress, no accessory muscle use, + decreased breath sounds (at bases but overall much improved and clear throughout than when I examined him on day of admission) Cardiovascular: regular rate, rhythm, + pertinent finding (2+ pitting woody edema and chronic venous stasis changes of legs bilat) Abdomen: normal bowel sounds, non tender, soft (an dobese) Extremities: + pertinent finding (+exquisite tenderness to palpation over medial malleolus with mild erythema and warmth, normal ROM) Neurologic/Psychiatric: alert, normal mood/affect, oriented x 3 Skin: + pertinent finding (distal legs with bilat dressings in place over wounds wit only minimal serous drainage) Laboratory Results Last 24 Hours Test 03/13/17 09:40 Arterial Blood pH 7.45 Arterial Blood Partial Pressure CO2 47 mmHg Arterial Blood Partial Pressure O2 49 mm/Hg Arterial Blood HCO3 32 mmol/L Arterial Blood Oxygen Saturation 83.0 % Arterial Blood Base Excess 7.0 mEq/L Arterial Blood Gas Delivery 6 L Brian Test POS Assessment and Plan Patient is a 61-year-old male with a history of COPD, chronic hypoxemic respiratory failure, hepatitis C which has been treated, cirrhosis, suspected severe pulmonary hypertension, gout, peripheral arterial disease, colon polyp, peripheral edema, and diabetes mellitus type 2, who 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 Acute on chronic hypoxemic and hypercapnic resp failure/Severe PHTN and cor pulmonale/Cirrhosis/Right heart failure/Acute on chronic diastolic CHF/Mild COPD Exacerbation/Probable TERRELL/OHS-Overall improving with aggressive diuresis (- 10L so far, -13kg), intermittent BiPAP. Possibly will qualify for Trilogy at home, but not for BiPAP as PaCO2 not >52 Was initially treated with IV steroids for COPD exacerbation but then stopped. Remains on Levaquin for Acute bronchitis and possible PNA seen on admission CXR , but CTA CHest on 03/10 shows no PNA ECHO with grade 2 diastolic dysfunction, dilated RV with normal function, normal LVEF, significantly elevated right sided pressures suggesting severe PHTN. Abd US shows mild-mod 4 quadrant ascites Troponin neg x 2 -continue IV lasix 40mg IV bid and convert to po lasix likely 60mg bid on discharge possibly tomorrow -continue daily spironolactone -dc Levaquin after today's dose for total 7 days -repeat overnight oximetry tonight as previous one , attempt to get Trilogy for home use -Appreciate Cardio and Pulm consultations-will need outpt f/u with both -will decrease dose of amlodipine to 7.5mg daily which may be contributing to his lower extremity edema -follow renal function -continue fluid restriction and low Na+ diet, consult coater operator insulation board PAD-stable -continue ASA Cirrhosis, ascites/2 cm lesion right hepatic dome on CT Abd seen-synthetic function ok here -recommend f/u with GI outpt -Needs outpt MRI Liver to further evaluate 2 cm liver lesion-needs surveillance for HCC given h/o Hep C -may need surveillance EGD if has not already had for varices Prediabetes with hyperglycemia secondary to corticosteroids- HgbA1C 5.7% in 2016 - holding metformin COPD-improved - QID duonebs - continue Spiriva, Advair LE wounds-stable - hold Keflex while receiving Levaquin - wound culture shows susceptibility to Levaquin - continue daily dressing change with Aquacel - consult wound care appreciated -hold off on abx further for now HTN-well controlled - continue metoprolol, lowering dose of amlodipine to 7.5 Right ankle pain-suspect gout given his history of this -prednisone 20mg po daily x 5 days -check xray ankle Proph -Lovenox for DVT prophylaxis Dispo- to home in 1-2 days with Trilogy and HH
--- NOTE | 2017-03-13 11:06 | DIAGNOSTIC IMAGING REPORT ---
R ANKLE MIN 3 VIEWS ROUTINE CLINICAL HISTORY: acute right medial ankle pain,suspect gout pain COMPARISON: None. DISCUSSION: Moderate nonspecific generalized soft tissue edema. Sclerotic lesion distal tibia felt to represent a nonossifying fibroma and/or and chondroma. Small heel spur. No evidence for fracture or acute bony and amount. IMPRESSION: Nonspecific generalized soft tissue edema. No acute bony abnormality. Benign sclerotic lesion of the distal tibia. Small heel spur. The above report was generated using voice recognition software. It may contain grammatical, syntax or spelling errors. Electronically signed by: Nathan Murdock M.D. 03/13/2017 11:05 AM Dictated Date/Time: 03/13/2017 11:03 AM
--- NOTE | 2017-03-13 12:57 | PULMONARY PROGRESS NOTE ---
DATE: 03/13/2017 PROBLEM LIST: Includes: 1. Acute on chronic hypoxic and hypercapnic respiratory failure. 2. Mild chronic obstructive pulmonary disease exacerbation. 3. Decompensation of his cor pulmonale. 4. Decompensation of right heart failure. 5. Cirrhosis. 6. Probable obesity hypoventilation syndrome. SUBJECTIVE: The patient reports that he continues to show signs of improvement. He feels that his breathing continues to slowly improve. He states that he is still using the BIPAP at night, nursing confirms this. His CO2 has not been low enough for him to qualify for this at home. Therefore, after discussing with the hospitalist, he is in the process of being set up with a Trilogy which I believe will help him and give him the ventilatory support that he needs. He continues to be diuresed and continues to have a negative fluid balance. Since admission, he diuresed about 13 kilograms. When discussed with the patient, he feels that his breathing is doing well and he feels better than he did on admission, he is not quite back to his baseline, does have an occasional cough which he states he forceps himself to cough. He has no significant mucous production, although he feels like there may be some mucus in his chest that he tries to clear out. No wheezing, no chest heaviness or tightness. He denies any chest pain, no palpitations, no angina and no radiation of discomfort. No fever or chills. No sweats. Appetite is normal, no nausea or vomiting. He has not had any difficulty with diarrhea. Continues to have swelling in the legs, but this is improving, does have some open areas on the legs that are being dressed routinely. OBJECTIVE: GENERAL: The patient is a 61-year-old male, sitting in bedside, does have OxyMask on. He is alert and oriented x3. Mood is cooperative. Affect is good. VITAL SIGNS: Temp 36.6, pulse 70, respirations 20, blood pressure is 120/71, and pulse ox is 90% on 6 liters via OxyMask. HEENT: Normocephalic, atraumatic. Pupils equal and reactive to light and accommodation. Extraocular movements are intact. No lid lag or nystagmus. Eyes are nonicteric. [place], moist gingival and buccal mucosa. NECK: Short and thick No masses or adenopathy. No appreciated bruits. CHEST: Very diminished breath sounds bilaterally. No appreciated wheeze at this time. The patient does have some faint bibasilar rales. CARDIOVASCULAR: Regular rate and rhythm. No murmurs, gallops or rubs noted. ABDOMEN: Obese, bowel sounds are present. Abdomen soft, nontender. No guarding, rigidity or organomegaly. EXTREMITIES: Chronic venous stasis changes bilaterally. The patient does have several open areas, nurse was actually dressing these areas while I was in the room with the patient. The patient is still with 2+ pitting edema bilaterally. No tenderness to palpation. NEUROLOGIC: Cranial nerves II-XII grossly intact. No focal deficit noted. IMPRESSION AND PLAN: This is a 61-year-old male with acute on chronic hypoxic hypercapnic respiratory failure, who has been showing some slow improvement. The patient also admitted with mild chronic obstructive pulmonary disease exacerbation as well as cor pulmonale and right-sided heart failure. The patient has continued to receive diuresis and has lost 13 kilograms since admission and is slowly improving. I was able to touch base with Dr. Bojorquez from the hospitalist service and she informed me that case management is working on getting the patient set up for a Trilogy. At this point, recommend to continue diuresis in the form of IV Lasix, continue the q. 12 dosage, as patient tolerates. Continue pulmonary toilet and steroid as the patient currently is on 20 mg of prednisone and will continue this. The patient has been on levofloxacin started on the , would continue for a total of 7 days. He is receiving DuoNeb regularly q.i.d., would recommend this to be continued as well. At this point, will reevaluate the patient in the morning to see how he is doing. RUSTY
--- NOTE | 2017-03-13 14:01 | NUR ---
HELLEN follow-up. Full assessment in EMR, see linked note for details. Level of care II. Addendum: 03/13/17 at [address] Amended: Links added. Addendum: 03/13/17 at [address] Consult received for CHF counseling. Diet hx reviewed. Pt typically eats a muffin & drinks 2 cups of coffee @ B; he only eats one other meal for the day which is high in Na+ (i.e. [employer] frozen meal, [employer] canned beef w/noodles, canned soup or microwave popcorn). He will also eat out once/week at either [employer] ([employer]) or [employer] (mult. slices of pizza). He drinks a 16 oz bottle of cola every day & takes sips of H2O "when my throat gets dry." He does not have a scale, but is willing to purchase one for daily weighing. CHF Diet education provided - pt verbalized understanding, however stated "I am gonna have to eat high Na+ foods for a while to get rid of the foods in my house." RD explained that this is of course his choice, however the consequences of continuing a high Na+ diet will be further fluid retention, wt gain, SOB, etc. RD provided the handout "Heart Failure Nutrition Therapy" from the [facility] manual along with contact info if questions/concerns should arise. Pt may benefit from outpatient MNT for ongoing diet education. RD also discussed fluid restriction & handout provided (currently on 1.5 L fluid Rx/day ~ 50 oz or 6 1/4 cups). Additionally, pt was encouraged to consume adequate protein @ all of his meals (his dietary protein intake is suboptimal which likely further exacerbates his fluid retention) as his needs are elevated to support wound healing (pt willing to consume 2 eggs @ B, PB on toast, milk w/cold cereal; a tuna sandwich for lunch w/neli. milk & an apple; A frozen entree is acceptable @ dinner if < 300 mg Na+/serving w/steamed veggies (frozen w/o sauce). He was also encouraged to consume foods rich in Vitamin C and Zn to support healing (handout provided). He was encouraged to decrease portion sizes of high Na+ foods when eating out & replace them with lower Na+ alternatives. Pt voiced interest in MOW though ? able to qualify given that he is not homebound, however is chronically ill with nutrient inadequacies. Will continue to monitor & reinforce diet education PRN.
--- NOTE | 2017-03-13 14:14 | Cardiology Follow-Up ---
Subjective Date of Service: Mar 13, 2017. Pt evaluation today including: conversation w/ patient, physical exam, chart review, lab review, review of studies, review of inpatient medication list, conversation w/ attending History of Present Illness Patient was seen in room 405 this morning. He is resting comfortably and has no acute complaints. He has had significant diuresis. He reports significant improvement in his dyspnea and edema since admission. He denies dyspnea at rest and has not been doing much ambulation. He cannot sleep on his back due to orthopnea. Last night he slept comfortably on one pillow on his side. He denies paroxysmal nocturnal dyspnea. He denies chest pain, palpitations, lightheadedness, presyncope or syncope. He admits at home his diet is high in sodium. Most of his meals are frozen dinners. He does not weigh himself at home. The remainder of his review of systems is unremarkable. Social History Smoking Status: Former Smoker History of Alcohol Use: Yes (beer 6/week) Objective Vital Signs Past 12 Hours Date Time Temp Pulse Resp B/P (MAP) Pulse Ox O2 Delivery O2 Flow Rate FiO2 03/13/17 07:45 Oxymask 6.0 03/13/17 07:24 36.6 70 20 120/71 (87) 90 Nasal Cannula 4.0 03/13/17 07:20 88 16 86 Nasal Cannula 4.0 03/13/17 00:54 Oxymask 6.0 03/13/17 00:14 36.5 68 18 125/75 (92) 91 Oxymask 6.0 Last Recorded Weight-Kilograms: 109.600 Intake & Output Negative 10 L Physical Exam General: Patient alert and oriented. No acute distress. Pulse ox 90% on Oxymax 6L O2. HEENT: Head is normal. PERRLA. Sclera anicteric. Ears, nose and throat unremarkable. Neck: No appreciable JVD but neck is thick making exam difficult. No carotid bruit. Lungs: Decreased breath sounds throughout, no rales, rhonchi or wheezes. Cardiac: Regular rate and rhythm. S1 and S2 normal. No appreciable murmur, gallop or rub. Extremities: 2+ pitting edema to the knees bilaterally. Bilateral lower extremity skin wounds dressed. Skin: No rash. Dressed LE wounds. Neurologic: No lateralizing changes. Psychiatric: Affect seems appropriate. Data Laboratory Results: Last 24 Hours Test 03/13/17 09:40 Arterial Blood pH 7.45 Arterial Blood Partial Pressure CO2 47 mmHg Arterial Blood Partial Pressure O2 49 mm/Hg Arterial Blood HCO3 32 mmol/L Arterial Blood Oxygen Saturation 83.0 % Arterial Blood Base Excess 7.0 mEq/L Arterial Blood Gas Delivery 6 L Brian Test POS Echocardiogram: Technically limited study. Normal LV function. Diastolic dysfunction, grade II, consistent with elevated left atrial pressure. Right ventricle is moderate to severely dilated. Right ventricular systolic function is normal as assessed by tricuspid annular plane systolic excursion (TAPSE) ( normal >1.5 cm). Borderline left atrial enlargement. The right atrium is moderately dilated. There is mild mitral annular calcification. Right ventricular systolic pressure is elevated at >60mmHg. Compared to study performed in 01/2013, the right ventricle appears more dilated. Chest CTA: No evidence for pulmonary embolus.Cirrhotic liver with a small to moderate amount of ascites. Possible 2 cm hypodense lesion within the right hepatic dome. Follow-up nonemergent liver MRI is recommended for further evaluation. No significant change in the mediastinal, hilar, periportal lymphadenopathy. Diffuse interstitial thickening remains unchanged. Therefore, this is consistent with a chronic interstitial lung disease. Emphysema. No change in the pulmonary arterial hypertension. Assessment and Plan 1. Acute right sided and diastolic CHF: Significant improvement in volume status with aggressive intravenous diuresis. He is negative 10 L and weight is down about 13 kg. His renal function remains stable. He still appears mildly hypervolemic. Agree with continued diuresis with close monitoring of BMP and strict I&Os. Will need to be discharged on oral Lasix with close heart failure followup. Recommend daily weights. Low sodium diet recommended. Patient's current diet is high in sodium and he will be seeing a access rep for assistance. 2. Pulmonary hypertension/chronic lung disease with respiratory failure: Per pulmonary team. Patient will be need followup in Heart Failure clinic after discharge.
--- NOTE | 2017-03-13 21:34 | NUR ---
RC: Pt placed on Overnight pulse ox. Pt's O2 sat was 86% on 6L oxymask prior to placement of the overnight pulse ox. The patient was left on the 6L Oxymask for the duration of the study. It was placed on the Left ring finger at 2130
[2017-03-14] VITALS (10 sets, daily range): BP systolic 122–137; BP diastolic 68–77; PULSE 62–87; TEMP 36.3–36.6; O2SAT 86–92
--- NOTE | 2017-03-14 03:26 | NUR ---
ID: A/O X 3 - SITTING IN CHAIR TO SLEEP - EASIER TO BREATH - VSS - HL - 02 6L OXY MASK - LUNGS DIMINISHED - BS+ - ABDOMEN ROUND - NO BM THIS SHIFT - 1500 CC FLUID RESTRICTION MAINTAINED - VOIDS IN URINAL - BL LE PVD +2-3 EDEMA - SITS IN CHAIR - BL LE DRESSING C/D/I - INDEPENDENT IN ROOM - DENIES PAIN - D/C UNCERTAIN
[2017-03-14 06:01] LABS: BASO % 0.2 %; BASO ABS # 0.02 K/uL (0-0.2); EOS % 0.8 %; EOS ABS # 0.07 K/uL (0-0.5); HEMOGLOBIN 12.8 g/dL (14.0-18.0); IG# 0.03 K/uL (0.00-0.02); LYMPH % 11.3 %; MEAN CELL VOLUME 83.5 fL (80-100); MEAN CORPUSCULAR HEMOGLOBIN 26.1 pg (25-34); MEAN CORPUSCULAR HGB CONC 31.2 g/dl (32-36); MEAN PLATELET VOLUME 9.7 fL (7.4-10.4); MONO ABS # 0.62 K/uL (0.11-0.59); NEUT % 80.4 %; NEUT ABS # 7.12 K/uL (1.4-6.5); PLATELET COUNT 153 K/uL (130-400); RED CELL DISTRIBUTION WIDTH CV 19.4 % (11.5-14.5); RED CELL DISTRIBUTION WIDTH SD 59.3 fL (36.4-46.3); WHITE BLOOD COUNT 8.86 K/uL (4.8-10.8)
[2017-03-14 06:34] LABS: CALCIUM 8.7 mg/dl (8.5-10.1); CREATININE 1.1 mg/dl (0.60-1.40); POTASSIUM 3.6 mmol/L (3.5-5.1)
[2017-03-14] MEDS: ALBUT/IPRATROP 3MG/0.5MG NEB 3 ML VIAL INH SCH ×4 (07:07→18:54)
[2017-03-14] MEDS: FLUTICASONE/SALMETEROL 250/50 (ADVAIR) 14 PUFF/1 INHALER INH SCH ×2 (08:18→20:58)
[2017-03-14] MEDS: SPIRONOLACTONE 25 MG TAB PO SCH (08:18)
[2017-03-14] MEDS: TIOTROPIUM BROMIDE 5 PUFF/90 MCG INH INH SCH (08:18)
[2017-03-14] MEDS: FUROSEMIDE INJ 40 MG in SYRINGE 0 ML IV SCH ×2 (08:18→20:58)
[2017-03-14] MEDS: POTASSIUM CHLORIDE 10 MEQ TABCR PO SCH (08:19)
[2017-03-14] MEDS: ASPIRIN 81 MG ECTAB PO SCH (08:19)
[2017-03-14] MEDS: MULTIVITAMIN TAB PO SCH (08:19)
[2017-03-14] MEDS: AMLODIPINE BESYLATE 5 MG TAB PO SCH (08:19)
[2017-03-14] MEDS: METOPROLOL SUCC 50MG EXT REL TAB PO SCH (08:20)
[2017-03-14] MEDS: ENOXAPARIN 40 MG/0.4 ML SYR SQ SCH (08:21)
--- NOTE | 2017-03-14 09:18 | CARDIOLOGY PROGRESS NOTE ---
DATE: 03/14/2017 DATE: 03/14/2017 SUBJECTIVE: Mr. Berry is resting comfortably in bedside chair without complaints of chest pain or dyspnea. We have discussed outpatient management of his volume status. Specifically, we have discussed daily weights and sliding scale diuretics. OBJECTIVE: VITAL SIGNS: Blood pressure is 137/77 with a regular pulse of 73. Respiratory rate is 20. The patient is afebrile at 36.3 degrees Celsius. Saturations 89% on 6 liters nasal cannula. NECK: Supple with full carotid upstrokes. There are no carotid bruits. Jugular venous pressure is difficult to assess. CARDIOVASCULAR EXAMINATION: Reveals a regular rhythm with a normal S1 and S2. Heart sounds are distant. No obvious murmurs. LUNGS: Clear without rales, rhonchi, or wheezes. ABDOMEN: Obese without bruits. EXTREMITIES: Reveal intact radial artery pulses bilaterally. 2+ pretibial edema is noted. LABORATORY DATA: CBC notes hemoglobin 12.8, hematocrit 41.0, white count 8.8, platelet count 153,000. Electrolytes note a sodium of 135, potassium 3.6, chloride 99, bicarbonate 30, BUN 26, creatinine 1.1, glucose 78. IMPRESSION AND PLAN: 1. Acute decompensated right-sided end diastolic congestive heart failure -- patient has diuresed well and has dramatically improved. As above, we have discussed the importance of daily weights and sliding scale diuretics as an outpatient. 2. Presumed cor pulmonale, -- likely secondary to chronic respiratory failure from his severe chronic obstructive pulmonary disease/emphysema. 3. Chronic respiratory failure. 4. Pulmonary hypertension. 5. Peripheral vascular disease. 6. Cirrhosis. 7. Diabetes mellitus. 8. Villous adenoma -- January 2017 colonoscopy. Surgery planned but not yet scheduled.
--- NOTE | 2017-03-14 11:41 | PULMONARY PROGRESS NOTE ---
DATE: 03/14/2017 PROBLEM LIST: Includes: 1. Acute on chronic hypoxic and hypercapnic respiratory failure. 2. Chronic obstructive pulmonary disease exacerbation. 3. Decompensation of cor pulmonale. 4. Decompensation of right heart failure. 5. Psoriasis. 6. Probable obesity hypoventilation syndrome. SUBJECTIVE: The patient reports that from a pulmonary standpoint, he continues to feel better. Unfortunately, he still carries a high oxygen demand with saturations dipping down into the mid to low 80s overnight even with an OxyMask on 6 liters. Apparently, case management has been working to get him a Trilogy. Unfortunately, the cost is going to be prohibitive for him at this time. We will need to see if we can find some way to get him either Trilogy or BiPAP. This would provide him with some ventilatory support and hopefully be able to decrease his oxygen demand. Otherwise, he denies any other difficulties. He denies any chest pain or pressure, no pleuritic chest pain. He has not noticed any wheezing. He has not had any significant cough or congestion. No chest heaviness or tightness. He has not had any cardiac symptoms. No angina. No palpitations. He has not had any GI difficulty. No nausea or vomiting, no indigestion or heartburn. His bowels have been working, although he did not have a bowel movement yesterday. He continues to have difficulty with edema in his legs. He continues to have open areas that are wrapped by wound management. Currently, he continues on 20 mg of prednisone daily. He continues on Spiriva daily. He is also on Advair twice daily and DuoNeb 4 times daily routinely as needed. OBJECTIVE: GENERAL: The patient is a 61-year-old male lying in bed. When I saw him today, he was woken easily, interactive and cooperative. VITAL SIGNS: Temperature 36.3, pulse 73, respirations 20, blood pressure is 137/77, pulse ox 89-90% on 6 liters via OxyMask. HEENT: Normocephalic, atraumatic. Pupils are equal, round and reactive to light and accommodation. Extraocular movements are intact. [place] moist gingival and buccal mucosa. NECK: Thick, short. No mass. No adenopathy. No bruit. CHEST: Today, he is actually very clear. I did not hear any wheeze, rales or rhonchi noted. He has good air movement throughout. CARDIOVASCULAR: Regular rate and rhythm. No appreciated murmurs, gallops or rubs noted. ABDOMEN: Obese, bowel sounds are present. Abdomen soft, nontender. No guarding, rigidity or organomegaly. EXTREMITIES: The patient has 2+ pitting edema bilaterally. The patient has several areas wrapped on his legs. NEUROLOGIC: Cranial nerves II through XII are intact. No focal deficit noted. LABORATORY DATA: Shows white count of 8000, H&H 12.8 and 41.0, and platelet count 153,000. BUN has remained stable at 26, creatinine has bumped slightly to 1.1 from 1.04. IMAGING DATA: No new imaging data. IMPRESSION: This is a 61-year-old male with severe chronic obstructive pulmonary disease who presented with exacerbation as well as acute on chronic hypoxic and hypercapnic respiratory failure. We have been trying to get the patient some type of pressure pressures in the form of BiPAP or Trilogy, unfortunately he is not going to be able to afford Trilogy. In reviewing the chart, the patient did have an overnight oximeter done while he was on oxygen at 6 liters last night. The overnight oximeter report done last night did show #49 events where he did desaturate with an adjusted index of 6.2 per hour with a baseline O2 of 85.2. He spent 434 minutes below 88% even with OxyMask on 6 liters. The patient had a total of 49 events where he dropped below 88%. At this point, his oxygen saturation is preventing him from really being discharged to home while the rest of the status looks pretty good. He does continue to diurese and he has continued to have a negative fluid balance with his current dose For now, will continue current pulmonary regimen and diuresis. Will discuss with Dr. Darden about if there is any other possibility of getting the hospital some type of ventilatory support, at home. I am not convinced that this is strictly pulmonary. RUSTY
--- NOTE | 2017-03-14 12:16 | NUR ---
Case Management- Pt remains acute at this time, has home O2 in place through [facility]. Thus far he has not met criteria for Bipap. Met with pt to discuss possible needs, he feels he is doing well and will be able to return home without additional services at discharge. Will continue to follow. Addendum: 03/14/17 at 1535 by Meryl Wise SERV Call from [facility] Fletcher they found a way to qualify pt for Bipap. Information provided to DELVIN Newsome is also recommending a script at discharge for over hs pox.
--- NOTE | 2017-03-14 14:51 | Hospitalist Progress Note ---
Hospitalist Progress Note Date of Service Mar 14, 2017. Subjective Pt evaluation today including: conversation w/ patient, conversation w/ family (sister in room), conversation w/ clothing consultant (Pulm) Pt reports breathing is stable. He contines to desat below 88% with using NC or Oxymask at 6L. Pulm reports last night's overnight oximetry showed 49 desaturation events and was <88% for 434 minutes. Pt denies any other problems. Rt ankle pain is much improved since starting prednisone. He states the Trilogy would be $3000 out of pocket and he cannot afford that. All Other Systems: Reviewed and Negative Objective Vital Signs Date Time Temp Pulse Resp B/P (MAP) Pulse Ox O2 Delivery O2 Flow Rate FiO2 03/14/17 11:27 67 16 88 Mask 6.0 03/14/17 11:10 88 03/14/17 11:04 Nasal Cannula 6.0 03/14/17 07:35 36.3 73 20 137/77 (97) 89 Nasal Cannula 6.0 03/14/17 07:07 65 16 89 Mask 6.0 03/14/17 05:40 62 16 86 Mask 6.0 03/14/17 00:15 90 Mask 6.0 03/13/17 22:44 36.4 87 20 127/74 (91) 90 Nasal Cannula 6.0 03/13/17 19:11 82 16 86 Mask 6.0 03/13/17 16:12 74 16 89 Mask 6.0 03/13/17 16:00 Oxymask 6.0 03/13/17 15:12 36.8 78 20 127/72 (90) 90 Nasal Cannula 4.0 Physical Exam General Appearance: no apparent distress, + obese (sitting in chair) Eyes: normal inspection, sclerae normal ENT: hearing grossly normal Neck: trachea midline Respiratory/Chest: no respiratory distress, no accessory muscle use, + crackles (faint at bases bilat, otherwise fairly clear) Cardiovascular: regular rate, rhythm, no murmur, + pertinent finding (2+ pitting woody edema to knees bilat) Abdomen: normal bowel sounds, non tender, soft Extremities: no calf tenderness Neurologic/Psychiatric: alert, normal mood/affect, oriented x 3 Skin: + pertinent finding (legs with chronic venous stasis changes, wounds dressed a c/d/i, not removed today) Laboratory Results Last 24 Hours Test 03/14/17 05:26 White Blood Count 8.86 K/uL Red Blood Count 4.91 M/uL Hemoglobin 12.8 g/dL Hematocrit 41.0 % Mean Corpuscular Volume 83.5 fL Mean Corpuscular Hemoglobin 26.1 pg Mean Corpuscular Hemoglobin Concent 31.2 g/dl Platelet Count 153 K/uL Mean Platelet Volume 9.7 fL Neutrophils (%) (Auto) 80.4 % Lymphocytes (%) (Auto) 11.3 % Monocytes (%) (Auto) 7.0 % Eosinophils (%) (Auto) 0.8 % Basophils (%) (Auto) 0.2 % Neutrophils # (Auto) 7.12 K/uL Lymphocytes # (Auto) 1.00 K/uL Monocytes # (Auto) 0.62 K/uL Eosinophils # (Auto) 0.07 K/uL Basophils # (Auto) 0.02 K/uL RDW Standard Deviation 59.3 fL RDW Coefficient of Variation 19.4 % Immature Granulocyte % (Auto) 0.3 % Immature Granulocyte # (Auto) 0.03 K/uL Sodium Level 135 mmol/L Potassium Level 3.6 mmol/L Chloride Level 99 mmol/L Carbon Dioxide Level 30 mmol/L Anion Gap 6.0 mmol/L Blood Urea Nitrogen 26 mg/dl Creatinine 1.10 mg/dl Est Creatinine Clear Calc Drug Dose 83.3 ml/min Estimated GFR () 83.5 Estimated GFR (Non- 72.1 BUN/Creatinine Ratio 23.7 Random Glucose 78 mg/dl Calcium Level 8.7 mg/dl Magnesium Level 2.4 mg/dl Assessment and Plan Patient is a 61-year-old male with a history of COPD, chronic hypoxemic respiratory failure, hepatitis C which has been treated, cirrhosis, suspected severe pulmonary hypertension, gout, peripheral arterial disease, colon polyp, peripheral edema, and diabetes mellitus type 2, 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 Acute on chronic hypoxemic and hypercapnic resp failure/Severe PHTN and cor pulmonale/Cirrhosis/Right heart failure/Acute on chronic diastolic CHF/Mild COPD Exacerbation/Probable TERRELL/OHS-Overall improved with aggressive diuresis (- 11.4L so far, -14kg), intermittent BiPAP and now OxyMask alone. However, still hypoxic < 88% even with Oxymask and/or 6LNC at rest at times. He would qualify for Trilogy at home but cannot afford it;he does not qualify for BiPAP as PaCO2 not >52 Was initially treated with IV steroids for COPD exacerbation but then stopped. Now back on prednisone for gout flare. Treated with Levaquin for Acute bronchitis and possible PNA seen on admission CXR, but CTA CHest on 03/10 shows no PNA-completed course ECHO with grade 2 diastolic dysfunction, dilated RV with normal function, normal LVEF, significantly elevated right sided pressures suggesting severe PHTN. Abd US shows mild-mod 4 quadrant ascites Overnight Oximetry with 434 min spent <88% on OxyMask 6L Troponin neg x 2 -continue IV lasix 40mg IV bid and convert to po lasix likely 60mg bid on discharge for continued diuresis -continue daily spironolactone -will need Oxymask for home use and nocturnal and increase to 7L for overnight, then will need formal Sleep Study arranged as outpt to qualify for CPAP -Appreciate Cardio and Pulm consultations-will need outpt f/u with both - decreased dose of amlodipine to 7.5mg daily which may be contributing to his lower extremity edema -follow renal function -continue fluid restriction and low Na+ diet, consult Legal Instruments Examiner PAD-stable -continue ASA Cirrhosis, ascites/2 cm lesion right hepatic dome on CT Abd seen-synthetic function ok here -recommend f/u with GI outpt -Needs outpt MRI Liver to further evaluate 2 cm liver lesion-needs surveillance for HCC given h/o Hep C -may need surveillance EGD if has not already had for varices Prediabetes with hyperglycemia secondary to corticosteroids- HgbA1C 5.7% in 2016. AM fasting glucose now normal - holding metformin -no need for accuchecks COPD-improved - QID duonebs - continue Spiriva, Advair LE wounds-stable - held Keflex while receiving Levaquin -no further antibiotics at this time - continue daily dressing change with Aquacel - consult wound care appreciated HTN-well controlled - continue metoprolol, lowered dose of amlodipine to 7.5 for LE edema Right ankle pain-suspect gout given his history of this. Much improved after starting prednisone. Rt ankle xray with soft tissue edema but no osseous destruction or fracture -prednisone 20mg po daily x 5 days (today day#2) Proph -Lovenox for DVT prophylaxis Dispo- to home in 1-2 days after further diuresis and improvement in oxygenation
--- NOTE | 2017-03-14 14:58 | DIAGNOSTIC IMAGING REPORT ---
CHEST 2 VIEWS ROUTINE HISTORY: f/u hypoxemia COMPARISON: Chest 03/07/2017. FINDINGS: No change in the diffuse interstitial thickening. The heart remains enlarged. No pleural effusions. No new pneumothorax. No new focal lung consolidations. No evidence for pulmonary edema. IMPRESSION: No change in the chronic interstitial thickening and cardiomegaly. Electronically signed by: Uche Miller M.D. 03/14/2017 2:57 PM Dictated Date/Time: 03/14/2017 2:52 PM
[2017-03-15] VITALS (10 sets, daily range): BP systolic 101–129; BP diastolic 59–69; PULSE 62–86; TEMP 36.6–36.7; O2SAT 87–92
--- NOTE | 2017-03-15 02:00 | NUR ---
ID: [id number]. Independent in room. VSS, Oxymax increased to 7L per MDs recommendation d/t desaturations in previous nights study. Denies SOB. Pt is saline locked, receiving IV Lasix. +2 pitting edema noted to BLE. Maintaining 1500cc fluid restriction. Plans to return home at D/C.
[2017-03-15 06:53] LABS: CALCIUM 8.9 mg/dl (8.5-10.1); CREATININE 0.89 mg/dl (0.60-1.40); POTASSIUM 3.5 mmol/L (3.5-5.1)
[2017-03-15] MEDS: ALBUT/IPRATROP 3MG/0.5MG NEB 3 ML VIAL INH SCH ×4 (07:03→18:57)
[2017-03-15] MEDS: SPIRONOLACTONE 25 MG TAB PO SCH (08:58)
[2017-03-15] MEDS: FLUTICASONE/SALMETEROL 250/50 (ADVAIR) 14 PUFF/1 INHALER INH SCH ×2 (08:58→20:20)
[2017-03-15] MEDS: TIOTROPIUM BROMIDE 5 PUFF/90 MCG INH INH SCH (08:58)
[2017-03-15] MEDS: FUROSEMIDE INJ 40 MG in SYRINGE 0 ML IV SCH ×2 (08:58→20:21)
[2017-03-15] MEDS: ASPIRIN 81 MG ECTAB PO SCH (08:58)
[2017-03-15] MEDS: AMLODIPINE BESYLATE 5 MG TAB PO SCH (08:59)
[2017-03-15] MEDS: POTASSIUM CHLORIDE 10 MEQ TABCR PO SCH (08:59)
[2017-03-15] MEDS: MULTIVITAMIN TAB PO SCH (08:59)
[2017-03-15] MEDS: ENOXAPARIN 40 MG/0.4 ML SYR SQ SCH (09:00)
[2017-03-15] MEDS: METOPROLOL SUCC 50MG EXT REL TAB PO SCH (09:00)
--- NOTE | 2017-03-15 09:42 | CARDIOLOGY PROGRESS NOTE ---
DATE: 03/15/2017 SUBJECTIVE: Mr. Berry is resting comfortably in bedside chair without complaints of chest discomfort. His dyspnea has improved. OBJECTIVE: VITAL SIGNS: Blood pressure is 101/59 with a regular pulse of 62. Respiratory rate is 18. The patient is afebrile at 36.6 degrees Celsius. Saturations 92% on 4 liters nasal cannula. NECK: Supple with full carotid upstrokes. There are no carotid bruits. Jugular venous pressure is flat at 90 degrees. There is no thyromegaly. CARDIOVASCULAR: Reveals a regular rhythm with a normal S1 and S2. Heart sounds are distant. No obvious murmurs. LUNGS: Clear without rales, rhonchi, or wheezes. ABDOMEN: Obese without bruits. EXTREMITIES: Reveal intact radial artery pulses bilaterally. 2+ pretibial edema is noted. Chronic venous stasis changes also noted. DATA: Electrolytes note a sodium of 138, potassium 3.5, chloride 101, bicarb 31, BUN 27, creatinine 0.89, glucose 72. Weight is 107.3 kg, down 1.2 kg from yesterday. IMPRESSION AND PLAN: 1. Acute decompensated right-sided and diastolic congestive heart failure -- patient continues diuresis. We have again discussed the importance of daily weights and sliding scale diuretics once discharged. 2. Presumed cor pulmonale, -- likely secondary to chronic respiratory failure from severe COPD/emphysema. 3. Pulmonary hypertension. 4. Peripheral vascular disease. 5. Cirrhosis. 6. Diabetes mellitus. 7. Villous adenoma -- found on colonoscopy 01/2017. Surgery planned but not yet scheduled.
--- NOTE | 2017-03-15 13:48 | Hospitalist Progress Note ---
Hospitalist Progress Note Date of Service Mar 15, 2017. Subjective Pt evaluation today including: conversation w/ patient Continues to diurese and lose weight, feeling better. Still hypoxic at times when placed on NC. He now qualifies for BiPAP which is excellent. No CP, no abd pain, no diarrhea All Other Systems: Reviewed and Negative Objective Vital Signs Date Time Temp Pulse Resp B/P (MAP) Pulse Ox O2 Delivery O2 Flow Rate FiO2 03/15/17 11:27 Mask 4.0 03/15/17 11:01 86 16 87 Nasal Cannula 4.0 03/15/17 07:24 36.6 62 18 101/59 (73) 92 Oxymask 4.0 03/15/17 07:04 63 16 91 Mask 6.0 03/15/17 00:36 92 Oxymask 6.0 03/14/17 23:05 36.6 79 21 133/70 (91) 90 Nasal Cannula 6.0 03/14/17 18:54 87 16 92 Mask 6.0 03/14/17 16:10 Oxymask 6.0 03/14/17 15:42 78 16 90 Mask 6.0 03/14/17 15:26 36.6 75 20 122/68 (86) 89 6.0 Physical Exam General Appearance: WD/WN, no apparent distress, + obese Eyes: normal inspection, sclerae normal ENT: hearing grossly normal, pharynx normal Neck: trachea midline Respiratory/Chest: lungs clear, normal breath sounds, no respiratory distress, no accessory muscle use Cardiovascular: regular rate, rhythm, no murmur, + pertinent finding (1-2+ pitting edema, woody, in legs bilat, improved from previous) Abdomen: normal bowel sounds, non tender, soft Extremities: + pertinent finding (+TTP over right medial ankle) Neurologic/Psychiatric: alert, normal mood/affect, oriented x 3 Skin: no rash Laboratory Results Last 24 Hours Test 03/15/17 05:45 Sodium Level 138 mmol/L Potassium Level 3.5 mmol/L Chloride Level 101 mmol/L Carbon Dioxide Level 31 mmol/L Anion Gap 6.0 mmol/L Blood Urea Nitrogen 27 mg/dl Creatinine 0.89 mg/dl Est Creatinine Clear Calc Drug Dose 101.8 ml/min Estimated GFR () 107.0 Estimated GFR (Non- 92.3 BUN/Creatinine Ratio 30.0 Random Glucose 72 mg/dl Calcium Level 8.9 mg/dl Chemistry Specimen Hemolysis Assessment and Plan Patient is a 61-year-old male with a history of COPD, chronic hypoxemic respiratory failure, hepatitis C which has been treated, cirrhosis, suspected severe pulmonary hypertension, gout, peripheral arterial disease, colon polyp, peripheral edema, and diabetes mellitus type 2, 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 Acute on chronic hypoxemic and hypercapnic resp failure/Severe PHTN and cor pulmonale/Cirrhosis/Right heart failure/Acute on chronic diastolic CHF/Mild COPD Exacerbation/Probable TERRELL/OHS-continues to diurese very well and renal function normal (-12L so far, -15kg), continues on OxyMask. However, still hypoxic at times even with Oxymask and/or 6LNC at rest. -He had PaCO2 of 38 on admission, then a 2nd ABG in the morning showed PaCO2 46. He has Hypoventilation syndrome, with FEV1/FVC>70% -Was initially treated with IV steroids for COPD exacerbation but then stopped. Now back on prednisone for gout flare. -Treated with Levaquin for Acute bronchitis and possible PNA seen on admission CXR, but CTA Chest on 03/10 shows no PNA-completed course -ECHO with grade 2 diastolic dysfunction, dilated RV with normal function, normal LVEF, significantly elevated right sided pressures suggesting severe PHTN. -Abd US shows mild-mod 4 quadrant ascites -Overnight Oximetry with 434 min spent <88% on OxyMask 6L -Troponin neg x 2 -continue IV lasix 40mg IV bid and convert to po lasix likely 60mg bid on discharge for continued diuresis-hopefully tomorrow -continue daily spironolactone -will need Oxymask for home use and nocturnal and increase to 7L for overnight, then will need formal Sleep Study arranged as outpt to qualify for CPAP -will ask RT to perform 2-step today or tomorrow to see what increased O2 demands are for at rest and with exertion -Appreciate Cardio and Pulm consultations-will need outpt f/u with both - decreased dose of amlodipine to 7.5mg daily which may be contributing to his lower extremity edema -follow renal function -continue fluid restriction and low Na+ diet, daily weights, consult Wire Weaver PAD-stable -continue ASA Cirrhosis, ascites/2 cm lesion right hepatic dome on CT Abd seen-synthetic function ok here -recommend f/u with GI outpt -Needs outpt MRI Liver to further evaluate 2 cm liver lesion-needs surveillance for HCC given h/o Hep C -may need surveillance EGD if has not already had for varices Prediabetes with hyperglycemia secondary to corticosteroids- HgbA1C 5.7% in 2016. AM fasting glucose now normal - holding metformin -no need for accuchecks COPD-improved - QID duonebs - continue Spiriva, Advair LE wounds-stable - held Keflex while receiving Levaquin -no further antibiotics at this time - continue daily dressing change with Aquacel - consult wound care appreciated HTN-well controlled - continue metoprolol, lowered dose of amlodipine to 7.5 for LE edema Right ankle pain-suspect gout given his history of this. Much improved after starting prednisone. Rt ankle xray with soft tissue edema but no osseous destruction or fracture -prednisone 20mg po daily x 5 days (today day#3) Proph -Lovenox for DVT prophylaxis Dispo- to home likely tomorrow with BiPAP arrangements being made through CM; needs further diuresis and improvement in oxygenation, 2-step
--- NOTE | 2017-03-15 13:58 | NUR ---
Case Management- Spoke with Dr. Bojorquez pt will likely be ready for discharge tomorrow. Zoe at [facility] aware of plan, they will be ready for delivery tomorrow. Appropriate scripts faxed.
--- NOTE | 2017-03-15 16:51 | PULMONARY PROGRESS NOTE ---
DATE: 03/15/2017 TIME: 04:00 p.m. SUBJECTIVE: The patient continues to feel a little better each day. He is very comfortable at rest. He has not exerted himself very much. The most he has done is to get to the bathroom and back. Unfortunately, he still has required fairly high concentrations of oxygen. He has been an OxyMask at times as well. His cough is minimal. He has continued to diurese nicely. OBJECTIVE: GENERAL: The patient appears comfortable at rest. VITAL SIGNS: Temperature is 36.7. Heart rate was 76 per minute. Blood pressure 120/63. EARS, NOSE, AND THROAT EXAMINATION: Unremarkable. The patient looks dramatically more comfortable than when I saw him on the date of his admission. NECK: Veins are still somewhat distended. LUNGS: Lung morton are clear. The breath sounds were mildly diminished. Saturation was 89% on 5 liters. EXTREMITIES: Have shown a dramatic improvement in edema. At the time of his admission, he had edema up to and including the pelvis. He now has edema down just in the lower extremities. He still has his legs wrapped. His weight has dramatically decreased. His cumulative negative water balance for his day is 12,455 mL. LABORATORY DATA: Electrolytes show sodium 138, potassium 3.5, chloride 101, and bicarbonate 31. BUN is 27 with a creatinine of 0.89. The BUN and creatinine have changed relatively little considering the degree of diuresis he has had. IMPRESSIONS: 1. Acute on chronic respiratory failure with hypoxia and hypercarbia. 2. Emphysema. 3. Cirrhosis. 4. Obesity hypoventilation syndrome. 5. Right heart failure. 6. Villous adenoma. COMMENTS AND RECOMMENDATIONS: The case was discussed with Dr. Bojorquez. She has been able to arrange a BiPAP for him. Hopefully, he will adapt and this will help. I have suggested that she set the BiPAP at 12/6. She states this has been cleared through the home care [facility] and his insurances. I would try to have physical therapy ambulate the patient tomorrow to make sure that he is strong enough to function at home. He has done very little since he has been here for the past 8 days. I would taper the prednisone down. I do not believe he has significant bronchospasm. He is currently on 20 mg of prednisone as of yesterday. Perhaps, would send him home with 20 mg for a few days and then 10 mg for a few days. I would continue him with his bronchodilators as he had been at home. He should see me in the office in 1-2 weeks after discharge. I suspect that the cirrhosis may be playing a significant role in our inability to oxygenate this patient. He does not have pulmonary embolism. His degree of lung dysfunction would not typically lend to such severe hypoxia. His prognosis is certainly guarded.
--- NOTE | 2017-03-15 23:11 | NUR ---
ID: [id number]. Independent in room. VSS, 02 sat 89% on 7L Oxymask. Pt is saline locked, receiving IV Lasix. +2 pitting edema noted to BLE. Maintaining 1500cc fluid restriction. Plans to return home at D/C.
[2017-03-16] VITALS (8 sets, daily range): BP systolic 111–148; BP diastolic 64–73; PULSE 61–76; TEMP 36.4–36.7; O2SAT 88–91
[2017-03-16 06:34] LABS: CREATININE 0.9 mg/dl (0.60-1.40); POTASSIUM 3.8 mmol/L (3.5-5.1)
[2017-03-16] MEDS: ALBUT/IPRATROP 3MG/0.5MG NEB 3 ML VIAL INH SCH ×3 (07:15→15:19)
[2017-03-16] MEDS: TIOTROPIUM BROMIDE 5 PUFF/90 MCG INH INH SCH (08:12)
[2017-03-16] MEDS: FLUTICASONE/SALMETEROL 250/50 (ADVAIR) 14 PUFF/1 INHALER INH SCH (08:12)
[2017-03-16] MEDS: ASPIRIN 81 MG ECTAB PO SCH (08:13)
[2017-03-16] MEDS: FUROSEMIDE INJ 40 MG in SYRINGE 0 ML IV SCH (08:13)
[2017-03-16] MEDS: AMLODIPINE BESYLATE 5 MG TAB PO SCH (08:13)
[2017-03-16] MEDS: POTASSIUM CHLORIDE 10 MEQ TABCR PO SCH (08:13)
[2017-03-16] MEDS: MULTIVITAMIN TAB PO SCH (08:13)
[2017-03-16] MEDS: SPIRONOLACTONE 25 MG TAB PO SCH (08:13)
[2017-03-16] MEDS: METOPROLOL SUCC 50MG EXT REL TAB PO SCH (08:14)
[2017-03-16] MEDS: ENOXAPARIN 40 MG/0.4 ML SYR SQ SCH (08:14)
--- NOTE | 2017-03-16 10:33 | NUR ---
Case Management- Unsure if pt will be ready for discharge today, updated Zoe at [facility]. Prescriptions for Bipap and overnight pox faxed. [facility] would be able to set up Bipap over the weekend if discharged. Addendum: 03/16/17 at 1458 by [employer] SERV Pt will have increased O2 needs at discharge new prescription faxed to [facility] Pt, spoke with Kelsi they received prescriptions pt will need to have a high flow concentrator placed in his home. Will need to determine specific discharge day. Addendum: 03/16/17 at 1552 by Fon[employer]ax SERV Zoe [facility] aware that pt is being discharged today. JENNIFER Dolan is aware of discharge and need for supplies this bimal. Also aware pt needs a nebulizer, H&P and script sent per her request. Asked Kelsi to call if there was anything missing, there have been issues in the past where P has not delivered supplies and not reported it back to case management. During earlier conversation with pt home health services offered, he declined.
[2017-03-16 10:35] LABS: ALBUMIN 3.1 gm/dl (3.4-5.0); TOTAL PROTEIN 7.4 gm/dl (6.4-8.2)
[2017-03-16] MEDS ORDERED: OPTIRAY 320 IV PRN (11:30)
--- NOTE | 2017-03-16 11:57 | PULMONARY PROGRESS NOTE ---
DATE: 03/16/2017 TIME: 10:35 a.m. SUBJECTIVE: The patient is feeling overall pretty well. He does not notice significant shortness of breath at rest. He continues to need a modest amount of oxygen. He states that respiratory walked him today. He could not maintain his oxygen with nasal cannula and they gave him an Oxymask. I could not find the actual report from this two step. It appears that maintaining the patient's oxygen levels will be difficult. OBJECTIVE: GENERAL: The patient appears comfortable. VITAL SIGNS: Temperature is 36.5. Weight on a standing scale today was 106 kilograms. On 04/11/2016 he was 115.3 kilograms. His negative balance for yesterday was 1630 mL. HEART: Heart rate was 62 per minute. Blood pressure 121/70. The rhythm was regular. LUNGS: Lung morton were clear. Fairly good breath sounds were heard throughout. Oxygen saturation was 90% on a 7 liter nasal cannula. EXTREMITIES: Further diminution in the edema which the patient has had. He still has wrappings around the lower legs. No laboratory studies were done today. Perhaps in light of the significant diuresis. He may need a BMP run prior to discharge. The patient's hypoxia and severe shunt remain as a major issue. His COPD in and of itself does not usually causes this degree of hypoxia. He has cirrhosis which may be a contributing factor. One last consideration might be could he have an intracardiac shunt. He has had an echo done. I do not know if that study was able to determine with certainty that he did or did not have a shunt through the heart. This may need to be discussed with Dr. Hicks of the cardiology department or with Dr. Head who read the echo. I believe the patient is about as good as he is going to be. He knows that when he ambulates would have to just go a little ways and then stop. He has a pulse ox to keep checking himself. I would send him home with the bronchodilators he is on currently. If he does not have a nebulizer at home already I would arrange that please. Perhaps this could be obtained from [facility] where I understand he will be getting his BiPAP from. I will be happy to see the patient as an outpatient in 1-2 weeks. Prognosis is certainly guarded.
--- NOTE | 2017-03-16 13:28 | Gastrointestinal Consultation ---
Gastrointestinal Consultation Date of Consultation: Mar 16, 2017 Attending Physician: Malina Bojorquez Consulting Physician: Rene Curiel Reason for Consultation: Cirrhosis, suspected hepatopulmonary syndrome. History of Present Illness Patient is a 61 year old male seen for incidental findings of liver cirrhosis on Chest CT and possible hepatopulmonary syndrome. He was admitted about 1 week ago for symptoms of increasing LE edema, SOB despite increasing his Lasix intake. Diagnosed with acute on chronic hypoxemia and hypercapnea respiratory failure, cor pulmonale, hx of COPD. He had been diuresed w IV Lasix, Spironolactone, net output 14.7L. He is still hypoxemic on O2 mask 5L. CTA chest/thorax w/o signs of PE or pleural effusion. Did have incidental finding of cirrhosis. LFTs relatively normal. Plt and INR normal. He does have sign of small to moderate ascites on abd u/s. He has hx HCV, treated w Interferon years ago in [place]. HCV RNA in 2012 negative. He also admits to hx of drug use, and ETOH abuse. He said about 30 yrs ago had liver bx and told had "early changes of cirrhosis". He has never had other liver disease workup. No records for EGD to r/o varices either. He did have colonoscopy by Dr. Andersen ( [facility]) 01/2017 w findings of TVA colon polyps. Past Medical/Surgical History Medical Problems: (1) CHF exacerbation Status: Acute (2) Hypoxia Status: Acute Past Medical History: See above, HTN, R hip DJD Past Surgical History: Unknown Family History Mother from CVA, DM Father from lung CA Social History Smoking Status: Former Smoker Alcohol Use: other (Hx of heavy use ) Drug Use: other (Hx of abuse) Marital Status: single Occupation Status: unemployed (disability), disabled Allergies Coded Allergies: No Known Allergies (Unverified , 03/07/17) Current Medications Home Meds and Scripts Medications Dose Route/Sig Max Daily Dose Days Date Category Dose Instructions Aspirin Ec (Aspirin) 81 Mg Tab 81 Mg PO DAILY 03/07/17 Reported Keflex (Cephalexin Monohydrate) 500 Mg Cap 500 Mg PO TID 03/05/17 Reported Lasix (Furosemide) 20 Mg Tab 20 Mg PO BID 03/02/17 Reported TAKE 20MG TABLET WITH 40MG TABLET FOR A TOTAL DOSE OF 60MG TWICE A DAY Toprol-Xl (Metoprolol Succinate) 50 Mg Tabcr 50 Mg PO QAM 01/12/17 Reported Spiriva Handihaler (Tiotropium [place]) 30 Puff/540 Mcg Aerp 1 Cap INH QAM 01/12/17 Reported Proventil Hfa (Albuterol Sulfate) 108 Mcg/Act Aer 2 Puff INH Q4H PRN 01/12/17 Reported Multivitamin (Multivitamins) Tab 1 Tab PO QAM 01/12/17 Reported Oxygen Gas 4 Liters NA CONTINOUS 01/12/17 Reported Glucophage Ext Rel (Metformin HCl) 500 Mg Tab 500 Mg PO QAM 01/12/17 Reported K-Tabs (Potassium Chloride) 10 Meq Tab 10 Meq PO QAM 01/12/17 Reported Lasix (Furosemide) 40 Mg Tab 40 Mg PO BID 01/12/17 Reported TAKE 40MG TABLET WITH A 20MG TABLET FOR A TOTAL DOSE OF 60MG TWICE A DAY Spironolactone 25 Mg Tab 25 Mg PO QAM 04/08/14 Reported Advair Diskus 250-50 Mcg/Dose (Fluticasone Prop/Salmeterol) 14 Puff/1 Inhaler Aerp 1 Puff INH BID 10/02/13 Reported Norvasc (Amlodipine Besylate) 10 Mg Tab 10 Mg PO QAM 01/31/13 Reported Review of Systems Constitutional: No fever, No chills Respiratory: + shortness of breath, No cough Abdomen: No pain, No nausea, No vomiting Skin: No rash, No itch, No jaundice Physical Exam Date Time Temp Pulse Resp B/P (MAP) Pulse Ox O2 Delivery O2 Flow Rate FiO2 03/16/17 11:31 62 16 91 Mask 5.0 03/16/17 07:41 36.5 62 20 121/70 (87) 90 Nasal Cannula 7.0 03/16/17 07:16 61 16 88 Mask 7.0 03/16/17 00:57 89 Oxymask 7.0 03/16/17 00:24 36.7 76 20 111/64 (80) 89 Oxymask 7.0 03/15/17 20:35 89 Oxymask 7.0 03/15/17 20:23 77 129/69 (89) 89 Oxymask 7.0 03/15/17 18:59 81 16 91 Mask 7.0 03/15/17 16:24 92 Mask 7.0 03/15/17 15:38 36.7 76 16 120/63 (82) 89 Nasal Cannula 5.0 03/15/17 15:25 Mask 6.0 03/15/17 14:27 68 16 91 Mask 6.0 General Appearance: WD/WN, no apparent distress, + obese Eyes: normal inspection, PERRL, EOMI Neck: supple, no JVD, trachea midline Respiratory/Chest: no respiratory distress, no accessory muscle use, + decreased breath sounds, + pertinent finding (On O2 mask 5L) Cardiovascular: regular rate, rhythm, no gallop, no murmur Abdomen: normal bowel sounds, non tender, soft, + distended (mild) Extremities: + swelling Neurologic/Psych: alert, normal mood/affect, oriented x 3 Skin: normal color, no jaundice, no rash Laboratory Results Last 24 Hours Test 03/16/17 05:28 03/16/17 10:52 Sodium Level 138 mmol/L Potassium Level 3.8 mmol/L Chloride Level 103 mmol/L Carbon Dioxide Level 30 mmol/L Anion Gap 5.0 mmol/L Blood Urea Nitrogen 27 mg/dl Creatinine 0.90 mg/dl Est Creatinine Clear Calc Drug Dose 100.7 ml/min Estimated GFR () 106.5 Estimated GFR (Non- 91.9 BUN/Creatinine Ratio 29.7 Random Glucose 76 mg/dl Calcium Level 9.0 mg/dl Magnesium Level 2.3 mg/dl Total Bilirubin 0.8 mg/dl Direct Bilirubin mg/dl 0.3 mg/dl Aspartate Amino Transf (AST/SGOT) 40 U/L Alanine Aminotransferase (ALT/SGPT) 37 U/L Alkaline Phosphatase 72 U/L Total Protein 7.4 gm/dl Albumin 3.1 gm/dl Chemistry Specimen Hemolysis Impression Patient is a 61 year old male admitted for acute on chronic respiratory failure , still requiring high flow O2 despite diuresis. Hx of pulmonary HTN, R heart failure, COPD. CTA chest/thorax w/o PE or pleural effusion, noted liver cirrhosis and on u/s exam he has small to moderate amt of abd ascites. Hx of HCV and drug/ETOH abuses. HCV treated w Interferon, as of 2012, HCV RNA negative. Less likely has hepatopulmonary syndrome given on effusions. Plan - Will obtain CT abd/pelvis to eval liver (also ? mass on R hepatic dome), and to check for ascites amt given last u/s was done 1 week ago and he had been diuresed well since then. - If high volume ascites plan for paracentesis - Liver doppler to r/o PVT - Discussed w primary team to consider increasing diuretics dose as long as renal function and electrolytes can tolerate it. Currently on Lasix 40mg IV BID and Spironolactone 25mg daily - Consider Echo bubble to r/o intrapulmonary shunt. - He will need cirrhosis workup and continued care upon DC by [facility] (Dr. Andersen) . Will call office to make f/u appt. Persistent hypoxemia without alternative explanation in the setting of cirrhosis is highly suspicious for hepatopulmonary syndrome. Recommend bubble study (TTCE) for diagnosis. If the diagnosis is confirmed, liver transplantation is the only specific treatment (but his MELD score is low). .ATTESTATION: I have performed a history and physical examination of this patient and reviewed the electronic record. Specifically, on physical examination there is no asterixis and ankle edema is present. I have discussed the case with LULU Mullins. The above note reflects my findings, conclusions, and recommendations. Rene Curiel MD
--- NOTE | 2017-03-16 14:06 | DIAGNOSTIC IMAGING REPORT ---
ABD/PELVIS IV AND ORAL CONT CLINICAL HISTORY: 61 years-old Male presenting with eval liver cirrhosis, mass; check for ascites . TECHNIQUE: Multidetector CT of the abdomen and pelvis was performed after the administration of oral and intravenous contrast. IV contrast: 94 mL of Optiray 320. A dose lowering technique was used consistent with the principles of ALARA (as low as reasonably achievable). COMPARISON: 02/25/2016. CT DOSE (mGy.cm): The estimated cumulative dose is 963.45 mGycm. FINDINGS: Wool Sacker topogram: Bilateral total hip arthroplasties. Cardiomegaly. Lung bases: Emphysema. Mosaic attenuation. Mild interlobular septal thickening. Dependent changes. Multichamber enlargement of the heart. Coronary artery calcification. No pericardial or pleural effusion. Liver: Nodular contour consistent with cirrhosis. The single phase examination limits evaluation for lesion. Allowing for this, subcentimeter hypodensity at the hepatic dome likely hepatic cyst or hamartoma. No other focal lesion. Small parenchymal calcification near the fissure for the ligamentum teres. Patent hepatic vasculature. Biliary: No intrahepatic or extrahepatic biliary ductal dilatation. Gallbladder contains gallstones. Pancreas: Mild parenchymal atrophy. 1.9 cm cystic-appearing lesion along the ventral aspect of the pancreatic tail (series 3 image 133) no pancreatic ductal dilatation. Spleen: Top normal in size. Adrenal glands: Normal. Kidneys and ureters: Few punctate calcifications in the kidneys could represent renal vascular calcification versus punctate nonobstructing calculi. No hydronephrosis. Mild cortical thinning bilaterally. No other parenchymal abnormality. Ureters normal. Limited evaluation of the distal ureters secondary to streak artifact arising from the bilateral hip prostheses. Bladder: Incompletely evaluated secondary to underdistention. Pelvic organs: Not well evaluated secondary to streak artifact. Bowel: Limited evaluation of the rectum secondary to streak artifact. Otherwise mild stool burden throughout normal caliber colon. No bowel obstruction. Oral contrast has not yet transited to the terminal ileum. Peritoneal cavity: Trace free fluid in the pelvis. Lymph nodes: Numerous subcentimeter retroperitoneal lymph nodes may be reactive. Enlarged portacaval lymph node measuring 12 mm in short axis (series 3 image 133), indeterminate. Few additional prominent lymph nodes in the vasquez hepatis/gastrohepatic region measuring 15 mm in the short axis (series 3 image 118). Vasculature: Atherosclerosis of the normal caliber abdominal aorta. IVC patent. Extensive calcified and noncalcified atherosclerotic plaque along the proximal 4 cm of the superior mesenteric artery better demonstrated on prior CTA. No varices. Abdominal wall: Gas noted in the subcutaneous tissue consistent with medication administration. Musculoskeletal: Bilateral total hip prostheses. Degenerative change of the spine. IMPRESSION: 1. Trace ascites in the pelvis. 2. Cirrhosis. This examination is not diagnostic for hepatocellular carcinoma, which requires an arterial phase. No CT evidence of portal hypertension. 3. Cholelithiasis. 4. Emphysema and small airways disease. 5. Cardiomegaly with mild volume overload. 6. Enlarged lymph nodes in the upper abdomen may be reactive, especially if the patient has a history of hepatitis. However, attention on follow-up. Electronically signed by: Milton Johnson M.D. 03/16/2017 2:04 PM Dictated Date/Time: 03/16/2017 1:47 PM
--- NOTE | 2017-03-16 14:18 | DIAGNOSTIC IMAGING REPORT ---
DUPLEX PORTAL HEPATIC VEINS CLINICAL HISTORY: ascites, r/o portal vein thrombosis. COMPARISON STUDY: Abdomen and pelvis CT 03/16/2017. FINDINGS: The portal and hepatic veins are patent and demonstrate normal direction of flow. There is a small gallstone identified. No gallbladder wall thickening. The visualized IVC is also patent. IMPRESSION: The portal and hepatic veins are patent. Electronically signed by: Uche Miller M.D. 03/16/2017 2:17 PM Dictated Date/Time: 03/16/2017 2:15 PM
[2017-03-16] MEDS ORDERED: SPIRONOLACTONE 25 MG TAB PO ONE (15:15)
[2017-03-16] MEDS ORDERED: OXGN (16:51)
[2017-03-16] MEDS ORDERED: ALBINS INH (16:51)
[2017-03-16] MEDS ORDERED: NRV5 PO (16:51)
[2017-03-16] MEDS ORDERED: SPIR25TA6 PO (16:51)
[2017-03-16] MEDS ORDERED: FRS/40 PO (16:51)
[2017-03-16] MEDS ORDERED: PRD20 PO (16:51)
--- NOTE | 2017-03-16 17:02 | NUR ---
physical meteorologist [facility] Physician [facility]: Follow up info added to DC instructions - "Please, follow up with Dr. Adams on March 22 at 1:20 pm. *If you need to change this appointment, you can call the office at [phone]. Please, follow up at [facility] Cardiology Office with Gustabo Candelaria PA-C on SundayMarch 23 at 10:00 am. *This office is located in [address] of [facility] building [facility]. If you need to change this appointment, you can call the office at [phone]. Please, follow up at [facility] Physician [facility]'s Pulmonology Office with Dr. Darden's project construction assistant manager, Sanna Bernardo PA-C, on SundayMarch 28 at 1:00 pm. *This office is located in [address] of [facility] [place][note 2] next to [facility]. If you need to change this appointment you can call their office at [phone]. Please, follow up with Gastroenterology - the nurse should be calling you with the appointment details. If you don't hear from someone within 1 week, then you should call me. *This office is located at [address] [facility] in [place] - this is in the [place] area. The office number is [phone]." Darrick MORGAN is to arrange the follow up with Dr. Andersen. Pt has [facility] insurance so he is unable to follow up with Darrick MORGAN as an outpatient.
--- NOTE | 2017-03-16 17:10 | Discharge Instructions ---
Discharge Instructions Date of Service Mar 16, 2017. Admission Reason for Admission: Chf Exacerbation Discharge Discharge Diagnosis / Problem: Acute on chronic hypoxemic and hypercapnic respiratory failure, CHF Discharge Goals Goal(s): Improve disease control, Diagnostic testing, Therapeutic intervention Activity Recommendations Activity Limitations: as noted below Exercise/Sports Limitations: gradually increase as tolerated Shower/Bathe: no limitations . Instructions / Follow-Up Instructions / Follow-Up You were admitted due to very low oxygen levels. You had a lot of fluid taken off of you with IV lasix. You will now need to be on BiPAP at nighttime, and an increased amount of oxygen during the day and night, as well as increased oxygen with walking. Please follow up with Pulmonology, Cardiology, GI, and your PCP as scheduled for you. You [facility]. Changes were made to your medication list. Please make sure you follow the printed medication list very carefully and note the changes. Current Hospital Diet Patient's current hospital diet: AHA Diet (Heart Healthy), Low Sodium Diet (2gm Na) Discharge Diet Recommended Diet: AHA Diet (Heart Healthy), Low Sodium Diet (2gm Na) Fluid Restriction: 1800 ml (7 cups) Procedures Procedures Performed: CT abdomen/pelvis CT [facility] Chest xrays Right ankle xray Echocardiogram Liver ultrasound Abdominal ultrasound Pending Studies Studies pending at discharge: no Laboratory Results Last 24 Hours Test 03/16/17 05:28 03/16/17 10:52 Sodium Level 138 mmol/L Potassium Level 3.8 mmol/L Chloride Level 103 mmol/L Carbon Dioxide Level 30 mmol/L Anion Gap 5.0 mmol/L Blood Urea Nitrogen 27 mg/dl Creatinine 0.90 mg/dl Est Creatinine Clear Calc Drug Dose 100.7 ml/min Estimated GFR () 106.5 Estimated GFR (Non- 91.9 BUN/Creatinine Ratio 29.7 Random Glucose 76 mg/dl Calcium Level 9.0 mg/dl Magnesium Level 2.3 mg/dl Total Bilirubin 0.8 mg/dl Direct Bilirubin mg/dl 0.3 mg/dl Aspartate Amino Transf (AST/SGOT) 40 U/L Alanine Aminotransferase (ALT/SGPT) 37 U/L Alkaline Phosphatase 72 U/L Total Protein 7.4 gm/dl Albumin 3.1 gm/dl Chemistry Specimen Hemolysis Hemoglobin A1c Test 01/19/17 15:50 Range/Units Estimated Average Glucose 117 mg/dl Hemoglobin A1c 5.7 H 4.5-5.6 % Lipid Panel Test 01/19/17 15:50 Range/Units Triglycerides Level 81 0-150 mg/dl Cholesterol Level 127 0-200 mg/dl HDL Cholesterol 25 mg/dl Cholesterol/HDL Ratio 5.1 LDL Cholesterol, Calculated 86 mg/dl Medical Emergencies . Who to Call and When: Medical Emergencies: If at any time you feel your situation is an emergency, please call 911 immediately. . Non-Emergent Contact Non-Emergency issues call your: Primary Care Provider, Mold Finisher, Associate Attorney Call Non-Emergent contact if: temperature is above 100.5, you have any medication questions if you sart feeling worsening shortness of breath, cough, or for any other acute concerns . . "Provider Documentation" section prepared by Malina Bojorquez. . VTE Core Measure Inpt VTE Proph given/why not?: Enoxaparin (Lovenox)SQ
--- NOTE | 2017-03-16 17:56 | NUR ---
A: Patient dressed self. SL removed intact from right forearm. Discharge information and scripts given to patient. Patient has own portable tank here. Patient's sister providing transport. Patient left the floor via wheelchair with legend maker at [phone]. All belongings and paperwork sent with patient.
--- NOTE | 2017-03-16 20:29 | Discharge Summary ---
Discharge Summary Date of Service Mar 16, 2017. Discharge Summary Admission Date: Mar 07, 2017 at 19:25 Discharge Date: Mar 16, 2017 Discharge Disposition: Home Principal Diagnosis: Acute on chronic hypoxemic and hypercapnic respiratory failure Problems/Secondary Diagnoses: Acute on chronic diastolic CHF, Right sided heart failure Obesity hypoventilation syndrome COPD with acute exacerbation Chronic hypoxemic respiratory failure HTN History of Hepatitis C -treated Cirrhosis with mild ascites Hepatic lesion seen on CT Pulmonary hypertension Gout with acute flare in right ankle Peripheral arterial disease Large colon polyp Peripheral edema TERRELL Ascites Prediabetes with hyperglycemia secondary to corticosteroids Lower extremity wounds Obesity, BMI 36 Immunizations: Have You Had Influenza Vaccine: Yes Influenza Vaccine Date: Dec 31, 2012 History of Tetanus Vaccine?: unsure History of Pneumococcal: No History of Hepatitis B Vaccine: Yes Hepatitis Immunization Date: Jan 28, 2003 Procedures: CT abd/pel CTA Chest Chest xray Abdomen US for ascites Ankle xray Liver US ECHO Consultations: Pulmonology Cardiology Gastroenterology Medication Reconciliation New Medications: Albuterol Sulf (Albuterol Sulfate) 2.5 Mg/3 Ml Nebu 2.5 MG INH Q4 for SOB/Wheezing for 30 Days, #1 BOX Amlodipine Besylate (Amlodipine Besylate) 5 Mg Tab 7.5 MG PO QAM for 30 Days, #45 TAB Note, this is a LOWER DOSE than previous Prednisone (Prednisone) 20 Mg Tab 20 MG PO QAM, #3 TAB x 2 days then 10mg daily x 2 days, then STOP Changed Medications: Furosemide (Lasix) 40 Mg Tab 60 MG PO QAM, #75 TAB (Changed from: 40 MG; BID; TAKE 40MG TABLET WITH A 20MG TABLET FOR A TOTAL DOSE OF 60MG TWICE A DAY) and take 40mg po qPM at 5 PM Home O2 Therapy (Oxygen) Gas 5-10 LITERS NA CONTINOUS for 30 Days, BTL (Changed from: 4 LITERS) Spironolactone (Spironolactone) 25 Mg Tab 50 MG PO QAM, #60 TABS (Changed from: 25 MG) Continued Medications: Albuterol Sulfate (Proventil Hfa) 108 Mcg/Act Aer 2 PUFF INH Q4H PRN for Shortness of Breath Aspirin (Aspirin Ec) 81 Mg Tab 81 MG PO DAILY Fluticasone Prop/Salmeterol (Advair Diskus 250-50 Mcg/Dose) 14 Puff/1 Inhaler Aerp 1 PUFF INH BID Metformin Ext Rel (Glucophage Ext Rel) 500 Mg Tab 500 MG PO QAM, TAB Metoprolol Succ (Toprol Xl) (Toprol-Xl) 50 Mg Tabcr 50 MG PO QAM, #30 TAB Multivitamin (Multivitamin) Tab 1 TAB PO QAM, TAB Potassium Chloride (K-Tabs) 10 Meq Tab 10 MEQ PO QAM Tiotropium [place] (Spiriva Handihaler) 30 Puff/540 Mcg Aerp 1 CAP INH QAM, INHALER Discontinued Medications: Amlodipine (Norvasc) 10 Mg Tab 10 MG PO QAM, TAB Cephalexin Monohydrate (Keflex) 500 Mg Cap 500 MG PO TID, #30 CAP 1 Refill Furosemide (Lasix) 20 Mg Tab 20 MG PO BID TAKE 20MG TABLET WITH 40MG TABLET FOR A TOTAL DOSE OF 60MG TWICE A DAY Discharge Exam Pt feeling well, feels some LEY if walks the halls, otherwise fine. Continues to diurese, legs much less swollen. No chest pain, no abd pain, no other concerns. Very anxious for discharge to home today. I discussed his case with Pulmonology and GI at length today. Physical Exam Vitals reviewed General Appearance: WD/WN, no apparent distress, + obese Eyes: normal inspection, sclerae normal ENT: hearing grossly normal, pharynx normal Neck: trachea midline Respiratory/Chest: lungs clear, normal breath sounds, no respiratory distress, no accessory muscle use Cardiovascular: regular rate, rhythm, no murmur, + pertinent finding (1-2+ pitting edema, woody, in legs bilat, much improved from previous) Abdomen: normal bowel sounds, non tender, soft Extremities: + pertinent finding (mild +TTP over right medial ankle) Neurologic/Psychiatric: alert, normal mood/affect, oriented x 3 Skin: no rash, legs with kerlix wraps and dressings in place, not removed, no erythema Review of Systems: Constitutional: No fever, No chills Eyes: No problem reported ENT: No problem reported Respiratory: + dyspnea on exertion, No cough Cardiovascular: No chest pain Abdomen: No pain, No nausea, No vomiting, No diarrhea, No constipation Musculoskeletal: + joint pain (mild stiffness remains in right ankle) Genitourinary - Male: No problem reported Neurologic: No problem reported Psychiatric: No problem reported Endocrine: No problem reported Hematologic / Lymphatic: No problem reported Integumentary: No problem reported Hospital Course Patient is a 61-year-old male with a history of COPD, chronic hypoxemic respiratory failure, hepatitis C which has been treated, cirrhosis, suspected severe pulmonary hypertension, gout, peripheral arterial disease, colon polyp, peripheral edema, and diabetes mellitus type 2, 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 Acute on chronic hypoxemic and hypercapnic resp failure/Severe PHTN and cor pulmonale/Cirrhosis/Right heart failure/Acute on chronic diastolic CHF/Mild COPD Exacerbation/TERRELL/Obesity hypoventilation Syndrome-was aggressively diuresed and renal function remained normal (-13L, -16.3kg body weight during the admission), continues on OxyMask 5L at rest and 10L with exertion. -He had PaCO2 of 38 on admission, then a 2nd ABG in the morning showed PaCO2 46. He has Hypoventilation syndrome, with FEV1/FVC>70% -PaO2 as low as 49 on 6LNC -needs BiPAP at nighttime for OHS-to be delivered to his home upon discharge -Was initially treated with IV steroids for COPD exacerbation but then stopped. Now back on prednisone for gout flare and tapering down after discharge. -Treated with Levaquin for Acute bronchitis and possible PNA seen on admission CXR, but CTA Chest on 03/10 shows no PNA-completed course of abx -ECHO with grade 2 diastolic dysfunction, dilated RV with normal function, normal LVEF, significantly elevated right sided pressures suggesting severe PHTN. -Abd US shows mild-mod 4 quadrant ascites, then CT abd/pel a few days later showed trace ascites which is improved -Overnight Oximetry with 434 min spent <88% on OxyMask 6L -Troponin neg x 2 -received IV lasix 40mg IV bid and converted to po lasix likely 60mg in AM and 40mg qPM, along with increased dose of spironolactone to 50mg daily on discharge for continued diuresis -Appreciate Cardio and Pulm consultations-will need outpt f/u with both in near future - decreased dose of amlodipine to 7.5mg daily which may be contributing to his lower extremity edema -follow renal function as outpatient -continue fluid restriction and low Na+ diet, daily weights at home -Needs ECHO Bubble study done as outpatient at some point to exclude shunt as cause of hypoxemia-can be ordered by Pulm or Cardiology PAD-stable -continue ASA -f/u with Dr. Mendoza when able to for possible intervention Cirrhosis/h/o treated Hep C/Ascites/2 cm lesion right hepatic dome on CT- synthetic function ok here, MELD score low. Seen by EDDIE Hollingsworth (cross covering for Dr. Andersen) to get opinion about possibility of Hepatopulmonary syndrome as cause of his profound hypoxemia. Not likely with not much evidence of portal HTN on imaging. -recommend f/u with GI outpt -Needs outpt MRI Liver to further evaluate 2 cm liver lesion-needs surveillance for HCC given h/o Hep C -may need surveillance EGD if has not already had for varices Prediabetes with hyperglycemia secondary to corticosteroids- HgbA1C 5.7% in 2016. AM fasting glucose now normal - restart metformin on discharge -no need for accuchecks COPD-improved - QID duonebs - continue Spiriva, Advair -tapering down po steroids after discharge LE wounds-stable - was on Keflex prior to admission, then full course of Levaquin here, no evidence of further infection -no further antibiotics at this time - continue daily dressing change with Aquacel - consult wound care appreciated and advised to f[facility] HTN-well controlled - continue metoprolol, lowered dose of amlodipine to 7.5 for LE edema Right ankle pain-suspect gout given his history of this. Much improved after starting prednisone. Rt ankle xray with soft tissue edema but no osseous destruction or fracture -prednisone 20mg po daily x 5 days (today day#4) Proph -Lovenox for DVT prophylaxis Dispo- to home today with BiPAP Total Time Spent: Greater than 30 minutes This includes examination of the patient, discharge planning, medication reconciliation, and communication with other providers. Discharge Instructions Please refer to the electronic Patient Visit Report (Discharge Instructions) for additional information. Follow-Up Pulmonology and Cardiology within 1-2 weeks PCP within 1 week Gastroenterology within 1 month Will need limited ECHO with bubble study ordered by Pulmonology or Cardiology as outpatient to look for intracardiac shunt Additional Copies To Panfilo Darden DO; Earnest Andersen, Josh.Syed; Rene Hicks M.D.; Anu Adams M.D.
[2017-03-17] MEDS ORDERED: SPIRONOLACTONE 25 MG TAB PO SCH (08:00)
[2017-10-04] MEDS ORDERED: LSX20 PO (11:27)
[2017-10-04] MEDS ORDERED: AMLO5TAB3 PO (11:27)
[2017-10-04] MEDS ORDERED: FURO-85 PO (11:27)
[2017-11-02] MEDS ORDERED: OXYC-90 PO (08:09)
[2017-11-02] MEDS ORDERED: SPIR25TA6 PO (08:19)
== END 2017-03-16 17:50 | disposition home or self-care (01) | DRG 291 ==
LOC: EDBD 17:00 → C.EDB 17:01 → C.2T 19:25 → CANRESERV 19:34 → ENRESERV 19:34 → C.4E 03-11 12:54
PROVIDERS: ADMIT Family Medicine; ATTEND Family Medicine
DX: I11.0 Hypertensive heart disease with heart failure (principal); J96.21 Acute and chronic respiratory failure with hypoxia; I50.33 Acute on chronic diastolic (congestive) heart failure; J44.1 Chronic obstructive pulmonary disease with (acute) exacerbation; R18.8 Other ascites; E66.2 Morbid (severe) obesity with alveolar hypoventilation; J96.22 Acute and chronic respiratory failure with hypercapnia; E11.65 Type 2 diabetes mellitus with hyperglycemia; M16.11 Unilateral primary osteoarthritis, right hip; K74.60 Unspecified cirrhosis of liver; J20.9 Acute bronchitis, unspecified; F17.200 Nicotine dependence, unspecified, uncomplicated; Z84.82 Family history of sudden infant death syndrome; Z80.1 Family history of malignant neoplasm of trachea, bronchus and lung; I27.20 Pulmonary hypertension, unspecified; Z86.19 Personal history of other infectious and parasitic diseases; M1A.0710 Idiopathic chronic gout, right ankle and foot, without tophus (tophi); T38.0X5A Adverse effect of glucocorticoids and synthetic analogues, initial encounter; Y92.019 Unspecified place in single-family (private) house as the place of occurrence of the external cause; Z68.36 Body mass index [BMI] 36.0-36.9, adult; S81.801A Unspecified open wound, right lower leg, initial encounter; S81.802A Unspecified open wound, left lower leg, initial encounter; K76.81 Hepatopulmonary syndrome; I27.81 Cor pulmonale (chronic); Z79.84 Long term (current) use of oral hypoglycemic drugs

== ENCOUNTER → 2017-05-03 | Outpatient (CLI) | payer OTHER ==
[~2017-05-03] MED LIST changes: +ALBINS INH; -AMLO10TA3 PO; -ASPCH81X PO; +ASPI81TA28 PO; -CEPH500C2 PO; -FURO-85 PO; +NRV5 PO; +PRD20 PO; -SPIR25TA6 PO; +SPR25 PO
--- NOTE | 2017-05-03 14:11 | ECHOCARDIOGRAM REPORT ---
*NOTICE TO RECEIVING CONSTITUTION PARTY AGENCY This information is strictly Confidential and protected under [place] law. [place] law prohibits you from making any further disclosure of this information unless further disclosure is expressly permitted by the written consent of the person to whom it pertains or is authorized by law. A general authorization for the release of medical or other information is not sufficient for this purpose. Hospital accepts no responsibility if the information is made available to any other person, INCLUDING THE PATIENT. Interpretation Summary * Name: DANIELLE LOYD Study Date: 05/03/2017 12:36 PM BP: 130/78 mmHg * Patient Location: Cardiopulmonary Lab HR: 84 * : 1955 (M/d/yyyy) Gender: Male Height: 67 in * Age: 62 yrs Ethnicity: [place] Weight: 219 lb * Ordering Physician: Panfilo Darden * Referring Physician: Panfilo Darden * Performed By: Bruce Vaughn RCS * * Reason For Study: SOB, Hypoxema * BSA: 2.1 m2 * -- Conclusions -- * Limited study for evaluation of PFO * Contrast injection did not demonstrate any evidence of PFO * Atrial septum appears to be intact * There is right-sided chamber dilation as noted on the last echo dated 03/08/2017 Procedure Details * A two-dimensional transthoracic echocardiogram was performed. * A saline contrast injection was performed to assess for cardiac shunting. * The injection was performed through an intravenous line in the left arm. * The attending nurse who injected the saline contrast was Domingo Khan RN. * A total of 40 cc of agitated saline was given. * Limited views were obtained.
== END | disposition home or self-care (01) ==
LOC: C.CPL 12:26
PROVIDERS: ATTEND Internal Medicine Pulmonary Disease
DX: I27.20 Pulmonary hypertension, unspecified (principal); R09.02 Hypoxemia

== ENCOUNTER → 2017-05-25 | Outpatient (CLI) | payer OTHER ==
[2017-05-25 16:11] LABS: ALBUMIN 3.4 gm/dl (3.4-5.0); AST/SGOT 20 U/L (15-37); BLOOD UREA NITROGEN 24 mg/dl (7-18); CALCIUM 9.5 mg/dl (8.5-10.1); CARBON DIOXIDE 23 mmol/L (21-32); CREATININE 1.19 mg/dl (0.60-1.40); GLUCOSE 85 mg/dl (70-99); POTASSIUM 3.8 mmol/L (3.5-5.1); SODIUM 135 mmol/L (136-145)
[2017-05-25 16:23] LABS: ALKALINE PHOSPHATASE 94 U/L (45-117); ALT/SGPT 28 U/L (12-78); TOTAL PROTEIN 8.3 gm/dl (6.4-8.2)
[2017-05-26 07:54] LABS: HEMOGLOBIN A1C 5.4 % (4.5-5.6)
== END | disposition home or self-care (01) ==
LOC: C.LAB 17:58
PROVIDERS: ATTEND Physician Assistant Medical
DX: K74.60 Unspecified cirrhosis of liver (principal); I27.81 Cor pulmonale (chronic)

== ENCOUNTER → 2017-10-04 | Outpatient (CLI) | payer OTHER ==
[~2017-10-04] MED LIST changes: +AMLO5TAB3 PO; +FURO-85 PO; +LSX20 PO; +SPIR25TA6 PO; -SPR25 PO
[2017-10-04 12:48] LABS: BASO % 0.6 %; BASO ABS # 0.08 K/uL (0-0.2); EOS % 0.9 %; EOS ABS # 0.13 K/uL (0-0.5); HEMATOCRIT 46.9 % (42-52); HEMOGLOBIN 17.1 g/dL (14.0-18.0); IG# 0.08 K/uL (0.00-0.02); LYMPH % 10.9 %; LYMPH ABS # 1.55 K/uL (1.2-3.4); MEAN CELL VOLUME 92.1 fL (80-100); MEAN CORPUSCULAR HEMOGLOBIN 33.6 pg (25-34); MEAN CORPUSCULAR HGB CONC 36.5 g/dl (32-36); MEAN PLATELET VOLUME 10.1 fL (7.4-10.4); MONO % 7.1 %; MONO ABS # 1.01 K/uL (0.11-0.59); NEUT % 79.9 %; NEUT ABS # 11.37 K/uL (1.4-6.5); PLATELET COUNT 196 K/uL (130-400); RED CELL DISTRIBUTION WIDTH CV 14.4 % (11.5-14.5); RED CELL DISTRIBUTION WIDTH SD 48.5 fL (36.4-46.3); WHITE BLOOD COUNT 14.22 K/uL (4.8-10.8)
[2017-10-04 12:56] LABS: PTT PATIENT 27.3 SECONDS (21.0-31.0)
[2017-10-04 13:27] LABS: ALBUMIN 3.6 gm/dl (3.4-5.0); ALKALINE PHOSPHATASE 94 U/L (45-117); ALT/SGPT 26 U/L (12-78); AST/SGOT 18 U/L (15-37); BLOOD UREA NITROGEN 26 mg/dl (7-18); CALCIUM 9.5 mg/dl (8.5-10.1); CARBON DIOXIDE 27 mmol/L (21-32); CREATININE 1.35 mg/dl (0.60-1.40); GLUCOSE 110 mg/dl (70-99); POTASSIUM 5.1 mmol/L (3.5-5.1); SODIUM 135 mmol/L (136-145); TOTAL PROTEIN 8.4 gm/dl (6.4-8.2)
== END | disposition home or self-care (01) ==
LOC: C.CPL 10:59
PROVIDERS: ATTEND Surgery
DX: Z01.812 Encounter for preprocedural laboratory examination (principal)